=== PATIENT | male | born 1955 | race Caucasian/White ===

== ENCOUNTER 2016-09-17 01:52 | Inpatient (IN) | payer MEDICARE, OTHER ==
[2016-09-17] MEDS ORDERED: Acetaminophen 325 MG Tab ONE (02:09)
[2016-09-17 02:16] LABS: CHLORIDE,CL 102 mEq/L (98-106); SODIUM,NA 141 mEq/L (136-145)
--- NOTE | 2016-09-17 02:52 | EDM.PDOC ---
ED HPI GENERAL MEDICAL PROBLEM - General Chief Complaint: Diabetic Complaint Stated Complaint: hypoglycemia Time Seen by Provider: 09/17/16 01:55 Source of Information: Reports: Patient, EMS, Family () History Limitations: Reports: Other (HEARING LOSS) - History of Present Illness INITIAL COMMENTS - FREE TEXT/NARRATIVE: HARJINDER IS A 60 YO MALE WHO PRESENTS TO THE ER VIA [facility]. EMS WAS DISPATCHED TO HIS HOUSE WITH CONCERNS OF A HYPOGLYCEMIC EPISODE. UPON ARRIVAL GLUCOSE WAS GIVEN TO PATIENT AND HE BECAME MORE ALERT. STATES HE HAS BEEN COMPLAINING OF NOT FEELING VERY WELL TODAY. HAS BEEN COMPLAINING OF SOME ABDOMINAL DISCOMFORT AND NAUSEA. UPON ARRIVAL HE HAS BEEN ALERT AND ORIENTATED, ANSWERING ALL QUESTIONS APPROPRIATELY. HARJINDER STATES HE WOKE UP THIS EVENING WITH THE SHAKES. STATES HE DIDN'T FEEL IF HE IS RUNNING A FEVER, JUST COULDN'T STOP SHAKING. HE ADMITS HE HAD SOME MILD DIARRHEA YESTERDAY BUT STATES HE DOES HAVE A HISTORY OF LOOSE STOOLS. NO BOWEL MOVEMENTS TODAY. HE IS A KNOWN DIABETIC AND TAKES NOVOLOG AND LANTUS. HAS NOT TAKEN ANY MEDICATIONS OR INSULIN THIS EVENING. Onset: Today Location: Reports: Abdomen Associated Symptoms: Reports: Fever/Chills, Headaches, Loss of Appetite, Nausea/ Vomiting (NAUSEA, NO VOMITING). Denies: Confusion, Chest Pain, Cough, cough w sputum, Diaphoresis, Rash, Shortness of Breath, Weakness Lower Abdominal Pain Score (Numeric/FACES): 5 - Related Data Allergies Allergy/AdvReac Type Severity Reaction Status Date / Time vancomycin Allergy Intermediate Rash Verified 09/17/16 02:37 Home Meds: Home Meds Albuterol Sulfate [Proair Respiclick] 90 mcg IH Q6H PRN 04/08/15 [History] Aspirin [Adult Low Dose Aspirin EC] 81 mg PO DAILY 04/08/15 [History] Budesonide/Formoterol [Symbicort 160-4.5 MCG] 2 puff IH BID 04/08/15 [History] Cholecalciferol (Vitamin D3) [Vitamin D3] 1,000 unit PO BID 04/08/15 [History] Clopidogrel Bisulfate [Clopidogrel] 75 mg PO DAILY 04/08/15 [History] Furosemide 80 mg PO DAILY 04/08/15 [History] Gabapentin [Neurontin] 600 mg PO QAM 04/08/15 [History] Ibuprofen 1 tab PO TID PRN 04/08/15 [History] Insulin Aspart [NovoLOG] 70 unit SUBCUT QAM 04/08/15 [History] Insulin Glarg,Human.Rec.Analog [LantUS] 75 unit SQ QAM 04/08/15 [History] Ipratropium/Albuterol Sulfate [Iprat-Albut 0.5-3(2.5) mg/3 ml] 1 unit NEB Q6HR PRN 04/08/15 [History] Lisinopril 40 mg PO DAILY 04/08/15 [History] Magnesium Oxide 420 mg PO BID 04/08/15 [History] Multivitamin [Multi-Vitamin Daily] 1 tab PO DAILY 04/08/15 [History] Omeprazole 20 mg PO BIDAC 04/08/15 [History] Urea [Urea 20% Crm] 1 gm TOP DAILY PRN 04/08/15 [History] Vilazodone [Viibryd] 40 mg PO DAILY 04/08/15 [History] metFORMIN HCl [Metformin HCl] 1,000 mg PO BID 04/08/15 [History] Gabapentin [Neurontin] 900 mg PO BEDTIME 04/14/15 [History] Budesonide [Pulmicort Flexhaler] 2 puff IH BID 03/12/16 [History] Hydrocodone/Acetaminophen [Hydrocodon-Acetaminophen 5-325] 1 - 2 tab PO Q6H PRN 03/12/16 [History] Insulin Aspart [NovoLOG] 70 unit SUBCUT QPM 03/12/16 [History] Insulin Glargine,Hum.Rec.Anlog [Lantus Solostar] 75 unit SQ QPM 03/12/16 [ History] Areds 2 1 tab PO DAILY 09/17/16 [History] Glucosamine HCl [Glucosamine] 1,500 mg PO DAILY 09/17/16 [History] Metoprolol Succinate 200 mg PO QPM 09/17/16 [History] Past Medical History Cardiovascular History: Reports: High Cholesterol, Hypertension, Stents Respiratory History: Reports: COPD Other Respiratory History: pulm scraping in 2013 Other Genitourinary History: vasEctomy Other Musculoskeletal History: needs bilateral knee replacements Psychiatric History: Reports: Depression Endocrine/Metabolic History: Reports: Diabetes, Type II, Obesity/BMI 30+ Dermatologic History: Reports: Cellulitis Other Dermatologic History: ulcer to right leg - Past Surgical History HEENT Surgical History: Reports: None Cardiovascular Surgical History: Reports: Coronary Artery Stent Respiratory Surgical History: Reports: Other (See Below) (lung surgery) GI Surgical History: Reports: Cholecystectomy Male Surgical History: Reports: Vasectomy Neurological Surgical History: Reports: None Musculoskeletal Surgical History: Reports: Knee Replacement Social & Family History - Family History Family Medical History: Noncontributory - Tobacco Use Smoking Status *Q: Former Smoker Years of Tobacco use: 40 Used Tobacco, but Quit: Yes Month Tobacco Last Used: 2006 - Recreational Drug Use Recreational Drug Use: No ED ROS GENERAL - Review of Systems Review Of Systems: See Below Constitutional: Reports: Chills, Fatigue, Decreased Appetite. Denies: Fever HEENT: Reports: No Symptoms. Denies: Ear Pain, Sinus Problem Respiratory: Denies: Shortness of Breath, Wheezing, Cough Cardiovascular: Reports: Edema. Denies: Chest Pain, Palpitations Endocrine: Reports: Fatigue, Low Glucose GI/Abdominal: Reports: Abdominal Pain (RLQ), Diarrhea (yesterday, no bowel movement today), Decreased Appetite, Flatus, Nausea. Denies: Bloody Stool, Vomiting : Reports: No Symptoms Musculoskeletal: Reports: Back Pain (low back pain) Neurological: Reports: Headache. Denies: Confusion, Dizziness Psychiatric: Reports: No Symptoms ED EXAM GENERAL NO PERIP PULSE - Physical Exam Exam: See Below Exam Limited By: Other (hearing impairment) General Appearance: Alert, No Apparent Distress, Obese Eye Exam: Bilateral Eye: Normal Inspection, PERRL Ears: Normal External Exam, Hearing Loss Nose: Normal Inspection, No Blood Throat/Mouth: Normal Inspection, Normal Lips, Normal Gums, Normal Oropharynx, Normal Voice, No Airway Compromise Head: Atraumatic, Normocephalic Respiratory/Chest: Decreased Breath Sounds. No: Respiratory Distress, Rales, Rhonchi, Wheezing Cardiovascular: Regular Rate, Rhythm, No Murmur GI/Abdominal: Soft, No Organomegaly, Distended, Tender (RLQ), Other (obese). No : Rigid Back Exam: No: CVA Tenderness (L), CVA Tenderness (R) Extremities: Non-Tender, Pedal Edema (3+ RLE, 2+ LLE), Increased Warmth (RLE) Neurological: Alert, Oriented, Normal Cognition, No Motor/Sensory Deficits Psychiatric: Normal Affect, Normal Mood Skin Exam: Increased Warmth. No: Diaphoretic, Ecchymosis, Rash Course - Vital Signs Last Recorded V/S: Last Vital Signs Temp 102.9 F H 09/17/16 02:30 Pulse 112 H 09/17/16 01:55 Resp 28 H 09/17/16 01:55 BP 106/59 L 09/17/16 01:55 Pulse Ox 87 L 09/17/16 01:55 - Orders/Labs/Meds Orders: Active Orders 24 hr Category Date Time Status Patient Status Manage Transfer [TRANSFER] Routine ADT 09/17/16 04:07 Ordered Oxygen Therapy, ED [RC] ASDIRECTED Care 09/17/16 02:00 Active Abdomen Pelvis w Cont [CT] Routine Exams 09/17/16 02:35 Taken CULTURE BLOOD [BC] Stat Lab 09/17/16 01:57 Results CULTURE BLOOD [BC] Stat Lab 09/17/16 02:15 Received Acetaminophen/HYDROcodone [Havana 325-5 MG] Med 09/17/16 04:18 Active 1 - 2 tab PO Q6H PRN Albuterol Sulfate [Proair Respiclick] Med 09/17/16 04:18 Active 90 mcg IH Q6H PRN Albuterol/Ipratropium [DuoNeb 3.0-0.5 MG/3 ML] Med 09/17/16 04:18 Ordered DOSE ml NEB Q6HR PRN Aspirin [Halfprin] Med 09/17/16 08:00 Active 81 mg PO DAILY Budesonide [Pulmicort Flexhaler] Med 09/17/16 08:00 Active 2 puff IH BID Budesonide/Formoterol Med 09/17/16 08:00 Active 2 puff IH BID Clopidogrel [Plavix] Med 09/17/16 08:00 Active 75 mg PO DAILY Furosemide [Lasix] Med 09/17/16 08:00 Active 80 mg PO DAILY Gabapentin Med 09/17/16 20:00 Active 900 mg PO BEDTIME Gabapentin [Neurontin] Med 09/17/16 08:00 Active 600 mg PO QAM Insulin Aspart Med 09/17/16 08:00 Active 70 unit SUBCUT QAM Insulin Aspart [NovoLOG] Med 09/17/16 20:00 Active 70 unit SUBCUT QPM Insulin Glarg,Human.Rec.Analog Med 09/17/16 08:00 Active 75 unit SQ QAM Insulin Glargine,Hum.Rec.Anlog [Lantus Solostar] Med 09/17/16 20:00 Active 75 unit SQ QPM Lactated Ringers [Ringers, Lactated] 1,000 ml Med 09/17/16 03:00 Active IV ASDIRECTED Lisinopril [Prinivil] Med 09/17/16 08:00 Active 40 mg PO DAILY Magnesium Oxide [Magnesium Oxide] Med 09/17/16 08:00 Active 420 mg PO BID Metoprolol Succinate [Metoprolol Succinate] Med 09/17/16 20:00 Active 200 mg PO QPM Omeprazole [Omeprazole] Med 09/17/16 07:30 Active 20 mg PO BIDAC Vilazodone [Viibryd] Med 09/17/16 08:00 Active 40 mg PO DAILY metFORMIN HCl [Metformin HCl] Med 09/19/16 08:00 Active 1,000 mg PO BID Blood Culture x2 Reflex Set [OM.PC] Stat Oth 09/17/16 01:56 Ordered Resuscitation Status Routine Resus Stat 09/17/16 04:10 Ordered Medication Orders Hydrocodone Bitart/Acetaminophen (Havana 325-5 Mg) 1 - 2 tab PO Q6H PRN PRN Reason: Pain Albuterol/Ipratropium (Duoneb 3.0-0.5 Mg/3 Ml) ml NEB Q6HR PRN PRN Reason: Dyspnea Aspirin (Halfprin) 81 mg PO DAILY [facility] Clopidogrel Bisulfate (Plavix) 75 mg PO DAILY [facility] Furosemide (Lasix) 80 mg PO DAILY [facility] Gabapentin (Neurontin) 600 mg PO QAM [facility] Lactated Ringer's (Ringers, Lactated) 1,000 mls @ 150 mls/hr IV ASDIRECTED [facility] Last Admin: 09/17/16 03:00 Dose: 150 mls/hr Insulin Aspart (Novolog) 70 unit SUBCUT QPM [facility] Lisinopril (Prinivil) 40 mg PO DAILY [facility] Non-Formulary Medication (Albuterol Sulfate [Proair Respiclick]) 90 mcg IH Q6H PRN PRN Reason: Dyspnea Non-Formulary Medication (Budesonide [Pulmicort Flexhaler]) 2 puff IH BID [facility] Non-Formulary Medication (Budesonide/Formoterol) 2 puff IH BID [facility] Non-Formulary Medication (Gabapentin) 900 mg PO BEDTIME [facility] Non-Formulary Medication (Insulin Aspart) 70 unit SUBCUT QAM [facility] Non-Formulary Medication (Insulin Glarg,Human.Rec.Analog) 75 unit SQ QAM [facility] Non-Formulary Medication (Insulin Glargine,Hum.Rec.Anlog [Lantus Solostar]) 75 unit SQ QPM [facility] Non-Formulary Medication (Magnesium Oxide [Magnesium Oxide]) 420 mg PO BID [facility] Non-Formulary Medication (Metoprolol Succinate [Metoprolol Succinate]) 200 mg PO QPM [facility] Non-Formulary Medication (Omeprazole [Omeprazole]) 20 mg PO BIDAC [facility] Non-Formulary Medication (Vilazodone [Viibryd]) 40 mg PO DAILY [facility] Non-Formulary Medication (Metformin Hcl [Metformin Hcl]) 1,000 mg PO BID [facility] Labs: Laboratory Tests 09/17/16 09/17/16 09/17/16 Range/Units 01:56 01:56 01:56 WBC 16.5 H (5.0-10.0) 10^3/uL RBC 4.71 (4.50-6.00) 10^6/uL Hgb 13.6 L (14.0-18.0) g/dL Hct 42.4 (40.0-54.0) % MCV 90.0 (82.0-94.0) fL MCH 28.9 (27.0-32.0) pg MCHC 32.1 L (33.0-38.0) g/dL RDW Coeff of Jac 15.1 H (11.0-15.0) % Plt Count 197 (150-400) 10^3/uL Neut % (Auto) 87.4 H (35-85) % Lymph % (Auto) 4.2 L (10-55) % [place] % (Auto) 7.9 (0-16) % Eos % (Auto) 0.4 (0-5) % Baso % (Auto) 0.1 (0-3) % Neut # (Auto) 14.44 H (1.80-7.00) 10^3/uL Lymph # (Auto) 0.69 L (1.00-4.80) 10^3/uL [place] # (Auto) 1.30 H (0.00-0.80) 10^3/uL Eos # (Auto) 0.07 (0.00-0.45) 10^3/uL Baso # (Auto) 0.02 10^3/uL Add Manual Diff No Neutrophils % (Manual) Cancelled Band Neutrophils % Cancelled Lymphocytes % (Manual) Cancelled Monocytes % (Manual) Cancelled Eosinophils % (Manual) Cancelled Basophils % (Manual) Cancelled Metamyelocytes % Cancelled Myelocytes % Cancelled Blast Cells % Cancelled Absolute Neutrophils Cancelled Lymphocytes # (Manual) Cancelled Monocytes # (Manual) Cancelled Eosinophils # (Manual) Cancelled Basophils # (Manual) Cancelled Nucleated RBCs Cancelled Differential Comment Cancelled Bilobed Neuts Cancelled Hypersegmented Neuts Cancelled Abnormal Lymphocytes Cancelled Reactive Lymphocytes Cancelled Vacuolated Monocytes Cancelled Smudge Cells Cancelled Toxic Granulation Cancelled Dohle Bodies Cancelled Naun Rods Cancelled WBC Morphology Comment Cancelled Platelet Estimate Cancelled Hypogranular Platelets Cancelled Platelet Agranulation Cancelled Clumped Platelets Cancelled Giant Platelets Cancelled Plt Morphology Comment Cancelled Polychromasia Cancelled Hypochromasia Cancelled Poikilocytosis Cancelled Basophilic Stippling Cancelled Anisocytosis Cancelled Microcytosis Cancelled Macrocytosis Cancelled Spherocytes Cancelled Micro Spherocytes Cancelled Sickle Cells Cancelled Target Cells Cancelled Tear Drop Cells Cancelled Stomatocytes Cancelled Helmet Cells Cancelled [place] Bodies Cancelled Ricky Cells Cancelled Elliptocytes Cancelled Acanthocytes (Spur) Cancelled Rouleaux Cancelled Schistocytes Cancelled RBC Morph Comment Cancelled Sodium 141 (136-145) mEq/L Potassium 4.6 (3.5-5.0) mEq/L Chloride 102 (98-106) mEq/L Carbon Dioxide 31 (21-32) mmol/L BUN 20 H (7-18) mg/dL Creatinine 1.2 (0.7-1.3) mg/dL Est Cr Clr Drug Dosing TNP Estimated GFR (MDRD) > 60 (>=60) mL/min Glucose 131 H D (75-99) mg/dL Calcium 8.4 (8.4-10.1) mg/dL Total Bilirubin 0.6 (0.0-1.0) mg/dL AST 34 (15-37) U/L ALT 36 (12-78) U/L Alkaline Phosphatase 52 (46-116) U/L C-Reactive Protein 3.9 H (0.2-0.8) mg/dL Total Protein 7.2 (6.4-8.2) g/dL Albumin 3.5 (3.4-5.0) g/dL Amylase 49 (25-115) U/L Urine Color Mary Ellen (YELLOW) Urine Appearance Clear (CLEAR) Urine pH 5.5 (4.5-8.0) Ur Specific [place] 1.027 H (1.003-1.020) Urine Protein >=300 H (NEGATIVE) mg/dL Urine Glucose (UA) Negative (NEGATIVE) mg/dL Urine Ketones Negative (NEGATIVE) mg/dL Urine Occult Blood Trace-intact H (NEGATIVE) Urine Nitrite Negative (NEGATIVE) Urine Bilirubin Negative (NEGATIVE) Urine Urobilinogen 0.2 (0.2-1.0) EU/dL Ur Leukocyte Esterase Negative (NEGATIVE) Urine RBC 0-5 (0-5) /HPF Urine WBC 0-5 (0-5) /HPF Ur Epithelial Cells Few H (NOT SEEN) /HPF Hyaline Casts Rare (NOT SEEN) /LPF Urine Mucus Moderate H (NOT SEEN) /HPF Meds: Medications Generic Name Dose Route Start Last Admin Trade Name Freq PRN Reason Stop Dose Admin Hydrocodone Bitart/Acetaminophen 1 - 2 tab 09/17/16 04:18 Havana 325-5 Mg PO Q6H PRN Pain Albuterol/Ipratropium ml 09/17/16 04:18 Duoneb 3.0-0.5 Mg/3 Ml NEB Q6HR PRN Dyspnea Aspirin 81 mg 09/17/16 08:00 Halfprin PO DAILY [facility] Clopidogrel Bisulfate 75 mg 09/17/16 08:00 Plavix PO DAILY [facility] Furosemide 80 mg 09/17/16 08:00 Lasix PO DAILY [facility] Gabapentin 600 mg 09/17/16 08:00 Neurontin PO QAM [facility] Lactated Ringer's 1,000 mls @ 150 mls/hr 09/17/16 03:00 09/17/16 03:00 Ringers, Lactated IV 150 mls/hr ASDIRECTED [facility] Administration Insulin Aspart 70 unit 09/17/16 20:00 Novolog SUBCUT QPM [facility] Lisinopril 40 mg 09/17/16 08:00 Prinivil PO DAILY [facility] Non-Formulary Medication 90 mcg 09/17/16 04:18 Albuterol Sulfate [Proair Respiclick] IH Q6H PRN Dyspnea Non-Formulary Medication 2 puff 09/17/16 08:00 Budesonide [Pulmicort Flexhaler] IH BID [facility] Non-Formulary Medication 2 puff 09/17/16 08:00 Budesonide/Formoterol IH BID [facility] Non-Formulary Medication 900 mg 09/17/16 20:00 Gabapentin PO BEDTIME [facility] Non-Formulary Medication 70 unit 09/17/16 08:00 Insulin Aspart SUBCUT QAM [facility] Non-Formulary Medication 75 unit 09/17/16 08:00 Insulin Glarg,Human.Rec.Analog SQ QAM [facility] Non-Formulary Medication 75 unit 09/17/16 20:00 Insulin Glargine,Hum.Rec.Anlog [Lantus Solostar] SQ QPM [facility] Non-Formulary Medication 420 mg 09/17/16 08:00 Magnesium Oxide [Magnesium Oxide] PO BID [facility] Non-Formulary Medication 200 mg 09/17/16 20:00 Metoprolol Succinate [Metoprolol Succinate] PO QPM [facility] Non-Formulary Medication 20 mg 09/17/16 07:30 Omeprazole [Omeprazole] PO BIDAC [facility] Non-Formulary Medication 40 mg 09/17/16 08:00 Vilazodone [Viibryd] PO DAILY [facility] Non-Formulary Medication 1,000 mg 09/19/16 08:00 Metformin Hcl [Metformin Hcl] PO BID [facility] Discontinued Medications Generic Name Dose Route Start Last Admin Trade Name Freq PRN Reason Stop Dose Admin Acetaminophen Confirm 09/17/16 02:09 09/17/16 03:04 Tylenol Administered 09/17/16 02:10 Not Given Dose 650 mg .ROUTE .STK-MED ONE Acetaminophen 650 mg 09/17/16 03:01 09/17/16 02:03 Tylenol PO 09/17/16 03:02 650 mg NOW ONE Administration Iopamidol 100 ml 09/17/16 03:05 09/17/16 03:26 Isovue-300 (61%) IVPUSH 09/17/16 03:06 100 ml ONETIME ONE Administration - Radiology Interpretation Free Text/Narrative:: Radiology preliminary report ruled out appendicitis. Discussed retroperitoneal lymph node enlargement which was also noted on CT back in 2013. No acute findings. CT Results Date: 09/17/16 CT Results Time: 04:10 Departure - Departure Time of Disposition: 04:10 Disposition: Admitted As Inpatient 67 Clinical Impression: Cellulitis of right lower extremity Leukocytosis Qualifiers: Leukocytosis type: unspecified Qualified Code(s): D72.829 - Elevated white blood cell count, unspecified Fever Qualifiers: Fever type: due to other condition Qualified Code(s): R50.81 - Fever presenting with conditions classified elsewhere - Discharge Information Referrals: Domo Bowens MD [Primary Care Provider] - Forms: ED Department Discharge - Problem List & Annotations (1) Cellulitis of right lower extremity SNOMED Code(s): 397671806 Code(s): L03.115 - CELLULITIS OF RIGHT LOWER LIMB Status: Acute Current Visit: Yes (2) Fever SNOMED Code(s): 113741397 Code(s): R50.9 - FEVER, UNSPECIFIED Status: Acute Current Visit: Yes Qualifiers: Fever type: due to other condition Qualified Code(s): R50.81 - Fever presenting with conditions classified elsewhere (3) Leukocytosis SNOMED Code(s): 409376779, 497134738 Code(s): D72.829 - ELEVATED WHITE BLOOD CELL COUNT, UNSPECIFIED Status: Acute Current Visit: Yes Qualifiers: Leukocytosis type: unspecified Qualified Code(s): D72.829 - Elevated white blood cell count, unspecified - Problem List Review Problem List Initiated/Reviewed/Updated: Yes - My Orders Last 24 Hours: My Active Orders 09/17/16 01:56 Blood Culture x2 Reflex Set [OM.PC] Stat 09/17/16 01:57 CULTURE BLOOD [BC] Stat 09/17/16 02:00 Oxygen Therapy, ED [RC] ASDIRECTED 09/17/16 02:15 CULTURE BLOOD [BC] Stat 09/17/16 02:35 Abdomen Pelvis w Cont [CT] Routine 09/17/16 03:00 Lactated Ringers [Ringers, Lactated] 1,000 ml IV ASDIRECTED 09/17/16 04:07 Patient Status Manage Transfer [TRANSFER] Routine 09/17/16 04:10 Resuscitation Status Routine 09/17/16 04:18 Acetaminophen/HYDROcodone [Havana 325-5 MG] 1 - 2 tab PO Q6H PRN Albuterol Sulfate [Proair Respiclick] 90 mcg IH Q6H PRN Albuterol/Ipratropium [DuoNeb 3.0-0.5 MG/3 ML] DOSE ml NEB Q6HR PRN 09/17/16 07:30 Omeprazole [Omeprazole] 20 mg PO BIDAC 09/17/16 08:00 Aspirin [Halfprin] 81 mg PO DAILY Budesonide [Pulmicort Flexhaler] 2 puff IH BID Budesonide/Formoterol 2 puff IH BID Clopidogrel [Plavix] 75 mg PO DAILY Furosemide [Lasix] 80 mg PO DAILY Gabapentin [Neurontin] 600 mg PO QAM Insulin Aspart 70 unit SUBCUT QAM Insulin Glarg,Human.Rec.Analog 75 unit SQ QAM Lisinopril [Prinivil] 40 mg PO DAILY Magnesium Oxide [Magnesium Oxide] 420 mg PO BID Vilazodone [Viibryd] 40 mg PO DAILY 09/17/16 20:00 Gabapentin 900 mg PO BEDTIME Insulin Aspart [NovoLOG] 70 unit SUBCUT QPM Insulin Glargine,Hum.Rec.Anlog [Lantus Solostar] 75 unit SQ QPM Metoprolol Succinate [Metoprolol Succinate] 200 mg PO QPM 09/19/16 08:00 metFORMIN HCl [Metformin HCl] 1,000 mg PO BID - Assessment/Plan Admission H&P: Please use this note as an admission H&P Last 24 Hours: My Active Orders 09/17/16 01:56 Blood Culture x2 Reflex Set [OM.PC] Stat 09/17/16 01:57 CULTURE BLOOD [BC] Stat 09/17/16 02:00 Oxygen Therapy, ED [RC] ASDIRECTED 09/17/16 02:15 CULTURE BLOOD [BC] Stat 09/17/16 02:35 Abdomen Pelvis w Cont [CT] Routine 09/17/16 03:00 Lactated Ringers [Ringers, Lactated] 1,000 ml IV ASDIRECTED 09/17/16 04:07 Patient Status Manage Transfer [TRANSFER] Routine 09/17/16 04:10 Resuscitation Status Routine 09/17/16 04:18 Acetaminophen/HYDROcodone [Havana 325-5 MG] 1 - 2 tab PO Q6H PRN Albuterol Sulfate [Proair Respiclick] 90 mcg IH Q6H PRN Albuterol/Ipratropium [DuoNeb 3.0-0.5 MG/3 ML] DOSE ml NEB Q6HR PRN 09/17/16 07:30 Omeprazole [Omeprazole] 20 mg PO BIDAC 09/17/16 08:00 Aspirin [Halfprin] 81 mg PO DAILY Budesonide [Pulmicort Flexhaler] 2 puff IH BID Budesonide/Formoterol 2 puff IH BID Clopidogrel [Plavix] 75 mg PO DAILY Furosemide [Lasix] 80 mg PO DAILY Gabapentin [Neurontin] 600 mg PO QAM Insulin Aspart 70 unit SUBCUT QAM Insulin Glarg,Human.Rec.Analog 75 unit SQ QAM Lisinopril [Prinivil] 40 mg PO DAILY Magnesium Oxide [Magnesium Oxide] 420 mg PO BID Vilazodone [Viibryd] 40 mg PO DAILY 09/17/16 20:00 Gabapentin 900 mg PO BEDTIME Insulin Aspart [NovoLOG] 70 unit SUBCUT QPM Insulin Glargine,Hum.Rec.Anlog [Lantus Solostar] 75 unit SQ QPM Metoprolol Succinate [Metoprolol Succinate] 200 mg PO QPM 09/19/16 08:00 metFORMIN HCl [Metformin HCl] 1,000 mg PO BID Plan: Will admit to Dr. Bowens's services. Will initiate Zosyn therapy as well. Dr. Bowens will follow Harjinder during his stay.
[2016-09-17] MEDS: Lactated Ringers 1,000 ML IV SCH ×2 (03:00→10:42)
[2016-09-17] MEDS ORDERED: Acetaminophen 325 MG Tab PO ONE (03:01)
[2016-09-17] MEDS ORDERED: Iopamidol 612 MG/ML 100 ML Bottle IVPUSH ONE (03:05)
[2016-09-17] MEDS ORDERED: ALBUTEROL SULFATE 90 MCG IH PRN (04:18)
[2016-09-17] MEDS ORDERED: Albuterol/Ipratropium 3.0-0.5 MG/3 ML Neb Soln NEB PRN (04:18)
[2016-09-17] MEDS ORDERED: Enoxaparin 40 MG/0.4 ML Syringe SUBCUT SCH (04:32)
[2016-09-17] MEDS ORDERED: Docusate Sodium 100 MG Cap PO PRN (04:32)
[2016-09-17] MEDS ORDERED: Piperacillin/Tazobactam 3.375 GM in Sodium Chloride 0.9% 50 ML IV SCH (04:32)
[2016-09-17] MEDS ORDERED: Acetaminophen 325 MG Tab PO PRN (04:32)
[2016-09-17] MEDS ORDERED: Temazepam 15 MG Cap PO PRN (04:32)
[2016-09-17] MEDS: Ibuprofen 200 MG Tab PO PRN ×2 (06:36→17:00)
[2016-09-17] MEDS ORDERED: Non-Formulary Medication 1 Each (Omeprazole [Omeprazole] 20 MG) PO SCH (07:30)
[2016-09-17] MEDS: Aspirin 81 MG Tab.EC PO SCH (07:39)
[2016-09-17] MEDS: Clopidogrel 75 MG Tab PO SCH (07:39)
[2016-09-17] MEDS: Gabapentin 300 MG Cap PO SCH (07:39)
[2016-09-17] MEDS: Furosemide 80 MG Tab PO SCH (07:40)
[2016-09-17] MEDS: Lisinopril 20 MG Tab PO SCH (07:40)
[2016-09-17] MEDS ORDERED: INSULIN ASPART 70 UNIT SUBCUT SCH (08:00)
[2016-09-17] MEDS ORDERED: INSULIN GLARGINE SQ SCH (08:00)
[2016-09-17] MEDS ORDERED: Non-Formulary Medication 1 Each (Magnesium Oxide [Magnesium Oxide] 420 MG) PO SCH (08:00)
[2016-09-17] MEDS ORDERED: Non-Formulary Medication 1 Each (Budesonide/Formoterol 2 PUFF) IH SCH (08:00)
[2016-09-17] MEDS ORDERED: [UNRECOGNIZED DRUG - OTHER] SQ SCH (08:00)
[2016-09-17] MEDS ORDERED: Insulin Detemir 100 Units/ML 3 ML Pen SUBCUT SCH (08:00)
[2016-09-17] MEDS ORDERED: BUDESONIDE IH SCH (08:00)
[2016-09-17] MEDS: Insulin Aspart 100 Units/ML 3 ML Pen SUBCUT SCH ×4 (08:06→17:34)
[2016-09-17] MEDS ORDERED: Albuterol 8 GM Inhaler INH PRN (08:21)
[2016-09-17] MEDS: VILAZODONE 40 MG PO SCH (08:53)
[2016-09-17] MEDS: Pantoprazole 40 MG Tab.CR PO SCH ×2 (08:53→17:00)
[2016-09-17] MEDS: Insulin Detemir 100 Units/ML 3 ML Pen SUBCUT SCH ×2 (08:55→19:56)
[2016-09-17] MEDS: Formoterol/Mometasone 200-5 MCG 8.8 GM Inhaler IH SCH ×2 (09:23→20:01)
[2016-09-17] MEDS: Acetaminophen/HYDROcodone 325-5 MG Tab PO PRN ×2 (10:47→19:44)
[2016-09-17] MEDS: Piperacillin/Tazobactam 3.375 GM in Sodium Chloride 0.9% 50 ML IV SCH ×3 (11:17→23:23)
[2016-09-17] MEDS ORDERED: Insulin Aspart 100 Units/ML 3 ML Pen SUBCUT SCH (17:30)
[2016-09-17] MEDS ORDERED: INSULIN GLARGINE HUM REC ANLOG 75 UNIT SQ SCH (20:00)
[2016-09-17] MEDS ORDERED: Metoprolol Succinate 100 MG Tab.ER PO SCH (20:00)
[2016-09-17] MEDS ORDERED: Gabapentin 300 MG Cap PO SCH (20:00)
[2016-09-17] MEDS ORDERED: [UNRECOGNIZED DRUG - OTHER] SQ SCH (20:00)
[2016-09-18] MEDS: Piperacillin/Tazobactam 3.375 GM in Sodium Chloride 0.9% 50 ML IV SCH (06:02)
[2016-09-18] MEDS: Acetaminophen/HYDROcodone 325-5 MG Tab PO PRN (06:08)
--- NOTE | 2016-09-18 07:26 | PN ---
DATE: 09/17/2016 S: Scott Nogueira Junior came in with a cellulitis with sepsis, right lower extremity. O: On examination, the leg is much improved apparently from what it was from yesterday. Pulses are decreased. There is some numbness at bottom of his feet, but rest of his neurovascular bundles intact. ASSESSMENT: CELLULITIS, RIGHT LOWER EXTREMITY. P: Continue IV antibiotics. MARGARETH/KEDAR /[id number]
[2016-09-18 07:36] LABS: CHLORIDE,CL 104 mEq/L (98-106); SODIUM,NA 140 mEq/L (136-145)
[2016-09-18] MEDS: Clopidogrel 75 MG Tab PO SCH (07:42)
[2016-09-18] MEDS: Pantoprazole 40 MG Tab.CR PO SCH (07:42)
[2016-09-18] MEDS: Aspirin 81 MG Tab.EC PO SCH (07:42)
[2016-09-18] MEDS: Furosemide 80 MG Tab PO SCH (07:42)
[2016-09-18] MEDS: Gabapentin 300 MG Cap PO SCH (07:43)
[2016-09-18] MEDS: Lisinopril 20 MG Tab PO SCH (07:43)
[2016-09-18] MEDS: Insulin Detemir 100 Units/ML 3 ML Pen SUBCUT SCH (07:45)
[2016-09-18] MEDS: Insulin Aspart 100 Units/ML 3 ML Pen SUBCUT SCH ×2 (07:50→07:55)
[2016-09-18] MEDS: VILAZODONE 40 MG PO SCH (07:55)
[2016-09-18] MEDS: Formoterol/Mometasone 200-5 MCG 8.8 GM Inhaler IH SCH ×2 (07:56→08:54)
[2016-09-18] MEDS ORDERED: Enoxaparin 40 MG/0.4 ML Syringe SUBCUT SCH (08:00)
[2016-09-18 08:32] VITALS: BP 127/78
[2016-09-19] MEDS ORDERED: Non-Formulary Medication 1 Each (Metformin Hcl [Metformin Hcl] 1,000 MG) PO SCH (08:00)
[2016-09-19] MEDS ORDERED: metFORMIN 500 MG Tab PO SCH (08:00)
--- NOTE | 2016-09-21 07:54 | DISCH ---
HISTORY: Scott Shelton Jr. came in with a mild cellulitis of his right lower extremity and started on IV antibiotics, responded nicely. At the time of discharge, he had no pain. There was still some erythema, but he does have history of chronic vasculitis. Neurovascular was intact, although he was numb on the bottom of his feet. LABORATORY DATA: Labs here in the hospital, CBC looked good. Urine was clear. C-reactive protein jumped a little bit from 3-16, but clinically he was better. DISPOSITION: The patient is now discharged home. He will see him back in the clinic in 2 weeks. We will do his diabetic check with A1c. DISCHARGE MEDICATIONS: Home medications plus Levaquin 500 daily for 8 days. DISCHARGE DIAGNOSIS: CELLULITIS, RIGHT LOWER EXTREMITY; DIABETES MELLITUS; HYPERTENSION; AND PERIPHERAL NEUROPATHY. MARGARETH/KEDAR /[id number]
== END 2016-09-18 10:21 | disposition home or self-care (01) | DRG 603 ==
LOC: CC.ED 01:52 → CC.MS 04:10
PROVIDERS: ADMIT Physician Assistant Medical; ATTEND General Practice
DX: L03.115 Cellulitis of right lower limb (principal); R50.81 Fever presenting with conditions classified elsewhere; D72.89 Other specified disorders of white blood cells; E11.649 Type 2 diabetes mellitus with hypoglycemia without coma; E11.42 Type 2 diabetes mellitus with diabetic polyneuropathy; J44.9 Chronic obstructive pulmonary disease, unspecified; I10 Essential (primary) hypertension; E78.00 Pure hypercholesterolemia, unspecified; Z95.5 Presence of coronary angioplasty implant and graft; F32.9 Major depressive disorder, single episode, unspecified; E66.9 Obesity, unspecified; Z68.30 Body mass index [BMI] 30.0-30.9, adult; Z87.891 Personal history of nicotine dependence; Z88.1 Allergy status to other antibiotic agents; Z96.653 Presence of artificial knee joint, bilateral; Z79.82 Long term (current) use of aspirin; Z79.899 Other long term (current) drug therapy; I77.6 Arteritis, unspecified; Z79.4 Long term (current) use of insulin
CPT/HCPCS: 36415; 74177; 80053; 81001; 82150; 85025; 86140; 87040 ×2; 96360; 99285; A9270; J7120; Q9967 ×2; 80048; 82962; 94640; 94760; J1650; J1815-GY; J2543; J7050

== ENCOUNTER 2016-12-07 20:47 | Inpatient (IN) | payer MEDICARE, OTHER ==
--- NOTE | 2016-12-07 21:00 | EDM.PDOC ---
ED HPI GENERAL MEDICAL PROBLEM - General Chief Complaint: General Stated Complaint: dizzy,blurred vision, can't keep anything donw Time Seen by Provider: 12/07/16 20:55 Source of Information: Reports: Patient, Family, Old Records History Limitations: Reports: No Limitations - History of Present Illness INITIAL COMMENTS - FREE TEXT/NARRATIVE: Patient presents to ER C/O nausea, fatigue, visual disturbance for past week. He states feelings of nausea some vomiting undigested food. Patient states he had appointment with Dr. Bowens on Wednesday but is unable to keep appointment. He has come in for evaluation and treatment. states wound on Left Great toe getting worse with oozing of blood. Patient affirms fever 100 range. He affirms is IDDM Onset: Gradual Onset Date: 12/02/16 Onset Time: 08:00 Duration: Getting Worse Location: Reports: Abdomen, Lower Extremity, Left Severity: Moderate Improves with: Reports: Rest Worsens with: Reports: Movement Associated Symptoms: Reports: Fever/Chills, Malaise, Nausea/Vomiting Treatments [employer]: Reports: Home Treatments - Related Data Allergies Allergy/AdvReac Type Severity Reaction Status Date / Time vancomycin Allergy Intermediate Rash Verified 12/07/16 20:52 Home Meds: Home Meds Albuterol Sulfate [Proair Respiclick] 90 mcg IH Q6H PRN 04/08/15 [History] Aspirin [Adult Low Dose Aspirin EC] 81 mg PO DAILY 04/08/15 [History] Budesonide/Formoterol [Symbicort 160-4.5 MCG] 2 puff IH BID 04/08/15 [History] Cholecalciferol (Vitamin D3) [Vitamin D3] 1,000 unit PO BID 04/08/15 [History] Clopidogrel Bisulfate [Clopidogrel] 75 mg PO DAILY 04/08/15 [History] Furosemide 80 mg PO DAILY 04/08/15 [History] Gabapentin [Neurontin] 600 mg PO QAM 04/08/15 [History] Ibuprofen 1 tab PO TID PRN 04/08/15 [History] Insulin Aspart [NovoLOG] 70 unit SUBCUT QAM 04/08/15 [History] Insulin Glarg,Human.Rec.Analog [Lantus] 75 unit SQ QAM 04/08/15 [History] Ipratropium/Albuterol Sulfate [Iprat-Albut 0.5-3(2.5) mg/3 ml] 1 unit NEB Q6HR PRN 04/08/15 [History] Lisinopril 40 mg PO DAILY 04/08/15 [History] Magnesium Oxide 420 mg PO BID 04/08/15 [History] Multivitamin [Multi-Vitamin Daily] 1 tab PO DAILY 04/08/15 [History] Omeprazole 20 mg PO BIDAC 04/08/15 [History] Urea [Urea 20% Crm] 1 gm TOP DAILY PRN 04/08/15 [History] metFORMIN HCl [Metformin HCl] 1,000 mg PO BID 04/08/15 [History] Gabapentin [Neurontin] 900 mg PO BEDTIME 04/14/15 [History] Budesonide [Pulmicort Flexhaler] 2 puff IH BID 03/12/16 [History] Hydrocodone/Acetaminophen [Hydrocodon-Acetaminophen 5-325] 1 - 2 tab PO Q6H PRN 03/12/16 [History] Insulin Aspart [NovoLOG] 70 unit SUBCUT QPM 03/12/16 [History] Insulin Glargine,Hum.Rec.Anlog [Lantus Solostar] 75 unit SQ QPM 03/12/16 [ History] Areds 2 1 tab PO DAILY 09/17/16 [History] Glucosamine HCl [Glucosamine] 1,500 mg PO DAILY 09/17/16 [History] Metoprolol Succinate 100 mg PO QPM 09/17/16 [History] DULoxetine HCl [Duloxetine HCl] 60 mg PO DAILY 12/07/16 [History] Past Medical History Cardiovascular History: Reports: High Cholesterol, Hypertension, Stents Respiratory History: Reports: COPD Other Respiratory History: pulm scraping in 2012 Other Genitourinary History: vasEctomy Other Musculoskeletal History: needs bilateral knee replacements Neurological History: Reports: Neuropathy, Peripheral Psychiatric History: Reports: Depression Endocrine/Metabolic History: Reports: Diabetes, Type II, Obesity/BMI 30+ Dermatologic History: Reports: Cellulitis Other Dermatologic History: ulcer to right leg - Infectious Disease History Infectious Disease History: Reports: None, Other (See Below) (Allergic to Vancomycin) - Past Surgical History HEENT Surgical History: Reports: None Cardiovascular Surgical History: Reports: Coronary Artery Stent Respiratory Surgical History: Reports: Other (See Below) GI Surgical History: Reports: Cholecystectomy Male Surgical History: Reports: Vasectomy Neurological Surgical History: Reports: None Musculoskeletal Surgical History: Reports: Knee Replacement Social & Family History - Family History Family Medical History: Noncontributory - Tobacco Use Smoking Status *Q: Former Smoker Years of Tobacco use: 40 Used Tobacco, but Quit: Yes Month Tobacco Last Used: 10 YEARS AGO - Recreational Drug Use Recreational Drug Use: No - Living Situation & Occupation Living situation: Reports: , with Family Occupation: Disabled ED ROS GENERAL - Review of Systems Review Of Systems: See Below Constitutional: Reports: Fever, Malaise, Weakness, Fatigue HEENT: Reports: No Symptoms Respiratory: Reports: No Symptoms Cardiovascular: Reports: No Symptoms, Lightheadedness Endocrine: Reports: Fatigue, High Glucose GI/Abdominal: Reports: Vomiting : Reports: No Symptoms Musculoskeletal: Reports: Foot Pain Skin: Reports: Wound (Left great toe) Neurological: Reports: Dizziness, Difficulty Walking, Weakness Psychiatric: Reports: Depression Hematologic/Lymphatic: Reports: No Symptoms Immunologic: Reports: No Symptoms ED EXAM, GENERAL - Physical Exam Exam: See Below Exam Limited By: No Limitations General Appearance: Alert, WD/WN, Mild Distress Eye Exam: Bilateral Eye: EOMI Ear Exam: Bilateral Ear: TM normal, Other (Hearing loss-Hearing Aid Right Ear) Nose: Normal Inspection, Normal Mucosa, No Blood Throat/Mouth: Normal Inspection, Normal Lips, Normal Voice, No Airway Compromise. No: Normal Teeth Head: Atraumatic, Normocephalic Neck: Normal Inspection, Supple, Non-Tender Respiratory/Chest: No Respiratory Distress, Lungs Clear, Normal Breath Sounds Cardiovascular: Normal Peripheral Pulses, Regular Rate, Rhythm, Other Peripheral Pulses: 1+: Dorsalis Pedis (L) (Edema dryness), Dorsalis Pedis (R) GI/Abdominal: Normal Bowel Sounds, Non-Tender (Rotund-Obese). No: Guarding, Rebound, Tender, Abnormal Bowel Sounds (Male) Exam: Deferred Rectal (Males) Exam: Deferred Back Exam: Normal Inspection Extremities: Normal Range of Motion, Normal Capillary Refill, Pedal Edema, Slow Capillary Refill, Other (quarter sized stage 2 lesion Left Great toe Distally) Neurological: Alert, Oriented, CN II-XII Intact, Normal Cognition, Normal Gait Psychiatric: Normal Affect, Normal Mood Skin Exam: Warm, Dry, Normal Color, Wound/Incision Lymphatic: No Adenopathy Course - Vital Signs Last Recorded V/S: Last Vital Signs Temp 38.1 C 12/07/16 20:48 Pulse 90 12/07/16 20:48 Resp 20 12/07/16 20:48 BP 110/58 L 12/07/16 20:48 Pulse Ox 92 L 12/07/16 20:48 - Orders/Labs/Meds Orders: Active Orders 24 hr Category Date Time Status CMP [COMPREHENSIVE METABOLIC PN,CMP] [CHEM] Stat Lab 12/07/16 20:53 Ordered CRP [C-REACTIVE PROTEIN] [CHEM] Stat Lab 12/07/16 20:54 Ordered CULTURE WOUND + SMEAR [RM] Stat Lab 12/07/16 20:53 Uncollected CULTURE WOUND [RM] Stat Lab 12/07/16 21:14 Ordered MICROALBUMIN/CREAT RATIO,URINE [URCHEM] Stat Lab 12/07/16 21:10 Received UA W/MICROSCOPIC [URIN] Stat Lab 12/07/16 20:54 Uncollected UA W/MICROSCOPIC [URIN] Stat Lab 12/07/16 21:08 Ordered Labs: Laboratory Tests 12/07/16 12/07/16 Range/Units 21:20 21:20 WBC 15.2 H (5.0-10.0) 10^3/uL RBC 4.01 L (4.50-6.00) 10^6/uL Hgb 11.5 L (14.0-18.0) g/dL Hct 36.6 L (40.0-54.0) % MCV 91.3 (82.0-94.0) fL MCH 28.7 (27.0-32.0) pg MCHC 31.4 L (33.0-38.0) g/dL RDW Coeff of Jac 16.0 H (11.0-15.0) % Plt Count 178 (150-400) 10^3/uL Neut % (Auto) 78.2 (35-85) % Lymph % (Auto) 11.7 (10-55) % Hood % (Auto) 9.2 (0-16) % Eos % (Auto) 0.8 (0-5) % Baso % (Auto) 0.1 (0-3) % Neut # (Auto) 11.85 H (1.80-7.00) 10^3/uL Lymph # (Auto) 1.77 (1.00-4.80) 10^3/uL Hood # (Auto) 1.40 H (0.00-0.80) 10^3/uL Eos # (Auto) 0.12 (0.00-0.45) 10^3/uL Baso # (Auto) 0.01 10^3/uL Hemoglobin A1c 9.2 H (4.8-6.2) % Departure - Departure Time of Disposition: 21:44 Disposition: Refer to Observation Condition: Good Clinical Impression: Fever, Leukocytosis, Diabetes - Discharge Information Forms: ED Department Discharge - Problem List & Annotations (1) Leukocytosis SNOMED Code(s): 920846050, 205462440 Code(s): D72.829 - ELEVATED WHITE BLOOD CELL COUNT, UNSPECIFIED Status: Acute Qualifiers: Leukocytosis type: unspecified Qualified Code(s): D72.829 - Elevated white blood cell count, unspecified - My Orders Last 24 Hours: My Active Orders 12/07/16 20:53 CMP [COMPREHENSIVE METABOLIC PN,CMP] [CHEM] Stat CULTURE WOUND + SMEAR [RM] Stat 12/07/16 20:54 CRP [C-REACTIVE PROTEIN] [CHEM] Stat UA W/MICROSCOPIC [URIN] Stat 12/07/16 21:08 UA W/MICROSCOPIC [URIN] Stat 12/07/16 21:10 MICROALBUMIN/CREAT RATIO,URINE [URCHEM] Stat 12/07/16 21:14 CULTURE WOUND [RM] Stat - Assessment/Plan Last 24 Hours: My Active Orders 12/07/16 20:53 CMP [COMPREHENSIVE METABOLIC PN,CMP] [CHEM] Stat CULTURE WOUND + SMEAR [RM] Stat 12/07/16 20:54 CRP [C-REACTIVE PROTEIN] [CHEM] Stat UA W/MICROSCOPIC [URIN] Stat 12/07/16 21:08 UA W/MICROSCOPIC [URIN] Stat 12/07/16 21:10 MICROALBUMIN/CREAT RATIO,URINE [URCHEM] Stat 12/07/16 21:14 CULTURE WOUND [RM] Stat Assessment:: Patient presents to ER C/O nausea, fatigue, visual disturbance for past week. He states feelings of nausea some vomiting undigested food. Patient states he had appointment with Dr. Bowens on Wednesday but is unable to keep appointment. He has come in for evaluation and treatment. states wound on Left Great toe getting worse with oozing of blood. Patient affirms fever 100 range. He affirms is IDDM IDDM Leukocytosis IDDM Dehydration Febrile Stage 2 ulceration Left Great Toe Peripheral Neuropathy Plan: Admit to observation for rehydration. IV antibiotics. Glycemic Control Wound Management and care.
[2016-12-07] MEDS ORDERED: cefTRIAXone 1 GM Vial IVPUSH SCH (22:00)
[2016-12-07] MEDS: Sodium Chloride 0.9% 1,000 ML IV SCH (22:28)
[2016-12-07] MEDS ORDERED: Albuterol/Ipratropium 3.0-0.5 MG/3 ML Neb Soln NEB PRN (23:08)
[2016-12-07] MEDS ORDERED: Acetaminophen/HYDROcodone 325-5 MG Tab PO PRN (23:08)
[2016-12-07] MEDS ORDERED: Albuterol 8 GM Inhaler INH PRN (23:08)
[2016-12-07] MEDS ORDERED: UREA TOP PRN (23:08)
--- NOTE | 2016-12-07 23:39 | PCM.PN ---
- General Info Date of Service: 12/07/16 Functional Status: Reports: Pain Controlled, Urinating Pain Score: 8 - Review of Systems General: Reports: Fever, Weakness, Fatigue, Malaise HEENT: Reports: Other (Hearing Loss) Pulmonary: Reports: Cough, Wheezing. Denies: Shortness of Breath, Sputum, Hemoptysis Cardiovascular: Reports: No Symptoms Gastrointestinal: Reports: Nausea. Denies: Diarrhea, Vomiting Genitourinary: Reports: No Symptoms Musculoskeletal: Reports: Leg Pain (Left LE Cellulitis noted secondary to lesion on Left Great toe.) Skin: Reports: Other (Ulceration Left Great toe) Neurological: Reports: Pre-Existing Deficit Psychiatric: Reports: No Symptoms - Patient Data Vitals - Most Recent: Last Vital Signs Temp 38.5 C H 12/07/16 23:03 Pulse 103 H 12/07/16 23:03 Resp 20 12/07/16 23:03 BP 96/53 L 12/07/16 23:03 Pulse Ox 90 L 12/07/16 23:03 Weight - Most Recent: 154.221 kg Med Orders - Current: Current Medications Ceftriaxone Sodium (Rocephin) 1 gm IVPUSH Q24H [facility] Last Admin: 12/07/16 22:30 Dose: 1 gm Sodium Chloride (Normal Saline) 1,000 mls @ 75 mls/hr IV ASDIRECTED [facility] Last Admin: 12/07/16 22:28 Dose: 75 mls/hr - Exam Quality Assessment: Skin Breakdown General: Alert, Oriented, Cooperative, No Acute Distress HEENT: Pupils Equal, Pupils Reactive, EOMI Neck: Supple, Trachea Midline Lungs: Clear to Auscultation, Normal Respiratory Effort Cardiovascular: Regular Rate, Regular Rhythm GI/Abdominal Exam: Soft, Distended (Male) Exam: Deferred Back Exam: Normal Inspection, Paraspinal Tenderness, Other (Chronic Back Patience) Extremities: Normal Range of Motion (Tenderness noted LLE with significant redness and swelling. Perimeter outlined and calf measurement noted.), Pedal Edema, Slow Capillary Refill, Leg Pain. No: Rizwan's Sign Peripheral Pulses: 2+: Popliteal (L), Popliteal (R), Dorsalis Pedis (L), Dorsalis Pedis (R) Skin: Warm, Dry, Other (Ulceration Left Great Toe) Wound/Incisions: Dressing Dry and Intact (Hep Lick) Neurological: No New Focal Deficit, Normal Speech, Strength Equal Bilateral Psy/Mental Status: Alert, Normal Affect, Normal Mood - Problem List & Annotations (1) Leukocytosis SNOMED Code(s): 380707174, 584286312 Code(s): D72.829 - ELEVATED WHITE BLOOD CELL COUNT, UNSPECIFIED Status: Acute Current Visit: Yes Qualifiers: Qualified Code(s): D72.829 - Elevated white blood cell count, unspecified (2) Cellulitis and abscess of lower extremity SNOMED Code(s): 767690826 Code(s): L03.119 - CELLULITIS OF UNSPECIFIED PART OF LIMB; L02.419 - CUTANEOUS ABSCESS OF LIMB, UNSPECIFIED Status: Acute Current Visit: Yes (3) Cellulitis SNOMED Code(s): 235262081 Code(s): L03.90 - CELLULITIS, UNSPECIFIED Status: Acute Current Visit: Yes Qualifiers: Qualified Code(s): L03.116 - Cellulitis of left lower limb - Problem List Review Problem List Initiated/Reviewed/Updated: Yes - My Orders Last 24 Hours: My Active Orders 12/07/16 20:00 Gabapentin 900 mg PO BEDTIME Insulin Aspart [NovoLOG] 60 unit SUBCUT QPM Insulin Glargine,Hum.Rec.Anlog [Lantus Solostar] 70 unit SQ QPM 12/07/16 23:08 Acetaminophen/HYDROcodone [[place] 325-5 MG] 1 - 2 tab PO Q6H PRN Albuterol Sulfate [Proair Respiclick] 90 mcg IH Q6H PRN Albuterol/Ipratropium [DuoNeb 3.0-0.5 MG/3 ML] 1 unit NEB Q6HR PRN Urea [Urea 20% Crm] 1 gm TOP DAILY PRN 12/07/16 23:20 Patient Status Manage Transfer [TRANSFER] Routine 12/08/16 07:30 Omeprazole [Omeprazole] 20 mg PO BIDAC 12/08/16 08:00 Areds 2 1 tab PO DAILY Aspirin [Halfprin] 81 mg PO DAILY Budesonide/Formoterol 2 puff IH BID Cholecalciferol (Vitamin D3) [Vitamin D3] 1,000 unit PO BID Clopidogrel [Plavix] 75 mg PO DAILY DULoxetine HCl [Duloxetine HCl] 60 mg PO DAILY Gabapentin [Neurontin] 600 mg PO QAM Glucosamine HCl [Glucosamine] 1,500 mg PO DAILY Insulin Aspart 70 unit SUBCUT QAM Insulin Glarg,Human.Rec.Analog 75 unit SQ QAM Lisinopril [Prinivil] 40 mg PO DAILY Magnesium Oxide [Magnesium Oxide] 420 mg PO BID Multivitamins [Tab-A-Hector] 1 tab PO DAILY 12/08/16 20:00 Metoprolol Succinate [Metoprolol Succinate] 100 mg PO QPM - Assessment Assessment:: Cellulitis LLE IDDM Renal Insufficiency Leukocytosis Obesity COPD - Plan Plan:: Admit for Close Observation IV Rocephin and IVF hydration Pain Control Hold Metformin and NSAIDs
--- NOTE | 2016-12-07 23:55 | PCM.HP ---
H&P History of Present Illness - General Date of Service: 12/07/16 Admit Problem/Dx: Admission Diagnosis/Problem Admission Diagnosis/Problem Cellulitis and abscess of left lower extremity Source of Information: Patient History Limitations: Reports: No Limitations - History of Present Illness Onset of Symptoms: Reports: Gradual Symptom Onset Date: 12/01/16 Symptom Onset Time: 08:00 Duration of Symptoms: Reports: Week(s):, Getting Worse Location: Reports: Lower Extremity, Left, Generalized Quality: Reports: Burning, Pressure, Throbbing Severity: Mild Improves with: Reports: None Worsens with: Reports: None Associated Symptoms: Reports: Loss of Appetite, Malaise, Nausea/Vomiting, Weakness Left Leg Pain Score (Numeric/FACES): 0 ("I can't feel my feet.") - Related Data Allergies/Adverse Reactions: Allergies Allergy/AdvReac Type Severity Reaction Status Date / Time vancomycin Allergy Intermediate Rash Verified 12/07/16 20:52 Home Medications: Home Meds Albuterol Sulfate [Proair Respiclick] 90 mcg IH Q6H PRN 04/08/15 [History] Aspirin [Adult Low Dose Aspirin EC] 81 mg PO DAILY 04/08/15 [History] Budesonide/Formoterol [Symbicort 160-4.5 MCG] 2 puff IH BID 04/08/15 [History] Cholecalciferol (Vitamin D3) [Vitamin D3] 1,000 unit PO BID 04/08/15 [History] Clopidogrel Bisulfate [Clopidogrel] 75 mg PO DAILY 04/08/15 [History] Furosemide 80 mg PO DAILY 04/08/15 [History] Gabapentin [Neurontin] 600 mg PO QAM 04/08/15 [History] Ibuprofen 1 tab PO TID PRN 04/08/15 [History] Insulin Aspart [NovoLOG] 70 unit SUBCUT QAM 04/08/15 [History] Insulin Glarg,Human.Rec.Analog [Lantus] 75 unit SQ QAM 04/08/15 [History] Ipratropium/Albuterol Sulfate [Iprat-Albut 0.5-3(2.5) mg/3 ml] 1 unit NEB Q6HR PRN 04/08/15 [History] Lisinopril 40 mg PO DAILY 04/08/15 [History] Magnesium Oxide 420 mg PO BID 04/08/15 [History] Multivitamin [Multi-Vitamin Daily] 1 tab PO DAILY 04/08/15 [History] Omeprazole 20 mg PO BIDAC 04/08/15 [History] Urea [Urea 20% Crm] 1 gm TOP DAILY PRN 04/08/15 [History] metFORMIN HCl [Metformin HCl] 1,000 mg PO BID 04/08/15 [History] Gabapentin [Neurontin] 900 mg PO BEDTIME 04/14/15 [History] Budesonide [Pulmicort Flexhaler] 2 puff IH BID 03/12/16 [History] Hydrocodone/Acetaminophen [Hydrocodon-Acetaminophen 5-325] 1 - 2 tab PO Q6H PRN 03/12/16 [History] Insulin Aspart [NovoLOG] 60 unit SUBCUT QPM 03/12/16 [History] Insulin Glargine,Hum.Rec.Anlog [Lantus Solostar] 70 unit SQ QPM 03/12/16 [ History] Areds 2 1 tab PO DAILY 09/17/16 [History] Glucosamine HCl [Glucosamine] 1,500 mg PO DAILY 09/17/16 [History] Metoprolol Succinate 100 mg PO QPM 09/17/16 [History] DULoxetine HCl [Duloxetine HCl] 60 mg PO DAILY 12/07/16 [History] Past Medical History HEENT History: Reports: Other (See Below) Other HEENT History: says he has a couple bad teeth Cardiovascular History: Reports: High Cholesterol, Hypertension, Stents Respiratory History: Reports: COPD Other Respiratory History: pulm scraping in 2012 Other Genitourinary History: vasEctomy Other Musculoskeletal History: needs bilateral knee replacements Neurological History: Reports: Neuropathy, Peripheral Psychiatric History: Reports: Depression Endocrine/Metabolic History: Reports: Diabetes, Type II, Obesity/BMI 30+ Dermatologic History: Reports: Cellulitis Other Dermatologic History: ulcer to right leg - Infectious Disease History Infectious Disease History: Reports: None, Other (See Below) (Allergic to Vancomycin) - Past Surgical History HEENT Surgical History: Reports: None Cardiovascular Surgical History: Reports: Coronary Artery Stent Respiratory Surgical History: Reports: Other (See Below) GI Surgical History: Reports: Cholecystectomy Male Surgical History: Reports: Vasectomy Neurological Surgical History: Reports: None Musculoskeletal Surgical History: Reports: Knee Replacement Social & Family History - Family History Family Medical History: Noncontributory - Tobacco Use Smoking Status *Q: Former Smoker Years of Tobacco use: 40 Used Tobacco, but Quit: Yes Month Tobacco Last Used: 10 YEARS AGO - Recreational Drug Use Recreational Drug Use: No - Living Situation & Occupation Living situation: Reports: , with Family Occupation: Disabled H&P Review of Systems - Review of Systems: Review Of Systems: See Below General: Reports: Fever, Chills, Malaise, Weakness, Fatigue, Decreased Appetite HEENT: Reports: Other (Hearing Loss) Pulmonary: Reports: Shortness of Breath, Wheezing. Denies: Cough, Hemoptysis Cardiovascular: Reports: No Symptoms Gastrointestinal: Reports: Nausea. Denies: Vomiting Genitourinary: Reports: No Symptoms Musculoskeletal: Reports: Back Pain, Leg Pain, Joint Swelling Skin: Reports: Wound (Stage 2 ulceration Left great toe) Psychiatric: Reports: No Symptoms, Depression Neurological: Reports: Paresthesia, Pre-Existing Deficit Hematologic/Lymphatic: Reports: No Symptoms Immunologic: Reports: No Symptoms Exam - Exam Exam: See Below - Vital Signs Vital Signs: Last Vital Signs Temp 38.5 C H 12/07/16 23:03 Pulse 103 H 12/07/16 23:03 Resp 20 12/07/16 23:03 BP 96/53 L 12/07/16 23:03 Pulse Ox 90 L 12/07/16 23:03 Weight: 154.221 kg - Exam Quality Assessment: Skin Breakdown General: Alert, Oriented HEENT: Conjunctiva Clear, EACs Clear, EOMI. No: Hearing Intact Neck: Supple, Trachea Midline Lungs: Clear to Auscultation Cardiovascular: Regular Rate, Regular Rhythm GI/Abdominal Exam: Soft (Male) Exam: Deferred Rectal (Males) Exam: Deferred Back Exam: Normal Inspection, Paraspinal Tenderness, Vertebral Tenderness ( Chronic Back Pain) Extremities: Pedal Edema, Slow Capillary Refill, Leg Pain, Mottled, Redness Peripheral Pulses: 1+: Radial (L), Radial (R), Dorsalis Pedis (L), Dorsalis Pedis (R) Skin: Warm, Dry, Wound, Decubitis (Stage 2 Left Great Toe) Neurological: Cranial Nerves Intact, Strength Equal Bilateral, Normal Speech, Sensation Intact Neuro Extensive - Mental Status: Alert, Oriented x3, Normal Mood/Affect, Normal Cognition, Memory Intact (Hard of hearing) Neuro Extensive - Motor, Sensory, Reflexes: CN II-XII Intact, Normal Gait, Normal Reflexes Psychiatric: Alert, Normal Affect, Normal Mood - Patient Data Result Diagrams: 12/07/16 21:20 12/07/16 21:20 *Q Meaningful Use (ADM) - VTE *Q VTE Criteria *Q: - Stroke *Q Stroke Criteria *Q: - AMI *Q AMI Criteria *Q: - Problem List (1) Leukocytosis SNOMED Code(s): 740355667, 601115914 ICD Code: D72.829 - ELEVATED WHITE BLOOD CELL COUNT, UNSPECIFIED Status: Acute Current Visit: Yes Qualifiers: Qualified Code(s): D72.829 - Elevated white blood cell count, unspecified (2) Cellulitis and abscess of lower extremity SNOMED Code(s): 165670703 ICD Code: L03.119 - CELLULITIS OF UNSPECIFIED PART OF LIMB; L02.419 - CUTANEOUS ABSCESS OF LIMB, UNSPECIFIED Status: Acute Current Visit: Yes (3) Cellulitis SNOMED Code(s): 067307620 ICD Code: L03.90 - CELLULITIS, UNSPECIFIED Status: Acute Current Visit: Yes Qualifiers: Qualified Code(s): L03.116 - Cellulitis of left lower limb Problem List Initiated/Reviewed/Updated: Yes Orders Last 24hrs: Active Orders 24 hr Category Date Time Status Acetaminophen [Tylenol] Med 12/07/16 23:27 Ordered 650 mg PO Q4H PRN Acetaminophen/HYDROcodone [Ceylon 325-5 MG] Med 12/07/16 23:08 Ordered 1 - 2 tab PO Q6H PRN Albuterol Sulfate [Proair Respiclick] Med 12/07/16 23:08 Ordered 90 mcg IH Q6H PRN Albuterol/Ipratropium [DuoNeb 3.0-0.5 MG/3 ML] Med 12/07/16 23:08 Ordered 1 unit NEB Q6HR PRN Areds 2 Med 12/08/16 08:00 Ordered 1 tab PO DAILY Aspirin [Halfprin] Med 12/08/16 08:00 Ordered 81 mg PO DAILY Budesonide/Formoterol Med 12/08/16 08:00 Ordered 2 puff IH BID Cholecalciferol (Vitamin D3) [Vitamin D3] Med 12/08/16 08:00 Ordered 1,000 unit PO BID Clopidogrel [Plavix] Med 12/08/16 08:00 Ordered 75 mg PO DAILY DULoxetine HCl [Duloxetine HCl] Med 12/08/16 08:00 Ordered 60 mg PO DAILY Gabapentin Med 12/07/16 20:00 Ordered 900 mg PO BEDTIME Gabapentin [Neurontin] Med 12/08/16 08:00 Ordered 600 mg PO QAM Glucosamine HCl [Glucosamine] Med 12/08/16 08:00 Ordered 1,500 mg PO DAILY Insulin Aspart Med 12/08/16 08:00 Ordered 70 unit SUBCUT QAM Insulin Aspart [NovoLOG] Med 12/07/16 20:00 Ordered 60 unit SUBCUT QPM Insulin Glarg,Human.Rec.Analog Med 12/08/16 08:00 Ordered 75 unit SQ QAM Insulin Glargine,Hum.Rec.Anlog [Lantus Solostar] Med 12/07/16 20:00 Ordered 70 unit SQ QPM Lisinopril [Prinivil] Med 12/08/16 08:00 Ordered 40 mg PO DAILY Magnesium Oxide [Magnesium Oxide] Med 12/08/16 08:00 Ordered 420 mg PO BID Metoprolol Succinate [Metoprolol Succinate] Med 12/08/16 20:00 Ordered 100 mg PO QPM Multivitamins [Tab-A-Hector] Med 12/08/16 08:00 Ordered 1 tab PO DAILY Omeprazole [Omeprazole] Med 12/08/16 07:30 Ordered 20 mg PO BIDAC Urea [Urea 20% Crm] Med 12/07/16 23:08 Ordered 1 gm TOP DAILY PRN Medication Orders Hydrocodone Bitart/Acetaminophen (Ceylon 325-5 Mg) 1 - 2 tab PO Q6H PRN PRN Reason: Pain Albuterol/Ipratropium (Duoneb 3.0-0.5 Mg/3 Ml) ml NEB Q6HR PRN PRN Reason: Dyspnea Ceftriaxone Sodium (Rocephin) 1 gm IVPUSH Q24H [facility] Last Admin: 12/07/16 22:30 Dose: 1 gm Sodium Chloride (Normal Saline) 1,000 mls @ 75 mls/hr IV ASDIRECTED [facility] Last Admin: 12/07/16 22:28 Dose: 75 mls/hr Non-Formulary Medication (Albuterol Sulfate [Proair Respiclick]) 90 mcg IH Q6H PRN PRN Reason: Dyspnea Non-Formulary Medication (Areds 2) 1 tab PO DAILY [place] Non-Formulary Medication (Budesonide/Formoterol) 2 puff IH BID [place] Non-Formulary Medication (Cholecalciferol (Vitamin D3) [Vitamin D3]) 1,000 unit PO BID [place] Non-Formulary Medication (Duloxetine Hcl [Duloxetine Hcl]) 60 mg PO DAILY [place] Non-Formulary Medication (Gabapentin) 900 mg PO BEDTIME [place] Non-Formulary Medication (Glucosamine Hcl [Glucosamine]) 1,500 mg PO DAILY [place] Non-Formulary Medication (Insulin Aspart) 70 unit SUBCUT QAM [place] Non-Formulary Medication (Insulin Glarg,Human.Rec.Analog) 75 unit SQ QAM [place] Non-Formulary Medication (Insulin Glargine,Hum.Rec.Anlog [Lantus Solostar]) 70 unit SQ QPM [place] Non-Formulary Medication (Magnesium Oxide [Magnesium Oxide]) 420 mg PO BID [place] Non-Formulary Medication (Metoprolol Succinate [Metoprolol Succinate]) 100 mg PO QPM [place] Non-Formulary Medication (Omeprazole [Omeprazole]) 20 mg PO BIDAC [place] Non-Formulary Medication (Urea [Urea 20% Crm]) 1 gm TOP DAILY PRN PRN Reason: Wound Care Assessment/Plan Comment:: Admit for -Please use for ER admssion H and P Close Observation IV Rocephin and IVF hydration Pain Control Hold Metformin and NSAIDs
[2016-12-07] MEDS ORDERED: Ondansetron 4 MG/2 ML SDV IV PRN (23:56)
[2016-12-07] MEDS ORDERED: Sodium Chloride 0.9% 10 ML Syringe FLUSH PRN (23:56)
[2016-12-07] MEDS ORDERED: Ondansetron 4 MG Tab.DIS PO PRN (23:56)
[2016-12-08] MEDS ORDERED: Acetaminophen 325 MG Tab ONE (00:26)
[2016-12-08] MEDS ORDERED: Insulin Aspart 100 Units/ML 3 ML Pen SUBCUT SCH ×2 (00:30→08:00)
[2016-12-08] MEDS ORDERED: Insulin Detemir 100 Units/ML 3 ML Pen SUBCUT SCH ×2 (00:30→08:00)
[2016-12-08] MEDS: Gabapentin 300 MG Cap PO SCH ×3 (00:50→23:55)
[2016-12-08] MEDS ORDERED: Gabapentin 300 MG Cap ONE (01:00)
[2016-12-08] MEDS: Acetaminophen 325 MG Tab PO PRN ×2 (04:30→08:41)
[2016-12-08] MEDS: Sodium Chloride 0.9% 1,000 ML IV SCH ×2 (06:50→14:57)
[2016-12-08] MEDS ORDERED: Pantoprazole 40 MG Tab.CR PO SCH (07:30)
[2016-12-08] MEDS ORDERED: GLUCOSAMINE HCL 1500 MG PO SCH (08:00)
[2016-12-08] MEDS ORDERED: Formoterol/Mometasone 200-5 MCG 8.8 GM Inhaler IH SCH (08:00)
[2016-12-08] MEDS: Insulin Detemir 100 Units/ML 3 ML Pen SUBCUT SCH ×2 (08:23→19:31)
[2016-12-08] MEDS: Aspirin 81 MG Tab.EC PO SCH (08:25)
[2016-12-08] MEDS: Clopidogrel 75 MG Tab PO SCH (08:25)
[2016-12-08] MEDS: Beta-Carotene (Vitamin A) w/Vitamin C & E plus Minerals Tab PO SCH (08:25)
[2016-12-08] MEDS: Multivitamin Tab PO SCH (08:25)
[2016-12-08] MEDS: Cholecalciferol (Vitamin D3) 1,000 Unit Tab PO SCH ×2 (08:25→19:26)
[2016-12-08] MEDS: Lisinopril 20 MG Tab PO SCH (08:25)
[2016-12-08] MEDS: DULoxetine 30 MG Cap PO SCH (08:26)
[2016-12-08] MEDS: cefTRIAXone 1 GM Vial IVPUSH SCH (08:31)
[2016-12-08] MEDS: Enoxaparin 30 MG/0.3 ML Syringe SUBCUT SCH (08:31)
--- NOTE | 2016-12-08 11:12 | PN ---
DATE: 12/08/2016 S: Scott Shelton Junior is in with [id number] cellulitis of, I believe, his left lower extremity. He is in severe renal insufficiency. O: GENERAL: On examination, the cellulitis looks like it has improved since yesterday according to the marker put on his leg, says he feels fine. NECK: Supple. CHEST: Clear. CARDIAC: Regular. EXTREMITIES: Has bilateral +1 edema, which he has had for ever. ASSESSMENT: CELLULITIS, RENAL INSUFFICIENCY, HYPERKALEMIA ALL CORRECTING. MARGARETH/KEDAR /[id number]
[2016-12-08] MEDS: Insulin Aspart 100 Units/ML 3 ML Pen SUBCUT SCH ×5 (12:07→20:40)
[2016-12-08] MEDS: Pantoprazole 40 MG Tab.CR PO SCH (16:32)
[2016-12-08] MEDS: Metoprolol Succinate 100 MG Tab.ER PO SCH (19:26)
[2016-12-08] MEDS: Formoterol/Mometasone 200-5 MCG 8.8 GM Inhaler IH SCH (20:39)
[2016-12-09] MEDS: Sodium Chloride 0.9% 1,000 ML IV SCH ×2 (02:27→22:34)
[2016-12-09] MEDS: Acetaminophen 325 MG Tab PO PRN ×3 (05:54→20:54)
[2016-12-09] MEDS: Pantoprazole 40 MG Tab.CR PO SCH ×3 (06:34→16:34)
[2016-12-09] MEDS: Insulin Detemir 100 Units/ML 3 ML Pen SUBCUT SCH ×2 (07:51→20:51)
[2016-12-09] MEDS: Insulin Aspart 100 Units/ML 3 ML Pen SUBCUT SCH ×8 (07:52→20:52)
[2016-12-09] MEDS: DULoxetine 30 MG Cap PO SCH (07:56)
[2016-12-09] MEDS: Gabapentin 300 MG Cap PO SCH ×2 (07:56→20:07)
[2016-12-09] MEDS: Multivitamin Tab PO SCH (07:56)
[2016-12-09] MEDS: Beta-Carotene (Vitamin A) w/Vitamin C & E plus Minerals Tab PO SCH (07:56)
[2016-12-09] MEDS: Aspirin 81 MG Tab.EC PO SCH (07:56)
[2016-12-09] MEDS: Clopidogrel 75 MG Tab PO SCH (07:56)
[2016-12-09] MEDS: Cholecalciferol (Vitamin D3) 1,000 Unit Tab PO SCH ×2 (07:56→20:13)
[2016-12-09] MEDS: Lisinopril 20 MG Tab PO SCH (07:57)
[2016-12-09] MEDS: Enoxaparin 30 MG/0.3 ML Syringe SUBCUT SCH (07:57)
[2016-12-09] MEDS: cefTRIAXone 1 GM Vial IVPUSH SCH ×2 (07:57→08:02)
[2016-12-09] MEDS: Formoterol/Mometasone 200-5 MCG 8.8 GM Inhaler IH SCH ×2 (08:05→20:55)
--- NOTE | 2016-12-09 09:22 | PN ---
DATE: 12/09/2016 S: Scott Shelton is in with cellulitis of left lower extremity. He says he feels better. O: On examination, there is still fair amount of edema and pain, but the erythema is down. I am pending his renal functions this morning. ASSESSMENT: CELLULITIS OF LEFT LOWER EXTREMITY, DIABETES, AND RENAL INSUFFICIENCY. P: Continue present therapy. MARGARETH/KEDAR /[id number]
[2016-12-09] MEDS: Sulfamethoxazole/Trimethoprim 800-160 MG Tab PO SCH ×2 (12:04→20:07)
[2016-12-09] MEDS: Metoprolol Succinate 100 MG Tab.ER PO SCH (20:07)
[2016-12-10] MEDS: Acetaminophen 325 MG Tab PO PRN ×2 (04:38→20:06)
[2016-12-10] MEDS: Pantoprazole 40 MG Tab.CR PO SCH ×2 (06:44→17:30)
[2016-12-10] MEDS: Clopidogrel 75 MG Tab PO SCH (08:08)
[2016-12-10] MEDS: Cholecalciferol (Vitamin D3) 1,000 Unit Tab PO SCH ×2 (08:08→20:08)
[2016-12-10] MEDS: DULoxetine 30 MG Cap PO SCH (08:08)
[2016-12-10] MEDS: Sulfamethoxazole/Trimethoprim 800-160 MG Tab PO SCH ×2 (08:08→20:08)
[2016-12-10] MEDS: Multivitamin Tab PO SCH (08:08)
[2016-12-10] MEDS: Beta-Carotene (Vitamin A) w/Vitamin C & E plus Minerals Tab PO SCH (08:09)
[2016-12-10] MEDS: Aspirin 81 MG Tab.EC PO SCH (08:09)
[2016-12-10] MEDS: Lisinopril 20 MG Tab PO SCH (08:09)
[2016-12-10] MEDS: Gabapentin 300 MG Cap PO SCH ×2 (08:09→20:07)
[2016-12-10] MEDS: cefTRIAXone 1 GM Vial IVPUSH SCH (08:10)
[2016-12-10] MEDS: Insulin Detemir 100 Units/ML 3 ML Pen SUBCUT SCH ×2 (08:11→20:16)
[2016-12-10] MEDS: Insulin Aspart 100 Units/ML 3 ML Pen SUBCUT SCH ×7 (08:13→20:17)
[2016-12-10] MEDS: Enoxaparin 30 MG/0.3 ML Syringe SUBCUT SCH (08:13)
[2016-12-10] MEDS: Formoterol/Mometasone 200-5 MCG 8.8 GM Inhaler IH SCH ×2 (08:15→20:16)
--- NOTE | 2016-12-10 14:37 | PN ---
DATE: 12/10/2016 S: Scott Shelton comes in with moderate severe cellulitis, acute renal insufficiency with Staph growing between his toe with cellulitis in left lower extremity. O: Examination of toe looks better. Cellulitis is better. LABORATORY DATA: Creatinine dropped down to 1.4. C-reactive protein dropped down nicely too. ASSESSMENT: MODERATE SEVERE CELLULITIS, ACUTE RENAL INSUFFICIENCY. P: Continue present therapy. MARGARETH/KEDAR /[id number]
[2016-12-10] MEDS: Sodium Chloride 0.9% 1,000 ML IV SCH (17:32)
[2016-12-10] MEDS: Metoprolol Succinate 100 MG Tab.ER PO SCH (20:08)
[2016-12-11] MEDS: Pantoprazole 40 MG Tab.CR PO SCH (06:34)
[2016-12-11 07:33] LABS: CHLORIDE,CL 105 mEq/L (98-106)
[2016-12-11 07:36] LABS: SODIUM,NA 139 mEq/L (136-145)
[2016-12-11] MEDS: Enoxaparin 30 MG/0.3 ML Syringe SUBCUT SCH (07:40)
[2016-12-11] MEDS: cefTRIAXone 1 GM Vial IVPUSH SCH (07:40)
[2016-12-11] MEDS: Insulin Aspart 100 Units/ML 3 ML Pen SUBCUT SCH ×4 (07:43→11:58)
[2016-12-11] MEDS: Cholecalciferol (Vitamin D3) 1,000 Unit Tab PO SCH (07:45)
[2016-12-11] MEDS: Beta-Carotene (Vitamin A) w/Vitamin C & E plus Minerals Tab PO SCH (07:46)
[2016-12-11] MEDS: DULoxetine 30 MG Cap PO SCH (07:46)
[2016-12-11] MEDS: Clopidogrel 75 MG Tab PO SCH (07:47)
[2016-12-11] MEDS: Gabapentin 300 MG Cap PO SCH (07:47)
[2016-12-11] MEDS: Aspirin 81 MG Tab.EC PO SCH (07:47)
[2016-12-11] MEDS: Sulfamethoxazole/Trimethoprim 800-160 MG Tab PO SCH (07:48)
[2016-12-11] MEDS: Lisinopril 20 MG Tab PO SCH (07:48)
[2016-12-11] MEDS: Multivitamin Tab PO SCH (07:48)
[2016-12-11] MEDS: Insulin Detemir 100 Units/ML 3 ML Pen SUBCUT SCH (07:51)
[2016-12-11] MEDS: Formoterol/Mometasone 200-5 MCG 8.8 GM Inhaler IH SCH (08:45)
[2016-12-11 12:06] VITALS: BP 152/82
--- NOTE | 2016-12-14 07:14 | DISCH ---
HOSPITAL COURSE: Scott Shelton came into the hospital with moderate severe left lower extremity cellulitis, severe renal insufficiency with a creatinine of 5.1. We start him on normal saline, IV antibiotics, added Septra orally. At the time of discharge, creatinine had returned to 1. His potassium on admission was 5.6, prior to discharge 5.3 it had stayed normal. C-reactive protein was as high as 50, prior to discharge did drop down to 10.8. Urinalysis looked good. Blood sugar is a little bit elevated, but not bad for him. CBC, white count was 15 on admission, at discharge 8.1. Physical therapy was brought in for debridement of a little leg ulcer. DISPOSITION: The patient now discharged home with Home Health. DISCHARGE MEDICATIONS: Home medications plus Septra DS b.i.d. for 10 days. DISCHARGE DIAGNOSIS: 1. CELLULITIS, LEFT LOWER EXTREMITY. 2. ACUTE RENAL FAILURE. 3. DIABETES MELLITUS. 4. HYPERTENSION. 5. HYPERLIPIDEMIA. MARGARETH/KEDAR /[id number]
== END 2016-12-11 14:30 | disposition home health service (06) | DRG 603 ==
LOC: CC.ED 20:47 → UNDOADMIN 23:00 → CC.MS 23:00 → UNDOADMIN 23:56 → CC.MS 23:56 → UNDODISIN 12-11 14:30
PROVIDERS: ADMIT Nurse Practitioner; ATTEND General Practice
DX: E11.621 Type 2 diabetes mellitus with foot ulcer (principal); L97.521 Non-pressure chronic ulcer of other part of left foot limited to breakdown of skin; E11.42 Type 2 diabetes mellitus with diabetic polyneuropathy; E86.0 Dehydration; L03.116 Cellulitis of left lower limb; N17.9 Acute kidney failure, unspecified; L02.612 Cutaneous abscess of left foot; E11.628 Type 2 diabetes mellitus with other skin complications; B95.62 Methicillin resistant Staphylococcus aureus infection as the cause of diseases classified elsewhere; I10 Essential (primary) hypertension; E78.5 Hyperlipidemia, unspecified; E66.9 Obesity, unspecified; D72.829 Elevated white blood cell count, unspecified; J44.9 Chronic obstructive pulmonary disease, unspecified; E87.5 Hyperkalemia; Z87.891 Personal history of nicotine dependence; Z79.4 Long term (current) use of insulin; Z79.84 Long term (current) use of oral hypoglycemic drugs; Z79.82 Long term (current) use of aspirin; Z79.51 Long term (current) use of inhaled steroids; Z79.899 Other long term (current) drug therapy
CPT/HCPCS: 36415; 80053; 81001; 82043; 83036; 85025; 86140; 87070; 87077; 87186; 96361 ×2; 96374; 99284; A9270; G0378; J0696; J7030; 80048; 82962; 83735; 84132; 97161-GP; 97597-GP; J1650; J1815-GY

== ENCOUNTER 2018-06-05 02:39 | Emergency (ER) | payer MEDICARE, OTHER ==
[2018-06-05] MEDS ORDERED: Acetaminophen/HYDROcodone 325-5 MG Tab PO ONE (02:40)
[2018-06-05 02:58] VITALS: BP 143/69
--- NOTE | 2018-06-05 03:08 | EDM.PDOC ---
ED HPI GENERAL MEDICAL PROBLEM - General Chief Complaint: General Stated Complaint: abd pain Time Seen by Provider: 06/05/18 02:55 Source of Information: Reports: Patient, Family History Limitations: Reports: No Limitations - History of Present Illness INITIAL COMMENTS - FREE TEXT/NARRATIVE: in with c/o left testicle pain into his left flank x 2 days, no fever or chills , no nvdc, no uti sx, does c/o a strong urine smell, no testicle swelling, denies any other sx Onset Date: 06/02/18 Location: Reports: Radiates to (the left flank), Other (left testicle) Quality: Reports: Ache Severity: Moderate Improves with: Reports: None Worsens with: Reports: None Associated Symptoms: Reports: No Other Symptoms Treatments BUSINESS ADVISOR: Reports: Other (see below) (none) Groin Pain Score (Numeric/FACES): 4 - Related Data Allergies Allergy/AdvReac Type Severity Reaction Status Date / Time vancomycin Allergy Intermediate Rash Verified 06/05/18 03:09 Home Meds: Home Meds Albuterol Sulfate [Proair Respiclick] 90 mcg IH Q6H PRN 04/08/15 [History] Aspirin [Adult Low Dose Aspirin EC] 81 mg PO DAILY 04/08/15 [History] Budesonide/Formoterol [Symbicort 160-4.5 MCG] 2 puff IH BID 04/08/15 [History] Cholecalciferol (Vitamin D3) [Vitamin D3] 1,000 unit PO BID 04/08/15 [History] Clopidogrel Bisulfate [Clopidogrel] 75 mg PO DAILY 04/08/15 [History] Furosemide 80 mg PO DAILY 04/08/15 [History] Gabapentin [Neurontin] 600 mg PO QAM 04/08/15 [History] Ibuprofen 1 tab PO TID PRN 04/08/15 [History] Insulin Aspart [NovoLOG] 70 unit SUBCUT QAM 04/08/15 [History] Insulin Glarg,Human.Rec.Analog [Lantus] 75 unit SQ QAM 04/08/15 [History] Ipratropium/Albuterol Sulfate [Iprat-Albut 0.5-3(2.5) mg/3 ml] 1 unit NEB Q6HR PRN 04/08/15 [History] Lisinopril 40 mg PO DAILY 04/08/15 [History] Magnesium Oxide 420 mg PO BID 04/08/15 [History] Multivitamin [Multi-Vitamin Daily] 1 tab PO DAILY 04/08/15 [History] Omeprazole 20 mg PO BIDAC 04/08/15 [History] Urea [Urea 20% Crm] 1 gm TOP DAILY PRN 04/08/15 [History] metFORMIN HCl [Metformin HCl] 1,000 mg PO BID 04/08/15 [History] Gabapentin [Neurontin] 900 mg PO BEDTIME 04/14/15 [History] Budesonide [Pulmicort Flexhaler] 2 puff IH BID 03/12/16 [History] Hydrocodone/Acetaminophen [Hydrocodon-Acetaminophen 5-325] 1 - 2 tab PO Q6H PRN 03/12/16 [History] Insulin Aspart [NovoLOG] 60 unit SUBCUT QPM 03/12/16 [History] Insulin Glargine,Hum.Rec.Anlog [Lantus Solostar] 70 unit SQ QPM 03/12/16 [ History] Areds 2 1 tab PO DAILY 09/17/16 [History] Glucosamine HCl [Glucosamine] 1,500 mg PO DAILY 09/17/16 [History] Metoprolol Succinate 100 mg PO QPM 09/17/16 [History] DULoxetine HCl [Duloxetine HCl] 60 mg PO DAILY 12/07/16 [History] Past Medical History HEENT History: Reports: Other (See Below) Other HEENT History: says he has a couple bad teeth Cardiovascular History: Reports: High Cholesterol, Hypertension, Stents Respiratory History: Reports: COPD Other Respiratory History: pulm scraping in 2012 Other Genitourinary History: vasEctomy Other Musculoskeletal History: needs bilateral knee replacements Neurological History: Reports: Neuropathy, Peripheral Psychiatric History: Reports: Depression Endocrine/Metabolic History: Reports: Diabetes, Type II, Obesity/BMI 30+ Dermatologic History: Reports: Cellulitis Other Dermatologic History: ulcer to right leg - Infectious Disease History Infectious Disease History: Reports: MRSA, Other (See Below) - Past Surgical History HEENT Surgical History: Reports: None Cardiovascular Surgical History: Reports: Coronary Artery Stent Respiratory Surgical History: Reports: Other (See Below) GI Surgical History: Reports: Cholecystectomy Male Surgical History: Reports: Vasectomy Neurological Surgical History: Reports: None Musculoskeletal Surgical History: Reports: Knee Replacement Social & Family History - Family History Family Medical History: Noncontributory - Tobacco Use Smoking Status *Q: Former Smoker Years of Tobacco use: 30 Used Tobacco, but Quit: Yes Month/Year Tobacco Last Used: 2001 - Caffeine Use Caffeine Use: Reports: Tea - Living Situation & Occupation Living situation: Reports: , with Family Occupation: Disabled ED ROS GENERAL - Review of Systems Review Of Systems: See Below Constitutional: Reports: No Symptoms. Denies: Fever, Chills HEENT: Reports: No Symptoms Respiratory: Reports: No Symptoms Cardiovascular: Reports: No Symptoms Endocrine: Reports: No Symptoms GI/Abdominal: Reports: No Symptoms : Reports: Urgency, Other (strong urine smell, left flank pain) Musculoskeletal: Reports: No Symptoms Skin: Reports: No Symptoms Neurological: Reports: No Symptoms Psychiatric: Reports: No Symptoms Hematologic/Lymphatic: Reports: No Symptoms Immunologic: Reports: No Symptoms ED EXAM, GENERAL - Physical Exam Exam: See Below Exam Limited By: No Limitations General Appearance: Alert, WD/WN, No Apparent Distress Ears: Normal External Exam. No: Hearing Grossly Normal (very hard of hearing) Nose: Normal Inspection Throat/Mouth: Normal Inspection, Normal Lips, Normal Voice, No Airway Compromise Head: Atraumatic, Normocephalic Neck: Normal Inspection, Supple, Non-Tender, Full Range of Motion Respiratory/Chest: No Respiratory Distress, Lungs Clear, Normal Breath Sounds Cardiovascular: Normal Peripheral Pulses, Regular Rate, Rhythm, No Edema, No Murmur Peripheral Pulses: 2+: Radial (L) GI/Abdominal: Normal Bowel Sounds, Soft, Non-Tender, No Distention (Male) Exam: No Hernia, Normal Inspection, Circumcised. No: Scrotal Swelling , Scrotum Tenderness (L), Scrotum Tenderness (R), Testicular Mass, Testicular Tenderness (L), Testicular Tenderness (R), Urethral Discharge Back Exam: Normal Inspection, Full Range of Motion. No: CVA Tenderness (L), CVA Tenderness (R) Extremities: Normal Inspection, Normal Range of Motion, Non-Tender, No Pedal Edema, Normal Capillary Refill Neurological: Alert, Oriented, Normal Cognition, Normal Gait, No Motor/Sensory Deficits Psychiatric: Normal Affect, Normal Mood Skin Exam: Warm, Dry, Intact, Normal Color Course - Vital Signs Text/Narrative:: ct shows a 6-7mm left UPJ stone with mild hydro, will dc with norco, flomax and toradol, will have him f/u with pcp/urology this week Last Recorded V/S: Last Vital Signs Temp 36.9 C 06/05/18 02:41 Pulse 82 06/05/18 02:41 Resp 18 06/05/18 02:41 BP 143/69 H 06/05/18 02:41 Pulse Ox 96 06/05/18 02:41 - Orders/Labs/Meds Orders: Active Orders 24 hr Category Date Time Status Abdomen Pelvis wo Cont [CT] Stat Exams 06/05/18 03:32 Ordered Labs: Laboratory Tests 06/05/18 06/05/18 06/05/18 Range/Units 03:01 03:01 03:01 WBC 10.9 H (5.0-10.0) 10^3/uL RBC 4.65 (4.50-6.00) 10^6/uL Hgb 13.5 L (14.0-18.0) g/dL Hct 42.3 (40.0-54.0) % MCV 91.0 (82.0-94.0) fL MCH 29.0 (27.0-32.0) pg MCHC 31.9 L (33.0-38.0) g/dL RDW Coeff of Jac 14.1 (11.0-15.0) % Plt Count 206 (150-400) 10^3/uL Neut % (Auto) 67.4 (35-85) % Lymph % (Auto) 17.1 (10-55) % Hendry % (Auto) 12.8 (0-16) % Eos % (Auto) 2.5 (0-5) % Baso % (Auto) 0.2 (0-3) % Neut # (Auto) 7.35 H (1.80-7.00) 10^3/uL Lymph # (Auto) 1.87 (1.00-4.80) 10^3/uL Hendry # (Auto) 1.40 H (0.00-0.80) 10^3/uL Eos # (Auto) 0.27 (0.00-0.45) 10^3/uL Baso # (Auto) 0.02 10^3/uL Sodium 142 (136-145) mEq/L Potassium 4.5 (3.5-5.0) mEq/L Chloride 105 (98-106) mEq/L Carbon Dioxide 28 (21-32) mmol/L BUN 23 H (7-18) mg/dL Creatinine 1.5 H (0.7-1.3) mg/dL Est Cr Clr Drug Dosing 58.45 mL/min Estimated GFR (MDRD) 48 L (>=60) mL/min Glucose 137 H D (75-99) mg/dL Calcium 9.0 (8.4-10.1) mg/dL Total Bilirubin 0.4 (0.0-1.0) mg/dL AST 25 (15-37) U/L ALT 26 (12-78) U/L Alkaline Phosphatase 62 (46-116) U/L Total Protein 7.1 (6.4-8.2) g/dL Albumin 3.3 L (3.4-5.0) g/dL Urine Color Yellow (YELLOW) Urine Appearance Clear (CLEAR) Urine pH 5.5 (4.5-8.0) Ur Specific [place] 1.025 H (1.003-1.020) Urine Protein Negative (NEGATIVE) mg/dL Urine Glucose (UA) Negative (NEGATIVE) mg/dL Urine Ketones Negative (NEGATIVE) mg/dL Urine Occult Blood Small H (NEGATIVE) Urine Nitrite Negative (NEGATIVE) Urine Bilirubin Negative (NEGATIVE) Urine Urobilinogen 0.2 (0.2-1.0) EU/dL Ur Leukocyte Esterase Negative (NEGATIVE) Urine RBC 10-20 H (0-5) /HPF Urine WBC Not seen (0-5) /HPF Urine Bacteria Occasional H (NOT SEEN) /HPF - Radiology Interpretation Free Text/Narrative:: ct still pending, has a left UPJ stone with mild hydro Departure - Departure Time of Disposition: 04:01 Disposition: Home, Self-Care 01 Condition: Good Clinical Impression: Left ureteral calculus - Discharge Information *PRESCRIPTION DRUG MONITORING PROGRAM REVIEWED*: Not Applicable *COPY OF PRESCRIPTION DRUG MONITORING REPORT IN PATIENT ELDA: Not Applicable Instructions: Kidney Stones, [id number] Forms: ED Department Discharge Additional Instructions: Flomax 0.4mg at bed time [place] 5/325mg every 4 hours as needed for more severe pain Toradol 10mg every 8 hours as needed for pain follow up with the clinic this week for a referral to a urologist return to the ED as needed - Problem List & Annotations (1) Left ureteral calculus SNOMED Code(s): 86005113 Code(s): N20.1 - CALCULUS OF URETER Status: Acute Current Visit: Yes - Problem List Review Problem List Initiated/Reviewed/Updated: Yes - My Orders Last 24 Hours: My Active Orders 06/05/18 03:32 Abdomen Pelvis wo Cont [CT] Stat - Assessment/Plan Last 24 Hours: My Active Orders 06/05/18 03:32 Abdomen Pelvis wo Cont [CT] Stat Plan: as above
[2018-06-05] MEDS: Take Home: Acetaminophen/HYDROcodone 325-5 MG, 2 Tab Pack PO ONE (04:17)
[2018-06-05] MEDS: Tamsulosin 0.4 MG Cap.ER PO ONE (04:17)
== END 2018-06-05 04:15 | disposition home or self-care (01) ==
LOC: CC.ED 02:39
DX: N13.2 Hydronephrosis with renal and ureteral calculous obstruction (principal); I10 Essential (primary) hypertension; E11.9 Type 2 diabetes mellitus without complications; E66.9 Obesity, unspecified; J44.9 Chronic obstructive pulmonary disease, unspecified; Z88.1 Allergy status to other antibiotic agents; Z79.82 Long term (current) use of aspirin; Z79.899 Other long term (current) drug therapy; Z87.891 Personal history of nicotine dependence
CPT/HCPCS: 36415; 74176; 80053; 81001; 85025; 99284; A9270-GY

== ENCOUNTER 2018-11-20 18:58 | Inpatient (IN) | payer MEDICARE, OTHER ==
[2018-11-20] MEDS ORDERED: Morphine 10 MG/ML Syringe IVPUSH ONE (19:05)
[2018-11-20] MEDS ORDERED: Ondansetron 4 MG/2 ML SDV IVPUSH STA (19:05)
--- NOTE | 2018-11-20 19:13 | EDM.PDOC ---
ED HPI GENERAL MEDICAL PROBLEM - General Chief Complaint: General Stated Complaint: swelling LLE Time Seen by Provider: 11/20/18 19:04 Source of Information: Reports: Patient History Limitations: Reports: No Limitations - History of Present Illness INITIAL COMMENTS - FREE TEXT/NARRATIVE: This patient is a 63 year old male that presents to the ER. Patient arrives via private vehicle. The patient reports that 2 days he started having swelling and pain to the LLE. Patient reports then today he noticed the area was red. He reports today he has had chills and sweaty. He reports today he also had nausea and vomiting. Onset Date: 11/18/18 Duration: Day(s): (2) Location: Reports: Lower Extremity, Left Front/Back Body Image: 1 - pain, swelling, tenderness, redness. Quality: Reports: Throbbing Severity: Moderate Improves with: Reports: None Worsens with: Reports: None Associated Symptoms: Denies: Confusion, Chest Pain, Cough, cough w sputum, Diaphoresis, Fever/Chills, Headaches, Loss of Appetite, Malaise, Nausea/Vomiting , Rash, Seizure, Shortness of Breath, Syncope, Weakness Left Lower Leg Pain Score (Numeric/FACES): 8 - Related Data Allergies Allergy/AdvReac Type Severity Reaction Status Date / Time vancomycin Allergy Intermediate Rash Verified 11/20/18 19:11 Home Meds: Home Meds Albuterol Sulfate [Proair Respiclick] 90 mcg IH Q6H PRN 04/08/15 [History] Aspirin [Adult Low Dose Aspirin EC] 81 mg PO DAILY 04/08/15 [History] Budesonide/Formoterol [Symbicort 160-4.5 MCG] 2 puff IH BID 04/08/15 [History] Cholecalciferol (Vitamin D3) [Vitamin D3] 1,000 unit PO BID 04/08/15 [History] Clopidogrel Bisulfate [Clopidogrel] 75 mg PO DAILY 04/08/15 [History] Furosemide 80 mg PO DAILY 04/08/15 [History] Gabapentin [Neurontin] 600 mg PO QAM 04/08/15 [History] Ibuprofen 1 tab PO TID PRN 04/08/15 [History] Insulin Aspart [NovoLOG] 70 unit SUBCUT QAM 04/08/15 [History] Insulin Glarg,Human.Rec.Analog [Lantus] 75 unit SQ QAM 04/08/15 [History] Ipratropium/Albuterol Sulfate [Iprat-Albut 0.5-3(2.5) mg/3 ml] 1 unit NEB Q6HR PRN 04/08/15 [History] Lisinopril 40 mg PO DAILY 04/08/15 [History] Magnesium Oxide 420 mg PO BID 04/08/15 [History] Multivitamin [Multi-Vitamin Daily] 1 tab PO DAILY 04/08/15 [History] Omeprazole 20 mg PO BIDAC 04/08/15 [History] Urea [Urea 20% Crm] 1 gm TOP DAILY PRN 04/08/15 [History] metFORMIN HCl [Metformin HCl] 1,000 mg PO BID 04/08/15 [History] Gabapentin [Neurontin] 900 mg PO BEDTIME 04/14/15 [History] Budesonide [Pulmicort Flexhaler] 2 puff IH BID 03/12/16 [History] Hydrocodone/Acetaminophen [Hydrocodon-Acetaminophen 5-325] 1 - 2 tab PO Q6H PRN 03/12/16 [History] Insulin Aspart [NovoLOG] 60 unit SUBCUT QPM 03/12/16 [History] Insulin Glargine,Hum.Rec.Anlog [Lantus Solostar] 70 unit SQ QPM 03/12/16 [ History] Areds 2 1 tab PO DAILY 09/17/16 [History] Glucosamine HCl [Glucosamine] 1,500 mg PO DAILY 09/17/16 [History] Metoprolol Succinate 100 mg PO QPM 09/17/16 [History] DULoxetine HCl [Duloxetine HCl] 60 mg PO DAILY 12/07/16 [History] Past Medical History HEENT History: Reports: Other (See Below) Other HEENT History: says he has a couple bad teeth Cardiovascular History: Reports: High Cholesterol, Hypertension, Stents Respiratory History: Reports: COPD Other Respiratory History: pulm scraping in 2013 Other Genitourinary History: vasEctomy Other Musculoskeletal History: needs bilateral knee replacements Neurological History: Reports: Neuropathy, Peripheral Psychiatric History: Reports: Depression Endocrine/Metabolic History: Reports: Diabetes, Type II, Obesity/BMI 30+ Dermatologic History: Reports: Cellulitis Other Dermatologic History: ulcer to right leg - Infectious Disease History Infectious Disease History: Reports: MRSA, Other (See Below) - Past Surgical History HEENT Surgical History: Reports: None Cardiovascular Surgical History: Reports: Coronary Artery Stent Respiratory Surgical History: Reports: Other (See Below) GI Surgical History: Reports: Cholecystectomy Male Surgical History: Reports: Vasectomy Neurological Surgical History: Reports: None Musculoskeletal Surgical History: Reports: Knee Replacement Social & Family History - Family History Family Medical History: Noncontributory - Caffeine Use Caffeine Use: Reports: Tea - Living Situation & Occupation Living situation: Reports: , with Family Occupation: Disabled ED ROS GENERAL - Review of Systems Review Of Systems: See Below Constitutional: Reports: Fever, Chills, Malaise, Diaphoresis HEENT: Reports: No Symptoms Respiratory: Reports: No Symptoms Cardiovascular: Reports: No Symptoms Endocrine: Reports: No Symptoms GI/Abdominal: Reports: Nausea, Vomiting. Denies: Abdominal Pain, Diarrhea : Reports: No Symptoms Musculoskeletal: Reports: Leg Pain (LLE) Skin: Reports: Erythema (LLE) Neurological: Reports: No Symptoms Psychiatric: Reports: No Symptoms Hematologic/Lymphatic: Reports: No Symptoms Immunologic: Reports: No Symptoms ED EXAM, GENERAL - Physical Exam Exam: See Below Exam Limited By: No Limitations General Appearance: Alert, WD/WN, Mild Distress (in pain), Obese Eye Exam: Bilateral Eye: Normal Inspection, PERRL Ears: Normal External Exam, Hearing Grossly Normal (with hearing aids), Other ( hearing aids in place) Ear Exam: Bilateral Ear: Auricle Normal, Canal Normal, TM normal Nose: Normal Inspection, Normal Mucosa, No Blood Throat/Mouth: Normal Inspection, Normal Lips, Normal Teeth, Normal Gums, Normal Oropharynx, Normal Voice, No Airway Compromise Head: Atraumatic, Normocephalic Neck: Normal Inspection, Supple, Non-Tender, Full Range of Motion Respiratory/Chest: No Respiratory Distress, Lungs Clear, Normal Breath Sounds, No Accessory Muscle Use, Chest Non-Tender Cardiovascular: Normal Peripheral Pulses, Regular Rate, Rhythm, No Edema, No Gallop, No JVD, No Murmur, No Rub Peripheral Pulses: 2+: Femoral (L), Femoral (R), Popliteal (L), Popliteal (R), Posterior Tibial (L), Posterior Tibial (R), Dorsalis Pedis (L), Dorsalis Pedis ( R) GI/Abdominal: Soft, Non-Tender (Male) Exam: Deferred Rectal (Males) Exam: Deferred Back Exam: Normal Inspection, Full Range of Motion Extremities: Pedal Edema (+2 BLE), Rizwan's Sign (but with pain entire LLE below knee), Leg Pain (LLE), Increased Warmth (LLE), Redness (LLE, below knee to ankle. Circumferential. Hot to touch. Boiling anterior [place] due to swelling. ) Neurological: Alert, Oriented, Normal Cognition, No Motor/Sensory Deficits Psychiatric: Normal Affect, Normal Mood Skin Exam: Warm, Dry, Erythema (LLE) Lymphatic: No Adenopathy Course - Vital Signs Last Recorded V/S: Last Vital Signs Temp 101.3 F H 11/20/18 18:59 Pulse 92 11/20/18 18:59 Resp 18 11/20/18 18:59 BP 150/73 H 11/20/18 18:59 Pulse Ox 97 11/20/18 18:59 - Orders/Labs/Meds Orders: Active Orders 24 hr Category Date Time Status CBC WITH AUTO DIFF [HEME] Stat Lab 11/20/18 19:04 Ordered COMPREHENSIVE METABOLIC PN,CMP [CHEM] Stat Lab 11/20/18 19:04 Ordered CRP [C-REACTIVE PROTEIN] [CHEM] Stat Lab 11/20/18 19:04 Ordered CULTURE BLOOD [BC] Stat Lab 11/20/18 19:04 Ordered CULTURE BLOOD [BC] Stat Lab 11/20/18 19:04 Ordered LACTIC ACID [CHEM] Stat Lab 11/20/18 19:04 Ordered PRO B-TYPE NATRIUR PEPT,BNPPRO [CHEM] Stat Lab 11/20/18 19:04 Ordered Blood Culture x2 Reflex Set [OM.PC] Stat Oth 11/20/18 19:04 Ordered Meds: Medications Discontinued Medications Generic Name Dose Route Start Last Admin Trade Name Freq PRN Reason Stop Dose Admin Morphine Sulfate 5 mg 11/20/18 19:05 Morphine IVPUSH 11/20/18 19:06 ONETIME ONE Ondansetron HCl 4 mg 11/20/18 19:05 Zofran IVPUSH 11/20/18 19:06 NOW STA Departure - Departure Time of Disposition: 19:20 Disposition: DC/Tfer to Acute Hospital 02 Condition: Fair Clinical Impression: Cellulitis of left lower extremity - Discharge Information Forms: ED Department Discharge - My Orders Last 24 Hours: My Active Orders 11/20/18 19:04 CBC WITH AUTO DIFF [HEME] Stat COMPREHENSIVE METABOLIC PN,CMP [CHEM] Stat CRP [C-REACTIVE PROTEIN] [CHEM] Stat CULTURE BLOOD [BC] Stat CULTURE BLOOD [BC] Stat LACTIC ACID [CHEM] Stat PRO B-TYPE NATRIUR PEPT,BNPPRO [CHEM] Stat Blood Culture x2 Reflex Set [OM.PC] Stat - Assessment/Plan Last 24 Hours: My Active Orders 11/20/18 19:04 CBC WITH AUTO DIFF [HEME] Stat COMPREHENSIVE METABOLIC PN,CMP [CHEM] Stat CRP [C-REACTIVE PROTEIN] [CHEM] Stat CULTURE BLOOD [BC] Stat CULTURE BLOOD [BC] Stat LACTIC ACID [CHEM] Stat PRO B-TYPE NATRIUR PEPT,BNPPRO [CHEM] Stat Blood Culture x2 Reflex Set [OM.PC] Stat Plan: PLEASE SEE RN NOTE FOR PFSH. PLEASE SEE RN NOTE FOR PFSH.
[2018-11-20] MEDS ORDERED: Acetaminophen 500 MG Tab PO ONE (19:21)
[2018-11-20] MEDS ORDERED: Morphine 10 MG/ML Syringe IM ONE (19:28)
[2018-11-20] MEDS ORDERED: Insulin Regular, Human 100 Units/ML 3 ML Vial IV ONE (19:59)
[2018-11-20] MEDS ORDERED: Docusate Sodium 100 MG Cap PO PRN (20:16)
[2018-11-20] MEDS ORDERED: Ondansetron 4 MG/2 ML SDV IV PRN (20:16)
[2018-11-20] MEDS ORDERED: Temazepam 15 MG Cap PO PRN (20:16)
[2018-11-20] MEDS ORDERED: Morphine 2 MG/ML Syringe IVPUSH PRN (20:16)
[2018-11-20] MEDS ORDERED: Acetaminophen 325 MG Tab PO PRN (20:16)
[2018-11-20] MEDS: Sodium Chloride 0.9% 1,000 ML IV SCH (20:50)
[2018-11-20] MEDS: Ibuprofen 200 MG Tab PO PRN (20:51)
[2018-11-20] MEDS: ceFAZolin 1 GM Vial IVPUSH SCH (20:51)
[2018-11-20] MEDS: Enoxaparin 40 MG/0.4 ML Syringe SUBCUT SCH (21:29)
[2018-11-20] MEDS: Acetaminophen/HYDROcodone 325-5 MG Tab PO PRN (23:25)
[2018-11-21] MEDS: ceFAZolin 1 GM Vial IVPUSH SCH ×4 (01:59→19:36)
[2018-11-21] MEDS: Acetaminophen/HYDROcodone 325-5 MG Tab PO PRN ×4 (07:09→21:32)
[2018-11-21 07:24] LABS: CHLORIDE,CL 97 mEq/L (98-106); SODIUM,NA 134 mEq/L (136-145)
[2018-11-21] MEDS: Ibuprofen 200 MG Tab PO PRN ×3 (08:06→23:20)
[2018-11-21] MEDS ORDERED: Albuterol/Ipratropium 3.0-0.5 MG/3 ML Neb Soln NEB PRN (08:43)
[2018-11-21] MEDS ORDERED: Albuterol 8 GM Inhaler INH PRN (08:43)
[2018-11-21] MEDS ORDERED: AREDS PO SCH (08:45)
[2018-11-21] MEDS ORDERED: Budesonide 0.5 MG/2 ML Neb Susp INH PRN (09:00)
[2018-11-21] MEDS ORDERED: GLUCOSAMINE HCL 1500 MG PO SCH (09:00)
[2018-11-21] MEDS ORDERED: Ibuprofen 200 MG Tab PO PRN (09:09)
--- NOTE | 2018-11-21 09:19 | PCM.PN ---
- General Info Date of Service: 11/21/18 Admission Dx/Problem (Free Text): Cellulitis LLE Functional Status: Reports: Pain Controlled (states leg still very tender), Tolerating Diet, Ambulating - Review of Systems General: Reports: Fever, Malaise HEENT: Reports: No Symptoms Pulmonary: Denies: Shortness of Breath, Cough Cardiovascular: Reports: Edema. Denies: Chest Pain, Lightheadedness Gastrointestinal: Reports: Decreased Appetite. Denies: Abdominal Pain, Nausea, Vomiting Genitourinary: Reports: No Symptoms Musculoskeletal: Reports: Leg Pain Skin: Reports: Other (redness to left lower extremity) Neurological: Reports: No Symptoms - Patient Data Vitals - Most Recent: Last Vital Signs Temp 100.4 F 11/21/18 08:06 Pulse 82 11/21/18 04:00 Resp 18 11/21/18 04:00 BP 132/73 11/21/18 04:00 Pulse Ox 97 11/21/18 04:00 Weight - Most Recent: 336 lb 14.4 oz Lab Results Last 24 Hours: Laboratory Results - last 24 hr 11/20/18 11/20/18 11/20/18 Range/Units 19:15 19:15 19:20 WBC 18.7 H (5.0-10.0) 10^3/uL RBC 4.53 (4.50-6.00) 10^6/uL Hgb 12.9 L (14.0-18.0) g/dL Hct 39.3 L (40.0-54.0) % MCV 86.8 (82.0-94.0) fL MCH 28.5 (27.0-32.0) pg MCHC 32.8 L (33.0-38.0) g/dL RDW Coeff of Jac 14.6 (11.0-15.0) % Plt Count 208 (150-400) 10^3/uL Neut % (Auto) 84.1 (35-85) % Lymph % (Auto) 6.1 L (10-55) % Grand % (Auto) 9.5 (0-16) % Eos % (Auto) 0.1 (0-5) % Baso % (Auto) 0.2 (0-3) % Neut # (Auto) 15.74 H (1.80-7.00) 10^3/uL Lymph # (Auto) 1.14 (1.00-4.80) 10^3/uL Grand # (Auto) 1.78 H (0.00-0.80) 10^3/uL Eos # (Auto) 0.01 (0.00-0.45) 10^3/uL Baso # (Auto) 0.03 10^3/uL Add Manual Diff Neutrophils % (Manual) (35-85) % Band Neutrophils % (0-5) % Lymphocytes % (Manual) (21-55) % Monocytes % (Manual) (2-12) % Sodium 132 L (136-145) mEq/L Potassium 4.3 D (3.5-5.0) mEq/L Chloride 94 L (98-106) mEq/L Carbon Dioxide 29 (21-32) mmol/L BUN 15 D (7-18) mg/dL Creatinine 1.3 (0.7-1.3) mg/dL Est Cr Clr Drug Dosing 66.58 mL/min Estimated GFR (MDRD) 56 L (>=60) mL/min Glucose 431 H* D (75-99) mg/dL POC Glucose (75-105) mg/dl Lactic Acid 1.9 (0.4-2.0) mmol/L Calcium 8.8 (8.4-10.1) mg/dL Total Bilirubin 1.2 H (0.0-1.0) mg/dL AST 20 (15-37) U/L ALT 27 (12-78) U/L Alkaline Phosphatase 59 (46-116) U/L C-Reactive Protein 24.8 H (0.2-0.8) mg/dL NT-Pro-B Natriuret Pep 526 (0-1000) pg/mL Total Protein 7.6 (6.4-8.2) g/dL Albumin 2.9 L (3.4-5.0) g/dL 11/21/18 11/21/18 11/21/18 Range/Units 07:00 07:00 07:55 WBC 17.1 H (5.0-10.0) 10^3/uL RBC 4.18 L (4.50-6.00) 10^6/uL Hgb 11.7 L (14.0-18.0) g/dL Hct 37.4 L (40.0-54.0) % MCV 89.5 (82.0-94.0) fL MCH 28.0 (27.0-32.0) pg MCHC 31.3 L (33.0-38.0) g/dL RDW Coeff of Jac 14.7 (11.0-15.0) % Plt Count 207 (150-400) 10^3/uL Neut % (Auto) (35-85) % Lymph % (Auto) (10-55) % Grand % (Auto) (0-16) % Eos % (Auto) (0-5) % Baso % (Auto) (0-3) % Neut # (Auto) (1.80-7.00) 10^3/uL Lymph # (Auto) (1.00-4.80) 10^3/uL Grand # (Auto) (0.00-0.80) 10^3/uL Eos # (Auto) (0.00-0.45) 10^3/uL Baso # (Auto) 10^3/uL Add Manual Diff Yes Neutrophils % (Manual) 74 (35-85) % Band Neutrophils % 11 H (0-5) % Lymphocytes % (Manual) 6 L (21-55) % Monocytes % (Manual) 9 (2-12) % Sodium 134 L (136-145) mEq/L Potassium 4.4 (3.5-5.0) mEq/L Chloride 97 L (98-106) mEq/L Carbon Dioxide 31 (21-32) mmol/L BUN 18 (7-18) mg/dL Creatinine 1.2 (0.7-1.3) mg/dL Est Cr Clr Drug Dosing 72.13 mL/min Estimated GFR (MDRD) > 60 (>=60) mL/min Glucose 346 H* (75-99) mg/dL POC Glucose 375 H (75-105) mg/dl Lactic Acid (0.4-2.0) mmol/L Calcium 8.3 L (8.4-10.1) mg/dL Total Bilirubin (0.0-1.0) mg/dL AST (15-37) U/L ALT (12-78) U/L Alkaline Phosphatase (46-116) U/L C-Reactive Protein 30.0 H (0.2-0.8) mg/dL NT-Pro-B Natriuret Pep (0-1000) pg/mL Total Protein (6.4-8.2) g/dL Albumin (3.4-5.0) g/dL Jeremy Results Last 24 Hours: Microbiology 11/20/18 19:20 Anaerobic Blood Culture - Final Blood - Venous - Lab Draw Med Orders - Current: Current Medications Acetaminophen (Tylenol) 650 mg PO Q4H PRN PRN Reason: Pain (Mild 1-3)/fever Hydrocodone Bitart/Acetaminophen ([place] 325-5 Mg) 2 tab PO Q4H PRN PRN Reason: Pain (moderate 4-6) Last Admin: 11/21/18 07:09 Dose: 2 tab Albuterol (Ventolin Hfa) 0 gm INH Q6H PRN PRN Reason: Dyspnea Albuterol/Ipratropium (Duoneb 3.0-0.5 Mg/3 Ml) 3 ml NEB Q6H PRN PRN Reason: Dyspnea Aspirin (Halfprin) 81 mg PO DAILY [facility] Budesonide (Pulmicort) 0.5 mg INH BID PRN PRN Reason: Shortness of Breath Bupropion HCl (Wellbutrin Xl) 75 mg PO DAILY [facility] Cefazolin Sodium (Ancef) 1 gm IVPUSH Q6H [facility] Last Admin: 11/21/18 08:08 Dose: 1 gm Cholecalciferol (Vitamin D3) 25 mcg PO BID [facility] Clopidogrel Bisulfate (Plavix) 75 mg PO DAILY [facility] Docusate Sodium (Colace) 100 mg PO BID PRN PRN Reason: Constipation Enoxaparin Sodium (Lovenox) 40 mg SUBCUT Q24H [facility] Last Admin: 11/20/18 21:29 Dose: 40 mg Furosemide (Lasix) 80 mg PO DAILY [facility] Gabapentin (Neurontin) 600 mg PO QAM [facility] Sodium Chloride (Normal Saline) 1,000 mls @ 75 mls/hr IV ASDIRECTED [facility] Stop: 11/21/18 12:00 Last Admin: 11/20/18 20:50 Dose: 75 mls/hr Ibuprofen (Motrin) 600 mg PO Q6H PRN PRN Reason: Pain (mild 1-3) Last Admin: 11/21/18 08:06 Dose: 600 mg Ibuprofen (Motrin) 200 mg PO Q4H PRN PRN Reason: Pain Insulin Glargine (Lantus Solostar) 75 units SUBCUT QAM [facility] Insulin Glargine (Lantus Solostar) 70 units SUBCUT QPM [facility] Insulin Human Lispro (Humalog) 70 unit SUBCUT QAM [facility] Insulin Human Lispro (Humalog) 60 unit SUBCUT QPM [facility] Lisinopril (Prinivil) 40 mg PO DAILY [facility] Magnesium Oxide (Magnesium Oxide) 500 mg PO BID [facility] Mometasone Furoate/Formoterol Fumar (Dulera 100-5 Mcg) 2 puff IH BID [facility] Morphine Sulfate (Morphine) 2 mg IVPUSH Q2H PRN PRN Reason: Pain (severe 7-10) Last Admin: 11/20/18 20:50 Dose: 2 mg Multivitamins/Minerals/Vitamin C (Tab-A-Hector) 1 tab PO DAILY [facility] Non-Formulary Medication (Metformin Hcl [Metformin Hcl]) 1,000 mg PO BID [facility] Non-Formulary Medication (Metoprolol Succinate [Metoprolol Succinate]) 100 mg PO QPM [facility] Non-Formulary Medication (Omeprazole [Omeprazole]) 20 mg PO DAILY [facility] Ondansetron HCl (Zofran) 4 mg IV Q6H PRN PRN Reason: Nausea/Vomiting Temazepam (Restoril) 15 mg PO BEDTIME PRN PRN Reason: Sleep Discontinued Medications Acetaminophen (Tylenol Extra Strength) 1,000 mg PO ONETIME ONE Stop: 11/20/18 19:22 Last Admin: 11/20/18 19:39 Dose: 1,000 mg Insulin Human Regular (Humulin R) 10 unit IV ONETIME ONE Stop: 11/20/18 20:00 Last Admin: 11/20/18 21:28 Dose: 10 units Morphine Sulfate (Morphine) 5 mg IVPUSH ONETIME ONE Stop: 11/20/18 19:06 Last Admin: 11/20/18 20:33 Dose: Not Given Morphine Sulfate (Morphine) 5 mg IM ONETIME ONE Stop: 11/20/18 19:29 Last Admin: 11/20/18 19:34 Dose: 5 mg Non-Formulary Medication (Areds 2) 1 tab PO DAILY [facility] Non-Formulary Medication (Gabapentin) 900 mg PO BEDTIME [facility] Non-Formulary Medication (Glucosamine Hcl [Glucosamine]) 1,500 mg PO DAILY [facility] Ondansetron HCl (Zofran) 4 mg IVPUSH NOW STA Stop: 11/20/18 19:06 Last Admin: 11/20/18 20:50 Dose: 4 mg - Exam General: Alert, Oriented HEENT: Mucous Membr. Moist/[place] Neck: Supple Lungs: Clear to Auscultation, Normal Respiratory Effort Cardiovascular: Regular Rate, Regular Rhythm GI/Abdominal Exam: Normal Bowel Sounds, Soft, Non-Tender Extremities: Leg Pain, Increased Warmth, Redness (left lower extremity is swollen, hot and tender to the touch. States "this leg is usually his normal looking") Skin: Warm, Dry, Other (redness) Neurological: No New Focal Deficit - Problem List & Annotations (1) Cellulitis of left lower extremity SNOMED Code(s): 503789433 Code(s): L03.116 - CELLULITIS OF LEFT LOWER LIMB Status: Acute Priority: High Current Visit: Yes (2) Diabetes SNOMED Code(s): 80249479 Code(s): E11.9 - TYPE 2 DIABETES MELLITUS WITHOUT COMPLICATIONS Status: Chronic Priority: High Current Visit: Yes Qualifiers: Diabetes mellitus type: type 2 Diabetes mellitus half-way insulin use: with machine long goods helper use Diabetes mellitus complication detail: with other kidney complication (3) Hypertension SNOMED Code(s): 68909062 Code(s): I10 - ESSENTIAL (PRIMARY) HYPERTENSION Status: Chronic Current Visit: No Qualifiers: Hypertension type: essential hypertension Qualified Code(s): I10 - Essential (primary) hypertension - Problem List Review Problem List Initiated/Reviewed/Updated: Yes - Assessment Assessment:: Patient continues to have discomfort to LLE. States leg typically does not have much edema or redness. Does typically have venous stasis changes to right leg but left leg is clear. Per skin markings, redness has improved. Patient states less swelling today as well. Still warm. Had fevers yet last night. WBC still high today at 17.1. CRP increased to 30 today. Will continue with Ancef as is improving. Obtain venous insufficiency studies. Repeat labs in am.
[2018-11-21] MEDS: Formoterol/Mometasone 100-5 MCG 8.8 GM Inhaler IH SCH ×2 (09:32→19:47)
[2018-11-21] MEDS: Insulin Glargine,Human Rec. Analog 100 Units/ML 3 ML Pen SUBCUT SCH ×2 (09:33→19:44)
[2018-11-21] MEDS: Gabapentin 300 MG Cap PO SCH (09:35)
[2018-11-21] MEDS: Lisinopril 20 MG Tab PO SCH (09:35)
[2018-11-21] MEDS: Pantoprazole 40 MG Tab.CR PO SCH (09:38)
[2018-11-21] MEDS: Furosemide 80 MG Tab PO SCH (09:38)
[2018-11-21] MEDS: Cholecalciferol (Vitamin D3) 25 MCG Tab PO SCH ×2 (09:38→19:37)
[2018-11-21] MEDS: Multivitamin Tab PO SCH (09:38)
[2018-11-21] MEDS: Aspirin 81 MG Tab.EC PO SCH (09:38)
[2018-11-21] MEDS: buPROPion 150 MG Tab.ER PO SCH (09:39)
[2018-11-21] MEDS: Clopidogrel 75 MG Tab PO SCH (09:39)
[2018-11-21] MEDS: metFORMIN 500 MG Tab.ER PO SCH ×2 (09:39→19:37)
[2018-11-21] MEDS: Insulin Lispro 100 Units/ML 3 ML Vial SUBCUT SCH ×2 (09:49→19:44)
[2018-11-21] MEDS: Sodium Chloride 0.9% 1,000 ML IV SCH (09:52)
[2018-11-21] MEDS: Enoxaparin 40 MG/0.4 ML Syringe SUBCUT SCH (19:36)
[2018-11-21] MEDS: Metoprolol Succinate 100 MG Tab.ER PO SCH (19:37)
[2018-11-21] MEDS ORDERED: GABAPENTIN 900 MG PO SCH (20:00)
[2018-11-22] MEDS: ceFAZolin 1 GM Vial IVPUSH SCH ×4 (01:07→19:47)
[2018-11-22] MEDS: Clopidogrel 75 MG Tab PO SCH (07:46)
[2018-11-22] MEDS: Multivitamin Tab PO SCH (07:46)
[2018-11-22] MEDS: buPROPion 150 MG Tab.ER PO SCH (07:46)
[2018-11-22] MEDS: Aspirin 81 MG Tab.EC PO SCH (07:47)
[2018-11-22] MEDS: Pantoprazole 40 MG Tab.CR PO SCH (07:47)
[2018-11-22] MEDS: Furosemide 80 MG Tab PO SCH (07:47)
[2018-11-22] MEDS: Cholecalciferol (Vitamin D3) 25 MCG Tab PO SCH ×2 (07:47→19:42)
[2018-11-22] MEDS: metFORMIN 500 MG Tab.ER PO SCH ×2 (07:48→19:40)
[2018-11-22] MEDS: Gabapentin 300 MG Cap PO SCH (07:48)
[2018-11-22] MEDS: Acetaminophen/HYDROcodone 325-5 MG Tab PO PRN ×3 (07:50→21:18)
[2018-11-22] MEDS: Formoterol/Mometasone 100-5 MCG 8.8 GM Inhaler IH SCH ×2 (07:51→19:51)
[2018-11-22] MEDS: Lisinopril 20 MG Tab PO SCH (07:52)
[2018-11-22] MEDS: Insulin Glargine,Human Rec. Analog 100 Units/ML 3 ML Pen SUBCUT SCH ×2 (08:08→20:03)
[2018-11-22] MEDS: Insulin Lispro 100 Units/ML 3 ML Vial SUBCUT SCH ×2 (08:09→20:01)
[2018-11-22] MEDS: Sodium Chloride 0.9% 1,000 ML IV SCH ×2 (09:15→16:07)
--- NOTE | 2018-11-22 09:17 | PCM.PN ---
- General Info Date of Service: 11/22/18 Admission Dx/Problem (Free Text): Cellulitis LLE Functional Status: Reports: Pain Controlled, Tolerating Diet, Ambulating - Review of Systems General: Reports: Fever (low grade fever), Weakness, Fatigue, Malaise HEENT: Reports: No Symptoms Pulmonary: Reports: Cough. Denies: Shortness of Breath Cardiovascular: Reports: Chest Pain, Edema. Denies: Lightheadedness Gastrointestinal: Denies: Abdominal Pain, Nausea, Vomiting Genitourinary: Reports: No Symptoms Musculoskeletal: Reports: Leg Pain Skin: Reports: Other (redness to leg) Neurological: Reports: No Symptoms - Patient Data Vitals - Most Recent: Last Vital Signs Temp 98 F 11/22/18 04:00 Pulse 63 11/22/18 04:00 Resp 18 11/22/18 04:00 BP 98/60 11/22/18 07:52 Pulse Ox 96 11/22/18 04:00 Weight - Most Recent: 336 lb 14.4 oz Lab Results Last 24 Hours: Laboratory Results - last 24 hr 11/21/18 11/21/18 11/21/18 Range/Units 11:36 17:22 21:30 WBC (5.0-10.0) 10^3/uL RBC (4.50-6.00) 10^6/uL Hgb (14.0-18.0) g/dL Hct (40.0-54.0) % MCV (82.0-94.0) fL MCH (27.0-32.0) pg MCHC (33.0-38.0) g/dL RDW Coeff of Jac (11.0-15.0) % Plt Count (150-400) 10^3/uL Add Manual Diff Neutrophils % (Manual) (35-85) % Band Neutrophils % (0-5) % Lymphocytes % (Manual) (21-55) % Monocytes % (Manual) (2-12) % Eosinophils % (Manual) (0-5) % Absolute Neutrophils (1.80-7.00) 10^3/uL Lymphocytes # (Manual) (1.00-4.80) 10^3/uL Monocytes # (Manual) (0.00-0.80) 10^3/uL Eosinophils # (Manual) (0.00-0.45) 10^3/uL Rouleaux (NOT SEEN) Sodium (136-145) mEq/L Potassium (3.5-5.0) mEq/L Chloride (98-106) mEq/L Carbon Dioxide (21-32) mmol/L BUN (7-18) mg/dL Creatinine (0.7-1.3) mg/dL Est Cr Clr Drug Dosing mL/min Estimated GFR (MDRD) (>=60) mL/min Glucose (75-99) mg/dL POC Glucose 365 H 275 H 347 H (75-105) mg/dl Calcium (8.4-10.1) mg/dL C-Reactive Protein (0.2-0.8) mg/dL 11/22/18 11/22/18 11/22/18 Range/Units 01:04 07:20 07:20 WBC 15.9 H (5.0-10.0) 10^3/uL RBC 3.88 L (4.50-6.00) 10^6/uL Hgb 10.9 L (14.0-18.0) g/dL Hct 34.5 L (40.0-54.0) % MCV 88.9 (82.0-94.0) fL MCH 28.1 (27.0-32.0) pg MCHC 31.6 L (33.0-38.0) g/dL RDW Coeff of Jac 14.8 (11.0-15.0) % Plt Count 250 (150-400) 10^3/uL Add Manual Diff Yes Neutrophils % (Manual) 66 (35-85) % Band Neutrophils % 14 H (0-5) % Lymphocytes % (Manual) 13 L (21-55) % Monocytes % (Manual) 6 (2-12) % Eosinophils % (Manual) 1 (0-5) % Absolute Neutrophils 12.72 H (1.80-7.00) 10^3/uL Lymphocytes # (Manual) 2.07 (1.00-4.80) 10^3/uL Monocytes # (Manual) 0.95 H (0.00-0.80) 10^3/uL Eosinophils # (Manual) 0.16 (0.00-0.45) 10^3/uL Rouleaux 1+ slight H (NOT SEEN) Sodium 135 L (136-145) mEq/L Potassium 4.4 (3.5-5.0) mEq/L Chloride 100 (98-106) mEq/L Carbon Dioxide 26 (21-32) mmol/L BUN 36 H D (7-18) mg/dL Creatinine 2.4 H D (0.7-1.3) mg/dL Est Cr Clr Drug Dosing 36.07 mL/min Estimated GFR (MDRD) 28 L (>=60) mL/min Glucose 204 H D (75-99) mg/dL POC Glucose 262 H (75-105) mg/dl Calcium 8.4 (8.4-10.1) mg/dL C-Reactive Protein 31.9 H (0.2-0.8) mg/dL 11/22/18 Range/Units 07:34 WBC (5.0-10.0) 10^3/uL RBC (4.50-6.00) 10^6/uL Hgb (14.0-18.0) g/dL Hct (40.0-54.0) % MCV (82.0-94.0) fL MCH (27.0-32.0) pg MCHC (33.0-38.0) g/dL RDW Coeff of Jac (11.0-15.0) % Plt Count (150-400) 10^3/uL Add Manual Diff Neutrophils % (Manual) (35-85) % Band Neutrophils % (0-5) % Lymphocytes % (Manual) (21-55) % Monocytes % (Manual) (2-12) % Eosinophils % (Manual) (0-5) % Absolute Neutrophils (1.80-7.00) 10^3/uL Lymphocytes # (Manual) (1.00-4.80) 10^3/uL Monocytes # (Manual) (0.00-0.80) 10^3/uL Eosinophils # (Manual) (0.00-0.45) 10^3/uL Rouleaux (NOT SEEN) Sodium (136-145) mEq/L Potassium (3.5-5.0) mEq/L Chloride (98-106) mEq/L Carbon Dioxide (21-32) mmol/L BUN (7-18) mg/dL Creatinine (0.7-1.3) mg/dL Est Cr Clr Drug Dosing mL/min Estimated GFR (MDRD) (>=60) mL/min Glucose (75-99) mg/dL POC Glucose 199 H (75-105) mg/dl Calcium (8.4-10.1) mg/dL C-Reactive Protein (0.2-0.8) mg/dL Jeremy Results Last 24 Hours: Microbiology 11/20/18 19:20 Aerobic Blood Culture - Preliminary Blood - Venous - Lab Draw NO GROWTH AFTER 1 DAY Anaerobic Blood Culture - Final 11/20/18 19:15 Aerobic Blood Culture - Preliminary Blood - Venous NO GROWTH AFTER 1 DAY Anaerobic Blood Culture - Preliminary NO GROWTH AFTER 1 DAY Med Orders - Current: Current Medications Acetaminophen (Tylenol) 650 mg PO Q4H PRN PRN Reason: Pain (Mild 1-3)/fever Hydrocodone Bitart/Acetaminophen ([place] 325-5 Mg) 2 tab PO Q4H PRN PRN Reason: Pain (moderate 4-6) Last Admin: 11/22/18 07:50 Dose: 2 tab Albuterol (Ventolin Hfa) 0 gm INH Q6H PRN PRN Reason: Dyspnea Albuterol/Ipratropium (Duoneb 3.0-0.5 Mg/3 Ml) 3 ml NEB Q6H PRN PRN Reason: Dyspnea Aspirin (Halfprin) 81 mg PO DAILY [facility] Last Admin: 11/22/18 07:47 Dose: 81 mg Budesonide (Pulmicort) 0.5 mg INH BID PRN PRN Reason: Shortness of Breath Bupropion HCl (Wellbutrin Xl) 75 mg PO DAILY [facility] Last Admin: 11/22/18 07:46 Dose: 75 mg Cefazolin Sodium (Ancef) 1 gm IVPUSH Q6H [facility] Last Admin: 11/22/18 07:41 Dose: 1 gm Cholecalciferol (Vitamin D3) 25 mcg PO BID [facility] Last Admin: 11/22/18 07:47 Dose: 25 mcg Clopidogrel Bisulfate (Plavix) 75 mg PO DAILY [facility] Last Admin: 11/22/18 07:46 Dose: 75 mg Docusate Sodium (Colace) 100 mg PO BID PRN PRN Reason: Constipation Enoxaparin Sodium (Lovenox) 40 mg SUBCUT Q24H [facility] Last Admin: 11/21/18 19:36 Dose: 40 mg Furosemide (Lasix) 80 mg PO DAILY [facility] Last Admin: 11/22/18 07:47 Dose: 80 mg Gabapentin (Neurontin) 600 mg PO QAM [facility] Last Admin: 11/22/18 07:48 Dose: 600 mg Sodium Chloride (Normal Saline) 1,000 mls @ 125 mls/hr IV ASDIRECTED [facility] Ibuprofen (Motrin) 200 mg PO Q4H PRN PRN Reason: Pain Insulin Glargine (Lantus Solostar) 75 units SUBCUT QAM [facility] Last Admin: 11/22/18 08:08 Dose: 75 unit Insulin Glargine (Lantus Solostar) 70 units SUBCUT QPM [facility] Last Admin: 11/21/18 19:44 Dose: 70 units Insulin Human Lispro (Humalog) 70 unit SUBCUT QAM [facility] Last Admin: 11/22/18 08:09 Dose: 70 unit Insulin Human Lispro (Humalog) 60 unit SUBCUT QPM [facility] Last Admin: 11/21/18 19:44 Dose: 60 units Lisinopril (Prinivil) 40 mg PO DAILY [facility] Last Admin: 11/22/18 07:52 Dose: Not Given Magnesium Oxide (Magnesium Oxide) 500 mg PO BID [facility] Last Admin: 11/22/18 07:48 Dose: 500 mg Metformin HCl (Glucophage Xr) 1,000 mg PO BID [facility] Last Admin: 11/22/18 07:48 Dose: 1,000 mg Metoprolol Succinate (Toprol Xl) 100 mg PO QPM [facility] Last Admin: 11/21/18 19:37 Dose: 100 mg Mometasone Furoate/Formoterol Fumar (Dulera 100-5 Mcg) 2 puff IH BID [facility] Last Admin: 11/22/18 07:51 Dose: 2 puff Morphine Sulfate (Morphine) 2 mg IVPUSH Q2H PRN PRN Reason: Pain (severe 7-10) Last Admin: 11/20/18 20:50 Dose: 2 mg Multivitamins/Minerals/Vitamin C (Tab-A-Hector) 1 tab PO DAILY [facility] Last Admin: 11/22/18 07:46 Dose: 1 tab Ondansetron HCl (Zofran) 4 mg IV Q6H PRN PRN Reason: Nausea/Vomiting Pantoprazole Sodium (Protonix) 40 mg PO DAILY [facility] Last Admin: 11/22/18 07:47 Dose: 40 mg Temazepam (Restoril) 15 mg PO BEDTIME PRN PRN Reason: Sleep Discontinued Medications Acetaminophen (Tylenol Extra Strength) 1,000 mg PO ONETIME ONE Stop: 11/20/18 19:22 Last Admin: 11/20/18 19:39 Dose: 1,000 mg Sodium Chloride (Normal Saline) 1,000 mls @ 75 mls/hr IV ASDIRECTED [facility] Stop: 11/21/18 12:00 Last Admin: 11/21/18 09:52 Dose: 75 mls/hr Ibuprofen (Motrin) 600 mg PO Q6H PRN PRN Reason: Pain (mild 1-3) Last Admin: 11/21/18 23:20 Dose: 600 mg Insulin Human Regular (Humulin R) 10 unit IV ONETIME ONE Stop: 11/20/18 20:00 Last Admin: 11/20/18 21:28 Dose: 10 units Morphine Sulfate (Morphine) 5 mg IVPUSH ONETIME ONE Stop: 11/20/18 19:06 Last Admin: 11/20/18 20:33 Dose: Not Given Morphine Sulfate (Morphine) 5 mg IM ONETIME ONE Stop: 11/20/18 19:29 Last Admin: 11/20/18 19:34 Dose: 5 mg Non-Formulary Medication (Areds 2) 1 tab PO DAILY [facility] Last Admin: 11/21/18 10:20 Dose: Not Given Non-Formulary Medication (Gabapentin) 900 mg PO BEDTIME [facility] Non-Formulary Medication (Glucosamine Hcl [Glucosamine]) 1,500 mg PO DAILY [facility] Last Admin: 11/21/18 10:20 Dose: Not Given Ondansetron HCl (Zofran) 4 mg IVPUSH NOW STA Stop: 11/20/18 19:06 Last Admin: 11/20/18 20:50 Dose: 4 mg - Exam General: Alert, Oriented HEENT: Mucous Membr. Moist/[place] Neck: Supple Lungs: Clear to Auscultation, Normal Respiratory Effort Cardiovascular: Regular Rate, Regular Rhythm GI/Abdominal Exam: Normal Bowel Sounds, Soft, Non-Tender Extremities: Leg Pain, Increased Warmth (leg does have less warmth today, redness unchanged from previous day. ), Redness Skin: Warm, Dry Neurological: No New Focal Deficit - Problem List & Annotations (1) Cellulitis of left lower extremity SNOMED Code(s): 780056535 Code(s): L03.116 - CELLULITIS OF LEFT LOWER LIMB Status: Acute Priority: High Current Visit: Yes (2) Diabetes SNOMED Code(s): 94045752 Code(s): E11.9 - TYPE 2 DIABETES MELLITUS WITHOUT COMPLICATIONS Status: Chronic Priority: High Current Visit: Yes Qualifiers: Diabetes mellitus type: type 2 Diabetes mellitus half-way insulin use: with half-way use Diabetes mellitus complication detail: with other kidney complication (3) Hypertension SNOMED Code(s): 52898214 Code(s): I10 - ESSENTIAL (PRIMARY) HYPERTENSION Status: Chronic Current Visit: No Qualifiers: Hypertension type: essential hypertension Qualified Code(s): I10 - Essential (primary) hypertension - Problem List Review Problem List Initiated/Reviewed/Updated: Yes - My Orders Last 24 Hours: My Active Orders 11/22/18 05:00 VL Duplex Lwr Ext Veins Comp [US] Routine 11/22/18 09:02 LACTIC ACID [CHEM] Routine 11/22/18 09:15 Sodium Chloride 0.9% @ 125 MLS/HR (1000ml) Sodium Chloride 0.9% [Normal Saline] 1,000 ml IV ASDIRECTED - Assessment Assessment:: Patient continues to have discomfort to LLE. States leg typically does not have much edema or redness. Does typically have venous stasis changes to right leg but left leg is clear. Per skin markings, redness has improved. Patient states less swelling today as well. Still warm. Had fevers yet last night. WBC still high today at 17.1. CRP increased to 30 today. Will continue with Ancef as is improving. Obtain venous insufficiency studies. Repeat labs in am. - Plan Plan:: Patient continues to have discomfort yet in his leg. Feels fatigued/tired today but admits did sleep well last night. Fever has decreased, low grade now. Blood pressure has been running low the last 12 hours, 80-90/60. Lisinopril held this am. Leg appears less warm today, swelling and redness unchanged. WBC slightly improved to 15.9. CRP increased to 31.9. Creatinine doubled today to 2.4 from 1.2 yesterday, BUN elevated at 36. Although blood cultures preliminarily show no growth, will add lactic acid today. Continue Ancef at this time. Start IV Normal saline at 125. Monitor blood pressure closely. Repeat labs in am.
[2018-11-22] MEDS: Metoprolol Succinate 100 MG Tab.ER PO SCH (19:42)
[2018-11-22] MEDS: Enoxaparin 40 MG/0.4 ML Syringe SUBCUT SCH (19:43)
[2018-11-23] MEDS: Sodium Chloride 0.9% 1,000 ML IV SCH ×2 (00:35→15:09)
[2018-11-23] MEDS: ceFAZolin 1 GM Vial IVPUSH SCH ×2 (01:45→08:02)
[2018-11-23] MEDS: Acetaminophen/HYDROcodone 325-5 MG Tab PO PRN ×4 (01:48→19:51)
[2018-11-23] MEDS: Pantoprazole 40 MG Tab.CR PO SCH (07:57)
[2018-11-23] MEDS: Gabapentin 300 MG Cap PO SCH (07:57)
[2018-11-23] MEDS: Cholecalciferol (Vitamin D3) 25 MCG Tab PO SCH ×2 (07:57→19:50)
[2018-11-23] MEDS: metFORMIN 500 MG Tab.ER PO SCH ×2 (07:57→19:52)
[2018-11-23] MEDS: Lisinopril 20 MG Tab PO SCH (07:58)
[2018-11-23] MEDS: Multivitamin Tab PO SCH (08:00)
[2018-11-23] MEDS: Clopidogrel 75 MG Tab PO SCH (08:00)
[2018-11-23] MEDS: buPROPion 150 MG Tab.ER PO SCH (08:00)
[2018-11-23] MEDS: Furosemide 80 MG Tab PO SCH (08:00)
[2018-11-23] MEDS: Aspirin 81 MG Tab.EC PO SCH (08:00)
[2018-11-23] MEDS: Insulin Lispro 100 Units/ML 3 ML Vial SUBCUT SCH ×2 (08:09→20:00)
[2018-11-23] MEDS: Formoterol/Mometasone 100-5 MCG 8.8 GM Inhaler IH SCH ×2 (08:10→19:53)
[2018-11-23] MEDS: Insulin Glargine,Human Rec. Analog 100 Units/ML 3 ML Pen SUBCUT SCH ×2 (08:13→20:02)
[2018-11-23] MEDS: Clindamycin Phosphate in D5W 300 MG in Premix Bag 1 BAG IV SCH ×6 (12:08→23:14)
[2018-11-23] MEDS: Enoxaparin 40 MG/0.4 ML Syringe SUBCUT SCH (19:47)
[2018-11-23] MEDS: Metoprolol Succinate 100 MG Tab.ER PO SCH (19:50)
[2018-11-24] MEDS: Acetaminophen/HYDROcodone 325-5 MG Tab PO PRN ×3 (00:16→07:50)
[2018-11-24] MEDS: Clindamycin Phosphate in D5W 300 MG in Premix Bag 1 BAG IV SCH ×4 (05:05→11:58)
[2018-11-24] MEDS: Pantoprazole 40 MG Tab.CR PO SCH (07:48)
[2018-11-24] MEDS: Multivitamin Tab PO SCH (07:49)
[2018-11-24] MEDS: Lisinopril 20 MG Tab PO SCH (07:49)
[2018-11-24] MEDS: Cholecalciferol (Vitamin D3) 25 MCG Tab PO SCH (07:49)
[2018-11-24] MEDS: metFORMIN 500 MG Tab.ER PO SCH (07:49)
[2018-11-24] MEDS: Gabapentin 300 MG Cap PO SCH (07:49)
[2018-11-24] MEDS: Aspirin 81 MG Tab.EC PO SCH (07:50)
[2018-11-24] MEDS: Clopidogrel 75 MG Tab PO SCH (07:50)
[2018-11-24] MEDS: Furosemide 80 MG Tab PO SCH (07:50)
[2018-11-24] MEDS: buPROPion 150 MG Tab.ER PO SCH (07:50)
[2018-11-24] MEDS: Formoterol/Mometasone 100-5 MCG 8.8 GM Inhaler IH SCH (07:53)
[2018-11-24] MEDS: Insulin Lispro 100 Units/ML 3 ML Vial SUBCUT SCH (09:26)
[2018-11-24] MEDS: Insulin Glargine,Human Rec. Analog 100 Units/ML 3 ML Pen SUBCUT SCH (09:28)
[2018-11-24 10:17] LABS: CHLORIDE,CL 101 mEq/L (98-106); SODIUM,NA 139 mEq/L (136-145)
[2018-11-24] MEDS: Sodium Chloride 0.9% 1,000 ML IV SCH (11:09)
--- NOTE | 2018-11-24 12:35 | PCM.DCSUM1 ---
Discharge Summary - Hospital Course Free Text/Narrative:: Patient presented to ER with complaints of swelling, pain and redness in LLE. States had noticed increasing over the last 3 days. No known open sores. No history of much swelling in this leg. Relates does have venous stasis changes/ redness in right leg at times. Also admits to nausea and vomiting, feels sweaty and having chills. WBC was found to be 18.7. CRP 23. Left lower extremity red, swollen and warm. Skin markings placed. Started on IV Ancef. 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 Has had slow improvement of this. Initially did see redness decrease but continued to be warm and swollen. After 2 days, still not improving all that well so IV antibiotics switched to Cleocin. WBC did slowly improve, now 11.4. CRP did peak at 30, down to 16 today. Creatinine did increase to 2.4 on day 1, IV fluids started. Patient voiding well. Now creatinine has improved, 1.0 today. Leg has improved more on IV cleocin, swelling down, redness improving. Does continue to spike fevers yet at times. Blood sugars variable, low 40s to high 300s. Due to ongoing pain, swelling and redness in leg, will transfer to swing bed for ongoing IV antibiotics. - Patient Instructions Diet: Diabetic Diet Activity: As Tolerated - Discharge Plan *PRESCRIPTION DRUG MONITORING PROGRAM REVIEWED*: No *COPY OF PRESCRIPTION DRUG MONITORING REPORT IN PATIENT ELDA: No Home Medications: Home Meds Albuterol Sulfate [Proair Respiclick] 90 mcg IH Q6H PRN 04/08/15 [History] Aspirin [Adult Low Dose Aspirin EC] 81 mg PO DAILY 04/08/15 [History] Budesonide/Formoterol [Symbicort 160-4.5 MCG] 2 puff IH BID PRN 04/08/15 [ History] Cholecalciferol (Vitamin D3) [Vitamin D3] 1,000 unit PO BID 04/08/15 [History] Clopidogrel Bisulfate [Clopidogrel] 75 mg PO DAILY 04/08/15 [History] Furosemide 80 mg PO DAILY 04/08/15 [History] Gabapentin [Neurontin] 600 mg PO QAM 04/08/15 [History] Ibuprofen 1 tab PO TID PRN 04/08/15 [History] Insulin Aspart [NovoLOG] 70 unit SUBCUT QAM 04/08/15 [History] Insulin Glarg,Human.Rec.Analog [Lantus] 75 unit SQ QAM 04/08/15 [History] Ipratropium/Albuterol Sulfate [Iprat-Albut 0.5-3(2.5) mg/3 ml] 1 unit NEB Q6HR PRN 04/08/15 [History] Lisinopril 40 mg PO DAILY 04/08/15 [History] Magnesium Oxide 420 mg PO BID 04/08/15 [History] Multivitamin [Multi-Vitamin Daily] 1 tab PO DAILY 04/08/15 [History] Omeprazole 20 mg PO DAILY 04/08/15 [History] metFORMIN HCl [Metformin HCl] 1,000 mg PO BID 04/08/15 [History] Gabapentin [Neurontin] 900 mg PO BEDTIME 04/14/15 [History] Budesonide [Pulmicort Flexhaler] 2 puff IH BID PRN 03/12/16 [History] Insulin Aspart [NovoLOG] 60 unit SUBCUT QPM 03/12/16 [History] Insulin Glargine,Hum.Rec.Anlog [Lantus Solostar] 70 unit SQ QPM 03/12/16 [ History] Areds 2 1 tab PO DAILY 09/17/16 [History] Glucosamine HCl [Glucosamine] 1,500 mg PO DAILY 09/17/16 [History] Metoprolol Succinate 100 mg PO QPM 09/17/16 [History] buPROPion [Wellbutrin] 75 mg PO DAILY 11/20/18 [History] Patient Handouts: Cellulitis, Adult Forms: ED Department Discharge Referrals: Kavin Hampton MD [Primary Care Provider] - - Discharge Summary/Plan Comment DC Time >30 min.: No - General Info Date of Service: 11/24/18 Admission Dx/Problem (Free Text: Cellulitis LLE Functional Status: Reports: Pain Controlled, Tolerating Diet, Ambulating - Review of Systems General: Reports: Fever, Weakness, Fatigue, Malaise HEENT: Reports: No Symptoms Pulmonary: Denies: Shortness of Breath, Cough, Wheezing Cardiovascular: Reports: Edema. Denies: Chest Pain, Lightheadedness Gastrointestinal: Denies: Abdominal Pain, Nausea, Vomiting Genitourinary: Reports: No Symptoms Musculoskeletal: Reports: Leg Pain Skin: Reports: Other (redness to left leg ) Neurological: Reports: No Symptoms - Patient Data Vitals - Most Recent: Last Vital Signs Temp 97.9 F 11/24/18 08:00 Pulse 72 11/24/18 08:00 Resp 18 11/24/18 08:00 BP 147/52 H 11/24/18 08:00 Pulse Ox 98 11/24/18 08:00 Weight - Most Recent: 336 lb 14.4 oz I&O - Last 24 hours: Intake & Output 11/23/18 11/24/18 11/24/18 22:59 06:59 14:59 Intake Total 50 100 1000 Balance 50 100 1000 Lab Results - Last 24 hrs: Laboratory Results - last 24 hr 11/23/18 11/23/18 11/23/18 Range/Units 11:43 17:14 19:59 WBC (5.0-10.0) 10^3/uL RBC (4.50-6.00) 10^6/uL Hgb (14.0-18.0) g/dL Hct (40.0-54.0) % MCV (82.0-94.0) fL MCH (27.0-32.0) pg MCHC (33.0-38.0) g/dL RDW Coeff of Jac (11.0-15.0) % Plt Count (150-400) 10^3/uL Add Manual Diff Neutrophils % (Manual) (35-85) % Band Neutrophils % (0-5) % Lymphocytes % (Manual) (21-55) % Monocytes % (Manual) (2-12) % Eosinophils % (Manual) (0-5) % Absolute Neutrophils (1.80-7.00) 10^3/uL Lymphocytes # (Manual) (1.00-4.80) 10^3/uL Monocytes # (Manual) (0.00-0.80) 10^3/uL Eosinophils # (Manual) (0.00-0.45) 10^3/uL Platelet Estimate (ADEQUATE) Sodium (136-145) mEq/L Potassium (3.5-5.0) mEq/L Chloride (98-106) mEq/L Carbon Dioxide (21-32) mmol/L BUN (7-18) mg/dL Creatinine (0.7-1.3) mg/dL Est Cr Clr Drug Dosing mL/min Estimated GFR (MDRD) (>=60) mL/min Glucose (75-99) mg/dL POC Glucose 98 124 H 236 H (75-105) mg/dl Calcium (8.4-10.1) mg/dL C-Reactive Protein (0.2-0.8) mg/dL 11/24/18 11/24/18 11/24/18 Range/Units 10:03 10:03 12:13 WBC 11.4 H (5.0-10.0) 10^3/uL RBC 3.79 L (4.50-6.00) 10^6/uL Hgb 10.7 L (14.0-18.0) g/dL Hct 34.1 L (40.0-54.0) % MCV 90.0 (82.0-94.0) fL MCH 28.2 (27.0-32.0) pg MCHC 31.4 L (33.0-38.0) g/dL RDW Coeff of Jac 15.1 H (11.0-15.0) % Plt Count 329 (150-400) 10^3/uL Add Manual Diff Yes Neutrophils % (Manual) 71 (35-85) % Band Neutrophils % 4 (0-5) % Lymphocytes % (Manual) 14 L (21-55) % Monocytes % (Manual) 9 (2-12) % Eosinophils % (Manual) 2 (0-5) % Absolute Neutrophils 8.55 H (1.80-7.00) 10^3/uL Lymphocytes # (Manual) 1.60 (1.00-4.80) 10^3/uL Monocytes # (Manual) 1.03 H (0.00-0.80) 10^3/uL Eosinophils # (Manual) 0.23 (0.00-0.45) 10^3/uL Platelet Estimate Adequate (ADEQUATE) Sodium 139 (136-145) mEq/L Potassium 3.9 (3.5-5.0) mEq/L Chloride 101 (98-106) mEq/L Carbon Dioxide 30 (21-32) mmol/L BUN 24 H (7-18) mg/dL Creatinine 1.0 (0.7-1.3) mg/dL Est Cr Clr Drug Dosing 86.56 mL/min Estimated GFR (MDRD) > 60 (>=60) mL/min Glucose 156 H D (75-99) mg/dL POC Glucose 46 L* (75-105) mg/dl Calcium 8.4 (8.4-10.1) mg/dL C-Reactive Protein 16.8 H (0.2-0.8) mg/dL CAROLANN Results - Last 24 hrs: Microbiology 11/20/18 19:20 Aerobic Blood Culture - Preliminary Blood - Venous - Lab Draw NO GROWTH AFTER 3 DAYS Anaerobic Blood Culture - Final 11/20/18 19:15 Aerobic Blood Culture - Preliminary Blood - Venous NO GROWTH AFTER 3 DAYS Anaerobic Blood Culture - Preliminary NO GROWTH AFTER 3 DAYS Med Orders - Current: Current Medications Acetaminophen (Tylenol) 650 mg PO Q4H PRN PRN Reason: Pain (Mild 1-3)/fever Last Admin: 11/22/18 19:46 Dose: 650 mg Hydrocodone Bitart/Acetaminophen ([place] 325-5 Mg) 2 tab PO Q4H PRN PRN Reason: Pain (moderate 4-6) Last Admin: 11/24/18 07:50 Dose: 2 tab Albuterol (Ventolin Hfa) 0 gm INH Q6H PRN PRN Reason: Dyspnea Albuterol/Ipratropium (Duoneb 3.0-0.5 Mg/3 Ml) 3 ml NEB Q6H PRN PRN Reason: Dyspnea Aspirin (Halfprin) 81 mg PO DAILY [facility] Last Admin: 11/24/18 07:50 Dose: 81 mg Budesonide (Pulmicort) 0.5 mg INH BID PRN PRN Reason: Shortness of Breath Bupropion HCl (Wellbutrin Xl) 75 mg PO DAILY [facility] Last Admin: 11/24/18 07:50 Dose: 75 mg Cholecalciferol (Vitamin D3) 25 mcg PO BID [facility] Last Admin: 11/24/18 07:49 Dose: 25 mcg Clopidogrel Bisulfate (Plavix) 75 mg PO DAILY [facility] Last Admin: 11/24/18 07:50 Dose: 75 mg Docusate Sodium (Colace) 100 mg PO BID PRN PRN Reason: Constipation Enoxaparin Sodium (Lovenox) 40 mg SUBCUT Q24H [facility] Last Admin: 11/23/18 19:47 Dose: 40 mg Furosemide (Lasix) 80 mg PO DAILY [facility] Last Admin: 11/24/18 07:50 Dose: 80 mg Gabapentin (Neurontin) 600 mg PO QAM [facility] Last Admin: 11/24/18 07:49 Dose: 600 mg Clindamycin Phosphate 300 mg/ (Premix) 50 mls @ 100 mls/hr IV Q6H [facility] Last Admin: 11/24/18 11:58 Dose: 100 mls/hr Sodium Chloride (Normal Saline) 1,000 mls @ 50 mls/hr IV ASDIRECTED [facility] Last Admin: 11/24/18 11:09 Dose: 50 mls/hr Ibuprofen (Motrin) 200 mg PO Q4H PRN PRN Reason: Pain Last Admin: 11/23/18 20:43 Dose: 200 mg Insulin Glargine (Lantus Solostar) [facility] Admin: 11/24/18 09:28 Dose: 75 unit Insulin Glargine (Lantus Solostar) 70 units SUBCUT QPM [facility] Last Admin: 11/23/18 20:02 Dose: 70 units Insulin Human Lispro (Humalog) [facility] Last Admin: 11/24/18 09:26 Dose: 70 unit Insulin Human Lispro (Humalog) 60 unit SUBCUT QPM [facility] Last Admin: 11/23/18 20:00 Dose: 60 units Lisinopril (Prinivil) 40 mg PO DAILY [facility] Last Admin: 11/24/18 07:49 Dose: 40 mg Magnesium Oxide (Magnesium Oxide) 500 mg PO BID [facility] Last Admin: 11/24/18 07:49 Dose: 500 mg Metformin HCl (Glucophage Xr) 1,000 mg PO BID [facility] Last Admin: 11/24/18 07:49 Dose: 1,000 mg Metoprolol Succinate (Toprol Xl) 100 mg PO QPM [facility] Last Admin: 11/23/18 19:50 Dose: 100 mg Mometasone Furoate/Formoterol Fumar (Dulera 100-5 Mcg) 2 puff IH BID [facility] Last Admin: 11/24/18 07:53 Dose: 2 puff Morphine Sulfate (Morphine) 2 mg IVPUSH Q2H PRN PRN Reason: Pain (severe 7-10) Last Admin: 11/20/18 20:50 Dose: 2 mg Multivitamins/Minerals/Vitamin C (Tab-A-Hector) 1 tab PO DAILY [facility] Last Admin: 11/24/18 07:49 Dose: 1 tab Ondansetron HCl (Zofran) 4 mg IV Q6H PRN PRN Reason: Nausea/Vomiting Pantoprazole Sodium (Protonix) 40 mg PO DAILY [facility] Last Admin: 11/24/18 07:48 Dose: 40 mg Temazepam (Restoril) 15 mg PO BEDTIME PRN PRN Reason: Sleep Discontinued Medications Acetaminophen (Tylenol Extra Strength) 1,000 mg PO ONETIME ONE Stop: 11/20/18 19:22 Last Admin: 11/20/18 19:39 Dose: 1,000 mg Cefazolin Sodium (Ancef) 1 gm IVPUSH Q6H [facility] Last Admin: 11/23/18 08:02 Dose: 1 gm Sodium Chloride (Normal Saline) 1,000 mls @ 75 mls/hr IV ASDIRECTED [facility] Stop: 11/21/18 12:00 Last Admin: 11/21/18 09:52 Dose: 75 mls/hr Sodium Chloride (Normal Saline) 1,000 mls @ 125 mls/hr IV ASDIRECTED [facility] Last Admin: 11/23/18 00:35 Dose: 125 mls/hr Ibuprofen (Motrin) 600 mg PO Q6H PRN PRN Reason: Pain (mild 1-3) Last Admin: 11/21/18 23:20 Dose: 600 mg Insulin Human Regular (Humulin R) 10 unit IV ONETIME ONE Stop: 11/20/18 20:00 Last Admin: 11/20/18 21:28 Dose: 10 units Morphine Sulfate (Morphine) 5 mg IVPUSH ONETIME ONE Stop: 11/20/18 19:06 Last Admin: 11/20/18 20:33 Dose: Not Given Morphine Sulfate (Morphine) 5 mg IM ONETIME ONE Stop: 11/20/18 19:29 Last Admin: 11/20/18 19:34 Dose: 5 mg Non-Formulary Medication (Areds 2) 1 tab PO DAILY [facility] Last Admin: 11/21/18 10:20 Dose: Not Given Non-Formulary Medication (Gabapentin) 900 mg PO BEDTIME [facility] Non-Formulary Medication (Glucosamine Hcl [Glucosamine]) 1,500 mg PO DAILY [facility] Last Admin: 11/21/18 10:20 Dose: Not Given Ondansetron HCl (Zofran) 4 mg IVPUSH NOW STA Stop: 11/20/18 19:06 Last Admin: 11/20/18 20:50 Dose: 4 mg - Exam General: Reports: Alert, Oriented HEENT: Reports: Mucous Membr. Moist/[place] Neck: Reports: Supple Lungs: Reports: Clear to Auscultation, Normal Respiratory Effort Cardiovascular: Reports: Regular Rate, Regular Rhythm GI/Abdominal Exam: Normal Bowel Sounds, Soft, Non-Tender Extremities: Leg Pain, Increased Warmth, Redness (redness improved to LLE, edema improved. ) Skin: Reports: Warm, Dry Wound/Incisions: Reports: Erythema Improving Neurological: Reports: No New Focal Deficit
[2018-11-24 12:41] VITALS: BP 144/62; PULSE 74
--- NOTE | 2018-11-30 10:28 | PCM.PN ---
- General Info Date of Service: 11/23/18 Admission Dx/Problem (Free Text): Cellulitis LLE Functional Status: Reports: Pain Controlled, Tolerating Diet, Ambulating - Review of Systems General: Reports: Fever, Weakness, Fatigue, Malaise HEENT: Reports: No Symptoms Pulmonary: Denies: Shortness of Breath, Cough Cardiovascular: Reports: Edema. Denies: Chest Pain, Lightheadedness Gastrointestinal: Denies: Abdominal Pain, Nausea, Vomiting Genitourinary: Reports: No Symptoms Musculoskeletal: Reports: Leg Pain Skin: Reports: Other (redness to LLE) Neurological: Reports: No Symptoms - Patient Data Vitals - Most Recent: Last Vital Signs Temp 96.9 F 11/24/18 12:00 Pulse 74 11/24/18 12:00 Resp 18 11/24/18 12:00 BP 144/62 H 11/24/18 12:00 Pulse Ox 96 11/24/18 12:00 Weight - Most Recent: 336 lb 14.4 oz Med Orders - Current: Current Medications Discontinued Medications Acetaminophen (Tylenol Extra Strength) 1,000 mg PO ONETIME ONE Stop: 11/20/18 19:22 Last Admin: 11/20/18 19:39 Dose: 1,000 mg Acetaminophen (Tylenol) 650 mg PO Q4H PRN PRN Reason: Pain (Mild 1-3)/fever Last Admin: 11/22/18 19:46 Dose: 650 mg Hydrocodone Bitart/Acetaminophen ([place] 325-5 Mg) 2 tab PO Q4H PRN PRN Reason: Pain (moderate 4-6) Last Admin: 11/24/18 07:50 Dose: 2 tab Albuterol (Ventolin Hfa) 0 gm INH Q6H PRN PRN Reason: Dyspnea Albuterol/Ipratropium (Duoneb 3.0-0.5 Mg/3 Ml) 3 ml NEB Q6H PRN PRN Reason: Dyspnea Aspirin (Halfprin) 81 mg PO DAILY [facility] Last Admin: 11/24/18 07:50 Dose: 81 mg Budesonide (Pulmicort) 0.5 mg INH BID PRN PRN Reason: Shortness of Breath Bupropion HCl (Wellbutrin Xl) 75 mg PO DAILY [facility] Last Admin: 11/24/18 07:50 Dose: 75 mg Cefazolin Sodium (Ancef) 1 gm IVPUSH Q6H [facility] Last Admin: 11/23/18 08:02 Dose: 1 gm Cholecalciferol (Vitamin D3) 25 mcg PO BID [facility] Last Admin: 11/24/18 07:49 Dose: 25 mcg Clopidogrel Bisulfate (Plavix) 75 mg PO DAILY [facility] Last Admin: 11/24/18 07:50 Dose: 75 mg Docusate Sodium (Colace) 100 mg PO BID PRN PRN Reason: Constipation Enoxaparin Sodium (Lovenox) 40 mg SUBCUT Q24H [facility] Last Admin: 11/23/18 19:47 Dose: 40 mg Furosemide (Lasix) 80 mg PO DAILY [facility] Last Admin: 11/24/18 07:50 Dose: 80 mg Gabapentin (Neurontin) 600 mg PO QAM [facility] Last Admin: 11/24/18 07:49 Dose: 600 mg Sodium Chloride (Normal Saline) 1,000 mls @ 75 mls/hr IV ASDIRECTED [facility] Stop: 11/21/18 12:00 Last Admin: 11/21/18 09:52 Dose: 75 mls/hr Sodium Chloride (Normal Saline) 1,000 mls @ 125 mls/hr IV ASDIRECTED [facility] Last Admin: 11/23/18 00:35 Dose: 125 mls/hr Clindamycin Phosphate 300 mg/ (Premix) 50 mls @ 100 mls/hr IV Q6H [facility] Last Admin: 11/24/18 11:58 Dose: 100 mls/hr Sodium Chloride (Normal Saline) 1,000 mls @ 50 mls/hr IV ASDIRECTED [facility] Last Admin: 11/24/18 11:09 Dose: 50 mls/hr Ibuprofen (Motrin) 600 mg PO Q6H PRN PRN Reason: Pain (mild 1-3) Last Admin: 11/21/18 23:20 Dose: 600 mg Ibuprofen (Motrin) 200 mg PO Q4H PRN PRN Reason: Pain Last Admin: 11/23/18 20:43 Dose: 200 mg Insulin Glargine (Lantus Solostar) 75 units SUBCUT QAM [facility] Last Admin: 11/24/18 09:28 Dose: 75 unit Insulin Glargine (Lantus Solostar) 70 units SUBCUT QPM [facility] Last Admin: 11/23/18 20:02 Dose: 70 units Insulin Human Lispro (Humalog) 70 unit SUBCUT QAM [facility] Last Admin: 11/24/18 09:26 Dose: 70 unit Insulin Human Lispro (Humalog) 60 unit SUBCUT QPM [facility] Last Admin: 11/23/18 20:00 Dose: 60 units Insulin Human Regular (Humulin R) 10 unit IV ONETIME ONE Stop: 11/20/18 20:00 Last Admin: 11/20/18 21:28 Dose: 10 units Lisinopril (Prinivil) 40 mg PO DAILY [facility] Last Admin: 11/24/18 07:49 Dose: 40 mg Magnesium Oxide (Magnesium Oxide) 500 mg PO BID [facility] Last Admin: 11/24/18 07:49 Dose: 500 mg Metformin HCl (Glucophage Xr) 1,000 mg PO BID [facility] Last Admin: 11/24/18 07:49 Dose: 1,000 mg Metoprolol Succinate (Toprol Xl) 100 mg PO QPM [facility] Last Admin: 11/23/18 19:50 Dose: 100 mg Mometasone Furoate/Formoterol Fumar (Dulera 100-5 Mcg) 2 puff IH BID [facility] Last Admin: 11/24/18 07:53 Dose: 2 puff Morphine Sulfate (Morphine) 5 mg IVPUSH ONETIME ONE Stop: 11/20/18 19:06 Last Admin: 11/20/18 20:33 Dose: Not Given Morphine Sulfate (Morphine) 5 mg IM ONETIME ONE Stop: 11/20/18 19:29 Last Admin: 11/20/18 19:34 Dose: 5 mg Morphine Sulfate (Morphine) 2 mg IVPUSH Q2H PRN PRN Reason: Pain (severe 7-10) Last Admin: 11/20/18 20:50 Dose: 2 mg Multivitamins/Minerals/Vitamin C (Tab-A-Hector) 1 tab PO DAILY [facility] Last Admin: 11/24/18 07:49 Dose: 1 tab Non-Formulary Medication (Areds 2) 1 tab PO DAILY [facility] Last Admin: 11/21/18 10:20 Dose: Not Given Non-Formulary Medication (Gabapentin) 900 mg PO BEDTIME [facility] Non-Formulary Medication (Glucosamine Hcl [Glucosamine]) 1,500 mg PO DAILY [facility] Last Admin: 11/21/18 10:20 Dose: Not Given Ondansetron HCl (Zofran) 4 mg IVPUSH NOW STA Stop: 11/20/18 19:06 Last Admin: 11/20/18 20:50 Dose: 4 mg Ondansetron HCl (Zofran) 4 mg IV Q6H PRN PRN Reason: Nausea/Vomiting Pantoprazole Sodium (Protonix) 40 mg PO DAILY [facility] Last Admin: 11/24/18 07:48 Dose: 40 mg Temazepam (Restoril) 15 mg PO BEDTIME PRN PRN Reason: Sleep - Exam General: Alert, Oriented HEENT: Mucous Membr. Moist/[place] Neck: Supple Lungs: Clear to Auscultation, Normal Respiratory Effort Cardiovascular: Regular Rate, Regular Rhythm GI/Abdominal Exam: Normal Bowel Sounds, Soft, Non-Tender Extremities: Pedal Edema (2-3+ to LLE) Skin: Warm, Dry Wound/Incisions: Erythema Neurological: No New Focal Deficit - Problem List & Annotations (1) Cellulitis of left lower extremity SNOMED Code(s): 966458683 Code(s): L03.116 - CELLULITIS OF LEFT LOWER LIMB Status: Acute Priority: High (2) Diabetes SNOMED Code(s): 08968174 Code(s): E11.9 - TYPE 2 DIABETES MELLITUS WITHOUT COMPLICATIONS Status: Chronic Priority: High Qualifiers: Diabetes mellitus type: type 2 Diabetes mellitus adjunct faculty for medical terminology insulin use: with adjunct faculty for medical terminology use Diabetes mellitus complication detail: with other kidney complication (3) Hypertension SNOMED Code(s): 51182742 Code(s): I10 - ESSENTIAL (PRIMARY) HYPERTENSION Status: Chronic Qualifiers: Hypertension type: essential hypertension Qualified Code(s): I10 - Essential (primary) hypertension - Problem List Review Problem List Initiated/Reviewed/Updated: Yes - Assessment Assessment:: Patient continues to have discomfort to LLE. States leg typically does not have much edema or redness. Does typically have venous stasis changes to right leg but left leg is clear. Per skin markings, redness has improved. Patient states less swelling today as well. Still warm. Had fevers yet last night. WBC still high today at 17.1. CRP increased to 30 today. Will continue with Ancef as is improving. Obtain venous insufficiency studies. Repeat labs in am. - Plan Plan:: Patient continues to have discomfort yet in his leg. Feels fatigued/tired today but admits did sleep well last night. Fever has decreased, low grade now. Blood pressure has been running low the last 12 hours, 80-90/60. Lisinopril held this am. Leg appears less warm today, swelling and redness unchanged. WBC slightly improved to 15.9. CRP increased to 31.9. Creatinine doubled today to 2.4 from 1.2 yesterday, BUN elevated at 36. Although blood cultures preliminarily show no growth, will add lactic acid today. Continue Ancef at this time. Start IV Normal saline at 125. Monitor blood pressure closely. Repeat labs in am. 11-23-2018 Patient does continue to have tenderness in LLE, especially with palpation. Fever last evening of 101.2. Left lower extremity redness, warmth and edema unchanged from yesterday. Labs improving WBC 10.6, CRP 26.3 . Creatinine now improved back to 1.4 after IV fluids. Will switch to IV Cleocin to see if better improvement/coverage of cellulitis. continue to monitor labs.
== END 2018-11-24 12:34 | disposition swing bed (61) | DRG 603 ==
LOC: CC.ED 18:58 → CC.MS 19:57 → UNDOADMIN 19:57 → CC.MS 20:01
PROVIDERS: ADMIT Nurse Practitioner; ATTEND Family Medicine
DX: L03.116 Cellulitis of left lower limb (principal); Z68.41 Body mass index [BMI] 40.0-44.9, adult; I87.8 Other specified disorders of veins; Z88.1 Allergy status to other antibiotic agents; Z79.02 Long term (current) use of antithrombotics/antiplatelets; Z79.82 Long term (current) use of aspirin; F32.9 Major depressive disorder, single episode, unspecified; E11.21 Type 2 diabetes mellitus with diabetic nephropathy; Z79.4 Long term (current) use of insulin; Z90.49 Acquired absence of other specified parts of digestive tract; Z98.52 Vasectomy status; Z79.899 Other long term (current) drug therapy; E78.00 Pure hypercholesterolemia, unspecified; Z95.5 Presence of coronary angioplasty implant and graft; J44.9 Chronic obstructive pulmonary disease, unspecified; I10 Essential (primary) hypertension; E11.42 Type 2 diabetes mellitus with diabetic polyneuropathy; E66.9 Obesity, unspecified; Z68.30 Body mass index [BMI] 30.0-30.9, adult; Z86.14 Personal history of Methicillin resistant Staphylococcus aureus infection
CPT/HCPCS: 36415; 80053; 83605; 83880; 85025; 86140; 87040 ×2; 96372; 99284; A9270; J2270; 80048; 82962; 94640; G0365; J0690; J1650; J1815; J1815-GY; J2405; J3490; J7030

== ENCOUNTER 2018-11-24 12:33 | Inpatient (IN) | payer MEDICARE, OTHER ==
[2018-11-24] MEDS ORDERED: Ondansetron 4 MG/2 ML SDV IV PRN (14:07)
[2018-11-24] MEDS ORDERED: Budesonide 0.5 MG/2 ML Neb Susp INH PRN (14:07)
[2018-11-24] MEDS ORDERED: Temazepam 15 MG Cap PO PRN (14:07)
[2018-11-24] MEDS ORDERED: Docusate Sodium 100 MG Cap PO PRN (14:07)
[2018-11-24] MEDS ORDERED: Ibuprofen 200 MG Tab PO PRN (14:07)
[2018-11-24] MEDS ORDERED: Morphine 2 MG/ML Syringe IVPUSH PRN (14:07)
[2018-11-24] MEDS ORDERED: Albuterol 8 GM Inhaler INH PRN (14:07)
[2018-11-24] MEDS ORDERED: Albuterol/Ipratropium 3.0-0.5 MG/3 ML Neb Soln NEB PRN (14:07)
[2018-11-24] MEDS ORDERED: Acetaminophen 325 MG Tab PO PRN (14:07)
[2018-11-24] MEDS: Clindamycin Phosphate in D5W 300 MG in Premix Bag 1 BAG IV SCH ×2 (18:15)
[2018-11-24] MEDS: metFORMIN 500 MG Tab.ER PO SCH (20:05)
[2018-11-24] MEDS: Enoxaparin 40 MG/0.4 ML Syringe SUBCUT SCH (20:08)
[2018-11-24] MEDS: Cholecalciferol (Vitamin D3) 25 MCG Tab PO SCH (20:09)
[2018-11-24] MEDS: Metoprolol Succinate 100 MG Tab.ER PO SCH (20:09)
[2018-11-24] MEDS: Acetaminophen/HYDROcodone 325-5 MG Tab PO PRN (20:10)
[2018-11-24] MEDS: Formoterol/Mometasone 100-5 MCG 8.8 GM Inhaler IH SCH (20:11)
[2018-11-24] MEDS: Insulin Lispro 100 Units/ML 3 ML Vial SUBCUT SCH (20:20)
[2018-11-24] MEDS: Insulin Glargine,Human Rec. Analog 100 Units/ML 3 ML Pen SUBCUT SCH (20:22)
[2018-11-25] MEDS: Clindamycin Phosphate in D5W 300 MG in Premix Bag 1 BAG IV SCH ×8 (00:07→17:30)
[2018-11-25] MEDS: Acetaminophen/HYDROcodone 325-5 MG Tab PO PRN ×4 (00:46→18:56)
[2018-11-25] MEDS: Pantoprazole 40 MG Tab.CR PO SCH (06:13)
[2018-11-25] MEDS: Cholecalciferol (Vitamin D3) 25 MCG Tab PO SCH ×2 (07:29→21:33)
[2018-11-25] MEDS: Lisinopril 20 MG Tab PO SCH (07:29)
[2018-11-25] MEDS: Aspirin 81 MG Tab.EC PO SCH (07:30)
[2018-11-25] MEDS: Multivitamin Tab PO SCH (07:30)
[2018-11-25] MEDS: Furosemide 80 MG Tab PO SCH (07:30)
[2018-11-25] MEDS: Gabapentin 300 MG Cap PO SCH (07:30)
[2018-11-25] MEDS: metFORMIN 500 MG Tab.ER PO SCH ×2 (07:31→21:31)
[2018-11-25] MEDS: Clopidogrel 75 MG Tab PO SCH (07:31)
[2018-11-25] MEDS: Formoterol/Mometasone 100-5 MCG 8.8 GM Inhaler IH SCH ×2 (07:34→21:32)
[2018-11-25] MEDS ORDERED: buPROPion 150 MG Tab.ER PO SCH (08:00)
[2018-11-25] MEDS: Insulin Lispro 100 Units/ML 3 ML Vial SUBCUT SCH ×2 (08:50→22:05)
[2018-11-25] MEDS: Insulin Glargine,Human Rec. Analog 100 Units/ML 3 ML Pen SUBCUT SCH ×2 (08:57→22:07)
[2018-11-25] MEDS ORDERED: Insulin Lispro 100 Units/ML 3 ML Vial SUBCUT ONE (09:00)
--- NOTE | 2018-11-25 11:08 | PCM.CONSBH ---
Hx. Present Illness - [facility] Date of Service: 11/25/18 Admit Problem/Dx: Admission Diagnosis/Problem Admission Diagnosis/Problem Cellulitis Source of Information: Reports: Patient, Family, Old Records History Limitations: Reports: No Limitations - History of Present Illness Onset of Symptoms: Reports: Gradual Duration of Symptoms: Reports: Chronic, Getting Worse Severity: Moderate Improves with: Reports: Medication Worsens with: Reports: Other (worsening health) Associated Symptoms: Reports: No Other Symptoms - Related Data Allergies/Adverse Reactions: Allergies Allergy/AdvReac Type Severity Reaction Status Date / Time vancomycin Allergy Intermediate Rash Verified 11/20/18 19:11 Home Medications: Home Meds Albuterol Sulfate [Proair Respiclick] 90 mcg IH Q6H PRN 04/08/15 [History] Aspirin [Adult Low Dose Aspirin EC] 81 mg PO DAILY 04/08/15 [History] Budesonide/Formoterol [Symbicort 160-4.5 MCG] 2 puff IH BID PRN 04/08/15 [ History] Cholecalciferol (Vitamin D3) [Vitamin D3] 1,000 unit PO BID 04/08/15 [History] Clopidogrel Bisulfate [Clopidogrel] 75 mg PO DAILY 04/08/15 [History] Furosemide 80 mg PO DAILY 04/08/15 [History] Gabapentin [Neurontin] 600 mg PO QAM 04/08/15 [History] Ibuprofen 1 tab PO TID PRN 04/08/15 [History] Insulin Aspart [NovoLOG] 70 unit SUBCUT QAM 04/08/15 [History] Insulin Glarg,Human.Rec.Analog [Lantus] 75 unit SQ QAM 04/08/15 [History] Ipratropium/Albuterol Sulfate [Iprat-Albut 0.5-3(2.5) mg/3 ml] 1 unit NEB Q6HR PRN 04/08/15 [History] Lisinopril 40 mg PO DAILY 04/08/15 [History] Magnesium Oxide 420 mg PO BID 04/08/15 [History] Multivitamin [Multi-Vitamin Daily] 1 tab PO DAILY 04/08/15 [History] Omeprazole 20 mg PO DAILY 04/08/15 [History] metFORMIN HCl [Metformin HCl] 1,000 mg PO BID 04/08/15 [History] Gabapentin [Neurontin] 900 mg PO BEDTIME 04/14/15 [History] Budesonide [Pulmicort Flexhaler] 2 puff IH BID PRN 03/12/16 [History] Insulin Aspart [NovoLOG] 60 unit SUBCUT QPM 03/12/16 [History] Insulin Glargine,Hum.Rec.Anlog [Lantus Solostar] 70 unit SQ QPM 03/12/16 [ History] Areds 2 1 tab PO DAILY 09/17/16 [History] Glucosamine HCl [Glucosamine] 1,500 mg PO DAILY 09/17/16 [History] Metoprolol Succinate 100 mg PO QPM 09/17/16 [History] buPROPion [Wellbutrin] 75 mg PO DAILY 11/20/18 [History] Past Medical Hx - Other EENT Hx: says he has a couple bad teeth Cardiovascular Hx: Reports: High Cholesterol, Hypertension, MA Other Respiratory Hx: pulm scraping in 2012 Gastrointestinal Hx: Reports: PUD Other Hx: vasEctomy Other Musculoskeletal Hx: needs bilateral knee replacements Neurological Hx: Reports: Peripheral Neuropathy Endocrine/Metabolic Hx: Reports: Diabetes, Type II, IDDM, Obesity/BMI 30+ Other Dermatologic Hx: ulcer to right leg Other Respiratory Surgical Hx: I had my lung scraped "what ever you call that" Social & Family History - - Tobacco Use Smoking Status *Q: Former Smoker Tobacco Use Within Last Twelve Months: Reports: No - Alcohol Use Alcohol Use History: No - Living Situation & Occupation Occupation: Disabled Review of Systems - - Review of Systems: Review Of Systems: See Below General: Reports: Fatigue Musculoskeletal: Reports: Other (muscle tension) Psychiatric: Reports: Depression (reports low mood which has worsened with hospitalization. he feels as if there has been no improvement to his leg. Reports feeling frustrated.), Agitation (patient reports increased irritability. he notices that he gets annoyed easil.). Denies: Confusion, Mood Lability, Anxiety, Hallucinations, Suicidal Ideation, Homicidal Ideation, Hallucinations (Auditory), Hallucinations (Visual) Exam - - Exam Exam: See Below - Vital Signs Vital Signs: Last Vital Signs Temp 37.1 C 11/25/18 07:35 Pulse 60 11/25/18 07:35 Resp 18 11/25/18 07:35 BP 132/71 11/25/18 07:35 Pulse Ox 98 11/25/18 07:35 - Exam Psychiatric: Alert, Normal Affect, Depressed. No: Labile Mood, Anxious, Agitated, Suicidal Ideation, Homicidal Ideation, Hallucinations, Withdrawal Symptoms - Kinsey I, II, III (1) Depression Kinsey: Kinsey I SNOMED Code(s): 14837953 ICD Code: F32.9 - MAJOR DEPRESSIVE DISORDER, SINGLE EPISODE, UNSPECIFIED Status: Acute Current Visit: Yes Problem Details: Patient reports worsening depression over the last six months. He reached out to primary care because he felt as if he had not control over anything. "Everything was going haywire." Patient hospitalized 5 days ago due to cellulitis to right light and since hospitalization patient reports feeling more down. He feels frustrated and that his leg will not get better. The patient does not feel that this hospitalization has been productive. reports patient has been more irritable, angry, and on edge. Patient reports poor sleep, feeling anxious, increased muscle tension, fatigue and depressed over the last several weeks. Denies any SI, HI, delusions or hallucinations. Qualifiers: Depression Type: major depressive disorder Major depression recurrence: recurrent Active/Remission status: currently active Major depression episode severity: moderate Qualified Code(s): F33.1 - Major depressive disorder, recurrent, moderate - Plan FREE TEXT/NARRATIVE: Recommend discontinuing Wellbutrin 75 mg. Start Viibryd 10 mg for 7 days then increase to 20 mg daily. Follow up with undersigned for depression after discharge from [facility]. - Orders Orders Last 24hrs: Active Orders 24 hr Category Date Time Status Patient Status [ADT] Routine ADT 11/24/18 14:07 Active Blood Glucose Check, Bedside [] 0730,1130,1700,2030 Care 11/24/18 14:07 Active Oxygen Therapy [RC] PRN Care 11/24/18 14:07 Active RT Aerosol Therapy [RC] Care 11/24/18 14:07 Active Up With Assistance [RC] .PRN Care 11/24/18 14:07 Active Vital Signs [RC] Care 11/24/18 14:07 Active Acetaminophen [Tylenol] Med 11/24/18 14:07 Active 650 mg PO Q4H PRN Acetaminophen/HYDROcodone [[place] 325-5 MG] Med 11/24/18 14:07 Active 2 tab PO Q4H PRN Albuterol [Ventolin HFA] Med 11/24/18 14:07 Active 0 gm INH Q6H PRN Albuterol/Ipratropium [DuoNeb 3.0-0.5 MG/3 ML] Med 11/24/18 14:07 Active 3 ml NEB Q6H PRN Aspirin [Halfprin] Med 11/25/18 08:00 Active 81 mg PO DAILY Budesonide [Pulmicort] Med 11/24/18 14:07 Active 0.5 mg INH BID PRN Cholecalciferol (Vitamin D3) [Vitamin D3] Med 11/24/18 20:00 Active 25 mcg PO BID Clindamycin Phosphate in D5W [Cleocin in D5W] 300 mg Med 11/24/18 18:00 Active Premix Bag 1 bag IV Q6H Clopidogrel [Plavix] Med 11/25/18 08:00 Active 75 mg PO DAILY Docusate Sodium [Colace] Med 11/24/18 14:07 Active 100 mg PO BID PRN Enoxaparin [Lovenox] Med 11/24/18 20:00 Active 40 mg SUBCUT Q24H Furosemide [Lasix] Med 11/25/18 08:00 Active 80 mg PO DAILY Gabapentin [Neurontin] Med 11/25/18 08:00 Active 600 mg PO QAM Ibuprofen [Motrin] Med 11/24/18 14:07 Active 200 mg PO Q4H PRN Insulin Glarg,Human.Rec.Analog [LantUS Solostar] Med 11/24/18 20:00 Active 70 units SUBCUT QPM Insulin Glarg,Human.Rec.Analog [LantUS Solostar] Med 11/25/18 08:00 Active 75 units SUBCUT QAM Insulin Lispro [HumaLOG] Med 11/24/18 20:00 Active 60 unit SUBCUT QPM Insulin Lispro [HumaLOG] Med 11/25/18 08:00 Hold 70 unit SUBCUT QAM Lisinopril [Prinivil] Med 11/25/18 08:00 Active 40 mg PO DAILY Magnesium Oxide Med 11/24/18 20:00 Active 500 mg PO BID Metoprolol Succinate [Toprol XL] Med 11/24/18 20:00 Active 100 mg PO QPM Mometasone/Formoterol [Dulera 100-5 MCG] Med 11/24/18 20:00 Active 2 puff IH BID Morphine Med 11/24/18 14:07 Active 2 mg IVPUSH Q2H PRN Multivitamins [Tab-A-Hector] Med 11/25/18 08:00 Active 1 tab PO DAILY Ondansetron [Zofran] Med 11/24/18 14:07 Active 4 mg IV Q6H PRN Pantoprazole [ProTONIX] Med 11/25/18 07:00 Active 40 mg PO ACBREAKFAST Sodium Chloride 0.9% [Normal Saline] 1,000 ml Med 11/24/18 14:07 Active IV ASDIRECTED Temazepam [Restoril] Med 11/24/18 14:07 Active 15 mg PO BEDTIME PRN buPROPion [Wellbutrin XL] Med 11/25/18 08:00 Active 75 mg PO DAILY metFORMIN [Glucophage XR] Med 11/24/18 20:00 Active 1,000 mg PO BID Antiembolic Hose [OM.PC] Per Unit Routine Oth 11/24/18 14:07 Ordered Medication Orders Acetaminophen (Tylenol) 650 mg PO Q4H PRN PRN Reason: Pain (Mild 1-3)/fever Hydrocodone Bitart/Acetaminophen ([place] 325-5 Mg) 2 tab PO Q4H PRN PRN Reason: Pain (moderate 4-6) Last Admin: 11/25/18 07:29 Dose: 2 tab Admin: 11/25/18 00:46 Dose: 2 tab Admin: 11/24/18 20:10 Dose: 2 tab Albuterol (Ventolin Hfa) 0 gm INH Q6H PRN PRN Reason: Dyspnea Albuterol/Ipratropium (Duoneb 3.0-0.5 Mg/3 Ml) 3 ml NEB Q6H PRN PRN Reason: Dyspnea Aspirin (Halfprin) 81 mg PO DAILY [facility] Last Admin: 11/25/18 07:30 Dose: 81 mg Budesonide (Pulmicort) 0.5 mg INH BID PRN PRN Reason: Shortness of Breath Bupropion HCl (Wellbutrin Xl) 75 mg PO DAILY [facility] Last Admin: 11/25/18 07:30 Dose: 75 mg Cholecalciferol (Vitamin D3) 25 mcg PO BID [facility] Last Admin: 11/25/18 07:29 Dose: 25 mcg Admin: 11/24/18 20:09 Dose: 25 mcg Clopidogrel Bisulfate (Plavix) 75 mg PO DAILY [facility] Last Admin: 11/25/18 07:31 Dose: 75 mg Docusate Sodium (Colace) 100 mg PO BID PRN PRN Reason: Constipation Enoxaparin Sodium (Lovenox) 40 mg SUBCUT Q24H [facility] Last Admin: 11/24/18 20:08 Dose: 40 mg Furosemide (Lasix) 80 mg PO DAILY [facility] Last Admin: 11/25/18 07:30 Dose: 80 mg Gabapentin (Neurontin) 600 mg PO QAM [facility] Last Admin: 11/25/18 07:30 Dose: 600 mg Clindamycin Phosphate 300 mg/ (Premix) 50 mls @ 100 mls/hr IV Q6H [facility] Last Admin: 11/25/18 06:10 Dose: 100 mls/hr Infusion: 11/25/18 00:37 Dose: 100 mls/hr Admin: 11/25/18 00:07 Dose: 100 mls/hr Infusion: 11/24/18 18:45 Dose: 100 mls/hr Admin: 11/24/18 18:15 Dose: 100 mls/hr Sodium Chloride (Normal Saline) 1,000 mls @ 50 mls/hr IV ASDIRECTED [facility] Ibuprofen (Motrin) 200 mg PO Q4H PRN PRN Reason: Pain Last Admin: 11/24/18 20:50 Dose: 200 mg Insulin Glargine (Lantus Solostar) [facility] Last Admin: 11/25/18 08:57 Dose: 75 units Insulin Glargine (Lantus Solostar) 70 units SUBCUT QPM [facility] Last Admin: 11/24/18 20:22 Dose: 70 units Insulin Human Lispro (Humalog) 70 unit SUBCUT QAM [facility] Last Admin: 11/25/18 08:50 Dose: Insulin Human Lispro (Humalog) 60 unit SUBCUT QPM [facility] Last Admin: 11/24/18 20:20 Dose: 60 units Lisinopril (Prinivil) 40 mg PO DAILY [facility] Last Admin: 11/25/18 07:29 Dose: 40 mg Magnesium Oxide (Magnesium Oxide) 500 mg PO BID [facility] Last Admin: 11/25/18 07:31 Dose: 500 mg Admin: 11/24/18 20:08 Dose: 500 mg Metformin HCl (Glucophage Xr) 1,000 mg PO BID [facility] Last Admin: 11/25/18 07:31 Dose: 1,000 mg Admin: 11/24/18 20:05 Dose: 1,000 mg Metoprolol Succinate (Toprol Xl) 100 mg PO QPM [facility] Last Admin: 11/24/18 20:09 Dose: 100 mg Mometasone Furoate/Formoterol Fumar (Dulera 100-5 Mcg) 2 puff IH BID [facility] Last Admin: 11/25/18 07:34 Dose: 2 puff Admin: 11/24/18 20:11 Dose: 2 puff Morphine Sulfate (Morphine) 2 mg IVPUSH Q2H PRN PRN Reason: Pain (severe 7-10) Multivitamins/Minerals/Vitamin C (Tab-A-Hector) 1 tab PO DAILY [facility] Last Admin: 11/25/18 07:30 Dose: 1 tab Ondansetron HCl (Zofran) 4 mg IV Q6H PRN PRN Reason: Nausea/Vomiting Pantoprazole Sodium (Protonix) 40 mg PO ACBREAKFAST [facility] Last Admin: 11/25/18 06:13 Dose: 40 mg Temazepam (Restoril) 15 mg PO BEDTIME PRN PRN Reason: Sleep TeleHealth - TeleHealth Patient Service Facility: [facility]: [facility]
[2018-11-25] MEDS: Sodium Chloride 0.9% 1,000 ML IV SCH (11:30)
[2018-11-25] MEDS: Metoprolol Succinate 100 MG Tab.ER PO SCH (21:32)
[2018-11-25] MEDS: Enoxaparin 40 MG/0.4 ML Syringe SUBCUT SCH (21:32)
[2018-11-26] MEDS: Sodium Chloride 0.9% 1,000 ML IV SCH (02:18)
[2018-11-26] MEDS: Acetaminophen/HYDROcodone 325-5 MG Tab PO PRN ×3 (02:19→17:31)
[2018-11-26] MEDS: Clindamycin Phosphate in D5W 300 MG in Premix Bag 1 BAG IV SCH ×8 (02:20→18:41)
--- NOTE | 2018-11-26 02:53 | PCM.PRNOTE ---
- Free Text/Narrative Note: the pts IV came out and the nurses tried multiple times and was not able to access the pt, I attempted x 2 without success. I called [facility] and spoke with the PRODUCT SUPPORT SALES REPRESENTATIVE and she advised they do not insert PIC lines on the weekends. This pt has cellulitis of the lower ext, has had an elevated lactic acid and renal insufficiency , the pt is getting IV fluids and IV antibiotics, I discussed the possibility of a central line and after discussing this with the pt and providing the R/B and S/E of having and not having a central line the pt agreed. Verbal and written consent was obtained, The pt was placed in Trendelenburg position, the left neck was prepped with chlorhexidine, the pt was draped in the usual fashion, following sterile technique and using US guidance, a triple lumen cath was placed in the Left IJ x 1 attempt without problems, the lines were aspirated for blood and flushed with NS, the line was sutured in place and a sterile dressing applied, a CXR confirmed placement, the catheter is flush with the skin, it is in place but 2cm more would be more idea , no pneumothorax noted.
[2018-11-26] MEDS: Pantoprazole 40 MG Tab.CR PO SCH (06:58)
[2018-11-26] MEDS: Aspirin 81 MG Tab.EC PO SCH (07:03)
[2018-11-26] MEDS: Clopidogrel 75 MG Tab PO SCH (07:04)
[2018-11-26] MEDS: Furosemide 80 MG Tab PO SCH (07:04)
[2018-11-26] MEDS: metFORMIN 500 MG Tab.ER PO SCH ×2 (07:04→20:08)
[2018-11-26] MEDS: Lisinopril 20 MG Tab PO SCH (07:05)
[2018-11-26] MEDS: Cholecalciferol (Vitamin D3) 25 MCG Tab PO SCH ×2 (07:05→20:08)
[2018-11-26] MEDS: Gabapentin 300 MG Cap PO SCH (07:05)
[2018-11-26] MEDS: Multivitamin Tab PO SCH (07:05)
[2018-11-26] MEDS: VILAZODONE 10 MG PO SCH (07:06)
[2018-11-26] MEDS: Formoterol/Mometasone 100-5 MCG 8.8 GM Inhaler IH SCH ×2 (07:08→20:09)
[2018-11-26 08:13] LABS: CHLORIDE,CL 102 mEq/L (98-106)
[2018-11-26] MEDS: Insulin Glargine,Human Rec. Analog 100 Units/ML 3 ML Pen SUBCUT SCH ×2 (08:13→22:12)
[2018-11-26] MEDS: Insulin Lispro 100 Units/ML 3 ML Vial SUBCUT SCH ×2 (08:17→22:19)
[2018-11-26 08:20] LABS: SODIUM,NA 140 mEq/L (136-145)
[2018-11-26] MEDS ORDERED: Sodium Chloride 0.9% 10 ML Syringe FLUSH PRN (09:19)
--- NOTE | 2018-11-26 09:24 | PCM.PN ---
- General Info Date of Service: 11/26/18 - Review of Systems General: Reports: No Symptoms. Denies: Fever HEENT: Reports: No Symptoms Pulmonary: Reports: No Symptoms Cardiovascular: Reports: No Symptoms Gastrointestinal: Reports: No Symptoms Genitourinary: Reports: No Symptoms Skin: Reports: Other (redness lower ext) - Patient Data Vitals - Most Recent: Last Vital Signs Temp 37.1 C 11/26/18 07:12 Pulse 75 11/26/18 07:12 Resp 18 11/26/18 07:12 BP 121/60 11/26/18 07:12 Pulse Ox 97 11/26/18 07:12 Weight - Most Recent: 153.405 kg I&O - Last 24 Hours: Intake & Output 11/25/18 11/26/18 11/26/18 22:59 06:59 14:59 Intake Total 50 790 Balance 50 790 Lab Results Last 24 Hours: Laboratory Results - last 24 hr 11/25/18 11/25/18 11/25/18 Range/Units 11:57 17:29 20:48 Sodium (136-145) mEq/L Potassium (3.5-5.0) mEq/L Chloride (98-106) mEq/L Carbon Dioxide (21-32) mmol/L BUN (7-18) mg/dL Creatinine (0.7-1.3) mg/dL Est Cr Clr Drug Dosing mL/min Estimated GFR (MDRD) (>=60) mL/min Glucose (75-99) mg/dL POC Glucose 113 H 108 H 195 H (75-105) mg/dl Calcium (8.4-10.1) mg/dL 11/26/18 11/26/18 Range/Units 04:17 07:41 Sodium 140 (136-145) mEq/L Potassium 4.1 (3.5-5.0) mEq/L Chloride 102 (98-106) mEq/L Carbon Dioxide 31 (21-32) mmol/L BUN 15 (7-18) mg/dL Creatinine 0.9 (0.7-1.3) mg/dL Est Cr Clr Drug Dosing 96.18 mL/min Estimated GFR (MDRD) > 60 (>=60) mL/min Glucose 153 H (75-99) mg/dL POC Glucose 143 H (75-105) mg/dl Calcium 8.4 (8.4-10.1) mg/dL Med Orders - Current: Current Medications Acetaminophen (Tylenol) 650 mg PO Q4H PRN PRN Reason: Pain (Mild 1-3)/fever Hydrocodone Bitart/Acetaminophen ([place] 325-5 Mg) 2 tab PO Q4H PRN PRN Reason: Pain (moderate 4-6) Last Admin: 11/26/18 07:05 Dose: 2 tab Albuterol (Ventolin Hfa) 0 gm INH Q6H PRN PRN Reason: Dyspnea Albuterol/Ipratropium (Duoneb 3.0-0.5 Mg/3 Ml) 3 ml NEB Q6H PRN PRN Reason: Dyspnea Aspirin (Halfprin) 81 mg PO DAILY [facility] Last Admin: 11/26/18 07:03 Dose: 81 mg Budesonide (Pulmicort) 0.5 mg INH BID PRN PRN Reason: Shortness of Breath Cholecalciferol (Vitamin D3) 25 mcg PO BID [facility] Last Admin: 11/26/18 07:05 Dose: 25 mcg Clopidogrel Bisulfate (Plavix) 75 mg PO DAILY [facility] Last Admin: 11/26/18 07:04 Dose: 75 mg Docusate Sodium (Colace) 100 mg PO BID PRN PRN Reason: Constipation Enoxaparin Sodium (Lovenox) 40 mg SUBCUT Q24H [facility] Last Admin: 11/25/18 21:32 Dose: 40 mg Furosemide (Lasix) 80 mg PO DAILY [facility] Last Admin: 11/26/18 07:04 Dose: 80 mg Gabapentin (Neurontin) 600 mg PO QAM [facility] Last Admin: 11/26/18 07:05 Dose: 600 mg Clindamycin Phosphate 300 mg/ (Premix) 50 mls @ 100 mls/hr IV Q6H [facility] Last Admin: 11/26/18 07:07 Dose: 100 mls/hr Sodium Chloride (Normal Saline) 1,000 mls @ 50 mls/hr IV ASDIRECTED [facility] Last Admin: 11/26/18 02:18 Dose: 50 mls/hr Ibuprofen (Motrin) 200 mg PO Q4H PRN PRN Reason: Pain Last Admin: 11/24/18 20:50 Dose: 200 mg Insulin Glargine (Lantus Solostar) 75 units SUBCUT [facility] Last Admin: 11/26/18 08:13 Dose: 75 units Insulin Glargine (Lantus Solostar) 70 units SUBCUT QPM [facility] Last Admin: 11/25/18 22:07 Dose: 35 units Insulin Human Lispro (Humalog) 70 unit SUBCUT QAM [facility] Last Admin: 11/26/18 08:17 Dose: 70 unit Insulin Human Lispro (Humalog) 60 unit SUBCUT QPM [facility] Last Admin: 11/25/18 22:05 Dose: Not Given Lisinopril (Prinivil) 40 mg PO DAILY [facility] Last Admin: 11/26/18 07:05 Dose: 40 mg Magnesium Oxide (Magnesium Oxide) 500 mg PO BID [facility] Last Admin: 11/26/18 07:04 Dose: 500 mg Metformin HCl (Glucophage Xr) 1,000 mg PO BID [facility] Last Admin: 11/26/18 07:04 Dose: 1,000 mg Metoprolol Succinate (Toprol Xl) 100 mg PO QPM [facility] Last Admin: 11/25/18 21:32 Dose: 100 mg Mometasone Furoate/Formoterol Fumar (Dulera 100-5 Mcg) 2 puff IH BID [facility] Last Admin: 11/26/18 07:08 Dose: 2 puff Morphine Sulfate (Morphine) 2 mg IVPUSH Q2H PRN PRN Reason: Pain (severe 7-10) Multivitamins/Minerals/Vitamin C (Tab-A-Hector) 1 tab PO DAILY [facility] Last Admin: 11/26/18 07:05 Dose: 1 tab Ptom Vilazodone ([Viibryd] 10mg Tab) 10 mg PO DAILY [facility] Last Admin: 11/26/18 07:06 Dose: 10 mg Ondansetron HCl (Zofran) 4 mg IV Q6H PRN PRN Reason: Nausea/Vomiting Pantoprazole Sodium (Protonix) 40 mg PO ACBREAKFAST [facility] Last Admin: 11/26/18 06:58 Dose: 40 mg Sodium Chloride (Saline Flush) 10 ml FLUSH ASDIRECTED PRN PRN Reason: Keep Vein Open Temazepam (Restoril) 15 mg PO BEDTIME PRN PRN Reason: Sleep Discontinued Medications Bupropion HCl (Wellbutrin Xl) 75 mg PO DAILY [facility] Last Admin: 11/25/18 07:30 Dose: 75 mg Heparin Sodium (Porcine) (Heparin Lock Flush 100 Units/Ml) Confirm Administered Dose 1,500 units .ROUTE .STK-MED ONE Stop: 11/26/18 01:49 Last Admin: 11/26/18 03:04 Dose: Not Given Insulin Human Lispro (Humalog) 35 unit SUBCUT ONETIME ONE Stop: 11/25/18 09:01 Last Admin: 11/25/18 08:52 Dose: 35 units - Exam General: Alert, Oriented Neck: Supple Lungs: Clear to Auscultation, Normal Respiratory Effort Cardiovascular: Regular Rate, Regular Rhythm GI/Abdominal Exam: Soft, Non-Tender Back Exam: Normal Inspection, Full Range of Motion Extremities: Normal Range of Motion, Normal Capillary Refill, Other ( cellulitiswer ext) Peripheral Pulses: 2+: Radial (L), Radial (R), Dorsalis Pedis (L), Dorsalis Pedis (R) Skin: Warm, Dry, Intact Neurological: No New Focal Deficit Psy/Mental Status: Alert, Normal Affect, Normal Mood - Problem List & Annotations (1) Cellulitis of left lower extremity SNOMED Code(s): 237095330 Code(s): L03.116 - CELLULITIS OF LEFT LOWER LIMB Status: Acute Priority: High Current Visit: No - Problem List Review Problem List Initiated/Reviewed/Updated: Yes - My Orders Last 24 Hours: My Active Orders 11/26/18 Chest 1V Frontal [CR] Routine 11/26/18 09:19 Sodium Chloride 0.9% [Saline Flush] 10 ml FLUSH ASDIRECTED PRN Convert IV to Saline Lock [OM.PC] Routine - Plan Plan:: will DC IV fluids, renal function is normal, pt is drinking fluids well, will do routine flushes for central line per police and continue IV antibiotics, will plan to schedule PIC line if will need extended days of IV antibx, tx plan will be monitored and adjusted by James Solitario PA-c and Dr. Hampton
[2018-11-26] MEDS: Enoxaparin 40 MG/0.4 ML Syringe SUBCUT SCH (20:07)
[2018-11-26] MEDS: Metoprolol Succinate 100 MG Tab.ER PO SCH (20:07)
[2018-11-26] MEDS ORDERED: Insulin Lispro 100 Units/ML 3 ML Vial SUBCUT ONE (23:30)
[2018-11-27] MEDS: Clindamycin Phosphate in D5W 300 MG in Premix Bag 1 BAG IV SCH ×8 (00:17→18:42)
[2018-11-27] MEDS: Acetaminophen/HYDROcodone 325-5 MG Tab PO PRN ×4 (04:15→21:07)
[2018-11-27] MEDS: Formoterol/Mometasone 100-5 MCG 8.8 GM Inhaler IH SCH ×2 (08:24→20:54)
[2018-11-27] MEDS: Lisinopril 20 MG Tab PO SCH (08:24)
[2018-11-27] MEDS: metFORMIN 500 MG Tab.ER PO SCH ×2 (08:27→20:45)
[2018-11-27] MEDS: Gabapentin 300 MG Cap PO SCH (08:27)
[2018-11-27] MEDS: Aspirin 81 MG Tab.EC PO SCH (08:28)
[2018-11-27] MEDS: Clopidogrel 75 MG Tab PO SCH (08:28)
[2018-11-27] MEDS: Pantoprazole 40 MG Tab.CR PO SCH (08:28)
[2018-11-27] MEDS: Furosemide 80 MG Tab PO SCH (08:28)
[2018-11-27] MEDS: Multivitamin Tab PO SCH (08:28)
[2018-11-27] MEDS: VILAZODONE 10 MG PO SCH (08:29)
[2018-11-27] MEDS: Cholecalciferol (Vitamin D3) 25 MCG Tab PO SCH ×2 (08:29→20:45)
[2018-11-27] MEDS: Insulin Glargine,Human Rec. Analog 100 Units/ML 3 ML Pen SUBCUT SCH ×2 (08:34→20:53)
[2018-11-27] MEDS: Insulin Lispro 100 Units/ML 3 ML Vial SUBCUT SCH ×2 (08:35→20:53)
[2018-11-27] MEDS: Enoxaparin 40 MG/0.4 ML Syringe SUBCUT SCH (20:44)
[2018-11-27] MEDS: Metoprolol Succinate 100 MG Tab.ER PO SCH (20:45)
[2018-11-27] MEDS ORDERED: Insulin Lispro 100 Units/ML 3 ML Vial SUBCUT ONE (22:30)
[2018-11-28] MEDS: Clindamycin Phosphate in D5W 300 MG in Premix Bag 1 BAG IV SCH ×10 (00:06→23:52)
[2018-11-28] MEDS: Pantoprazole 40 MG Tab.CR PO SCH (06:09)
[2018-11-28] MEDS: Acetaminophen/HYDROcodone 325-5 MG Tab PO PRN ×2 (06:11→18:37)
[2018-11-28] MEDS: Insulin Lispro 100 Units/ML 3 ML Vial SUBCUT SCH ×5 (08:35→18:41)
[2018-11-28] MEDS: Clopidogrel 75 MG Tab PO SCH (08:45)
[2018-11-28] MEDS: Lisinopril 20 MG Tab PO SCH (08:46)
[2018-11-28] MEDS: Furosemide 80 MG Tab PO SCH (08:46)
[2018-11-28] MEDS: Aspirin 81 MG Tab.EC PO SCH (08:46)
[2018-11-28] MEDS: metFORMIN 500 MG Tab.ER PO SCH ×2 (08:46→20:18)
[2018-11-28] MEDS: Multivitamin Tab PO SCH (08:46)
[2018-11-28] MEDS: Gabapentin 300 MG Cap PO SCH (08:47)
[2018-11-28] MEDS: Cholecalciferol (Vitamin D3) 25 MCG Tab PO SCH ×2 (08:47→20:18)
[2018-11-28] MEDS: VILAZODONE 10 MG PO SCH (08:50)
[2018-11-28 09:27] LABS: CHLORIDE,CL 103 mEq/L (98-106); SODIUM,NA 140 mEq/L (136-145)
[2018-11-28] MEDS: Formoterol/Mometasone 100-5 MCG 8.8 GM Inhaler IH SCH ×2 (09:34→20:17)
[2018-11-28] MEDS: Insulin Glargine,Human Rec. Analog 100 Units/ML 3 ML Pen SUBCUT SCH ×2 (09:35→20:47)
[2018-11-28] MEDS: Enoxaparin 40 MG/0.4 ML Syringe SUBCUT SCH (20:16)
[2018-11-28] MEDS: Metoprolol Succinate 100 MG Tab.ER PO SCH (20:19)
[2018-11-29] MEDS: Clindamycin Phosphate in D5W 300 MG in Premix Bag 1 BAG IV SCH ×2 (06:01)
[2018-11-29] MEDS: Pantoprazole 40 MG Tab.CR PO SCH (06:01)
[2018-11-29] MEDS: Clopidogrel 75 MG Tab PO SCH (07:36)
[2018-11-29] MEDS: Lisinopril 20 MG Tab PO SCH (07:36)
[2018-11-29] MEDS: metFORMIN 500 MG Tab.ER PO SCH (07:36)
[2018-11-29] MEDS: Multivitamin Tab PO SCH (07:37)
[2018-11-29] MEDS: Gabapentin 300 MG Cap PO SCH (07:37)
[2018-11-29] MEDS: Aspirin 81 MG Tab.EC PO SCH (07:37)
[2018-11-29] MEDS: Furosemide 80 MG Tab PO SCH (07:37)
[2018-11-29] MEDS: VILAZODONE 10 MG PO SCH (07:38)
[2018-11-29] MEDS: Insulin Lispro 100 Units/ML 3 ML Vial SUBCUT SCH ×2 (07:39→07:41)
[2018-11-29] MEDS: Formoterol/Mometasone 100-5 MCG 8.8 GM Inhaler IH SCH (07:40)
[2018-11-29] MEDS: Insulin Glargine,Human Rec. Analog 100 Units/ML 3 ML Pen SUBCUT SCH (07:50)
[2018-11-29 07:52] VITALS: BP 155/84
[2018-11-29 09:16] VITALS: PULSE 59
--- NOTE | 2018-11-29 21:24 | PCM.DCSUM1 ---
Discharge Summary - Hospital Course Free Text/Narrative:: Patient admitted for cellulitis of left lower extremity, transferred to swing bed for ongoing IV antibiotics. Initially was placed on Ancef but did not show great improvement with that. Did have issues with acute changes of kidney function, creatinine spiked up to 2.4. WAs given IV fluids and creatinine decreased to 1.2. Blood sugars have been variable, running low while on his usual dose of insulin. Reduced to 25 units TID and continued usual dose of Lantus. As redness and swelling was not improving, was switched to IV Cleocin. WBC steadily improving as well as CRP during acute stay. Diagnosis: Stroke: No Modified [place] Scale: No Symptoms at All Modified Dileep Scale Score: 0 - Discharge Data Discharge Date: 11/29/18 Discharge Disposition: Home, Self-Care 01 Condition: Fair - Patient Summary/Data Complications: none Hospital Course: Patient doing well. Has had slow improvement of leg. REdness persists yet has had improvement of swelling, warmth and pain. Is now afebrile. AMbulating without difficulty. WBC down to 12, CRP 7.4. Blood sugars stable. Will discharge home. Continue oral Cleocin. Follow up at the [facility] as previously scheduled. - Patient Instructions Diet: Diabetic Diet Activity: As Tolerated - Discharge Plan *PRESCRIPTION DRUG MONITORING PROGRAM REVIEWED*: No *COPY OF PRESCRIPTION DRUG MONITORING REPORT IN PATIENT ELDA: No Prescriptions/Med Rec: Clindamycin HCl [Cleocin HCl] 300 mg PO DAILY #40 capsule Home Medications: Home Meds Albuterol Sulfate [Proair Respiclick] 90 mcg IH Q6H PRN 04/08/15 [History] Aspirin [Adult Low Dose Aspirin EC] 81 mg PO DAILY 04/08/15 [History] Cholecalciferol (Vitamin D3) [Vitamin D3] 1,000 unit PO BID 04/08/15 [History] Clopidogrel Bisulfate [Clopidogrel] 75 mg PO DAILY 04/08/15 [History] Furosemide 80 mg PO DAILY 04/08/15 [History] Gabapentin [Neurontin] 600 mg PO QAM 04/08/15 [History] Ibuprofen 1 tab PO TID PRN 04/08/15 [History] Insulin Aspart [NovoLOG] 70 unit SUBCUT QAM 04/08/15 [History] Insulin Glarg,Human.Rec.Analog [Lantus] 70 unit SQ QAM 04/08/15 [History] Ipratropium/Albuterol Sulfate [Iprat-Albut 0.5-3(2.5) mg/3 ml] 1 unit NEB Q6HR PRN 04/08/15 [History] Lisinopril 40 mg PO DAILY 04/08/15 [History] Magnesium Oxide 420 mg PO BID 04/08/15 [History] Multivitamin [Multi-Vitamin Daily] 1 tab PO DAILY 04/08/15 [History] Omeprazole 20 mg PO DAILY 04/08/15 [History] metFORMIN HCl [Metformin HCl] 1,000 mg PO BID 04/08/15 [History] Gabapentin [Neurontin] 900 mg PO BEDTIME 04/14/15 [History] Budesonide [Pulmicort Flexhaler] 2 puff IH BID PRN 03/12/16 [History] Insulin Aspart [NovoLOG] 60 unit SUBCUT QPM 03/12/16 [History] Insulin Glargine,Hum.Rec.Anlog [Lantus Solostar] 70 unit SQ QPM 03/12/16 [ History] Areds 2 1 tab PO DAILY 09/17/16 [History] Metoprolol Succinate 100 mg PO QPM 09/17/16 [History] buPROPion [Wellbutrin] 300 mg PO DAILY 11/20/18 [History] Ferrous Sulfate 325 mg PO BID 11/26/18 [History] Ranitidine HCl 150 mg PO BID 11/26/18 [History] Tamsulosin HCl 0.4 mg PO DAILY 11/26/18 [History] Clindamycin HCl [Cleocin HCl] 300 mg PO DAILY #40 capsule 11/29/18 [Rx] Clindamycin HCl [Cleocin HCl] 300 mg PO QID #40 capsule 11/29/18 [Rx] Referrals: Esperanza Bowens MD [Ordering Only Provider] - (Follow up with Dr. Mary Bowens in 10 days) - Discharge Summary/Plan Comment DC Time >30 min.: No - General Info Date of Service: 11/29/18 Admission Dx/Problem (Free Text: Admission Diagnosis/Problem Admission Diagnosis/Problem Cellulitis Functional Status: Reports: Pain Controlled, Tolerating Diet, Ambulating - Review of Systems General: Reports: Fatigue. Denies: Fever, Weakness HEENT: Reports: No Symptoms Pulmonary: Denies: Shortness of Breath, Cough Cardiovascular: Reports: Edema. Denies: Chest Pain, Lightheadedness Gastrointestinal: Denies: Abdominal Pain, Nausea, Vomiting Genitourinary: Reports: No Symptoms Musculoskeletal: Reports: Leg Pain Skin: Reports: Other (redness to left leg) Neurological: Reports: No Symptoms - Patient Data Vitals - Most Recent: Last Vital Signs Temp 98.7 F 11/29/18 08:00 Pulse 59 L 11/29/18 08:00 Resp 20 11/29/18 08:00 BP 155/84 H 11/29/18 08:00 Pulse Ox 97 11/29/18 08:00 Weight - Most Recent: 338 lb 3.2 oz I&O - Last 24 hours: Intake & Output 11/29/18 11/29/18 11/29/18 06:59 14:59 22:59 Intake Total 50 Balance 50 Lab Results - Last 24 hrs: Laboratory Results - last 24 hr 11/29/18 Range/Units 07:35 POC Glucose 64 L (75-105) mg/dl Med Orders - Current: Current Medications Discontinued Medications Acetaminophen (Tylenol) 650 mg PO Q4H PRN PRN Reason: Pain (Mild 1-3)/fever Hydrocodone Bitart/Acetaminophen ([place] 325-5 Mg) 2 tab PO Q4H PRN PRN Reason: Pain (moderate 4-6) Last Admin: 11/28/18 18:37 Dose: 2 tab Albuterol (Ventolin Hfa) 0 gm INH Q6H PRN PRN Reason: Dyspnea Albuterol/Ipratropium (Duoneb 3.0-0.5 Mg/3 Ml) 3 ml NEB Q6H PRN PRN Reason: Dyspnea Aspirin (Halfprin) 81 mg PO DAILY [facility] Last Admin: 11/29/18 07:37 Dose: 81 mg Budesonide (Pulmicort) 0.5 mg INH BID PRN PRN Reason: Shortness of Breath Bupropion HCl (Wellbutrin Xl) 75 mg PO DAILY [facility] Last Admin: 11/25/18 07:30 Dose: 75 mg Cholecalciferol (Vitamin D3) 25 mcg PO BID [facility] Last Admin: 11/28/18 20:18 Dose: 25 mcg Clopidogrel Bisulfate (Plavix) 75 mg PO DAILY [facility] Last Admin: 11/29/18 07:36 Dose: 75 mg Docusate Sodium (Colace) 100 mg PO BID PRN PRN Reason: Constipation Enoxaparin Sodium (Lovenox) 40 mg SUBCUT Q24H [facility] Last Admin: 11/28/18 20:16 Dose: 40 mg Furosemide (Lasix) 80 mg PO DAILY [facility] Last Admin: 11/29/18 07:37 Dose: 80 mg Gabapentin (Neurontin) 600 mg PO QAM [facility] Last Admin: 11/29/18 07:37 Dose: 600 mg Heparin Sodium (Porcine) (Heparin Lock Flush 100 Units/Ml) Confirm Administered Dose 1,500 units .ROUTE .STK-MED ONE Stop: 11/26/18 01:49 Last Admin: 11/26/18 03:04 Dose: Not Given Heparin Sodium (Porcine) (Heparin Lock Flush 100 Units/Ml) 500 units FLUSH ASDIRECTED PRN PRN Reason: Other Last Admin: 11/29/18 06:03 Dose: 500 units Clindamycin Phosphate 300 mg/ (Premix) 50 mls @ 100 mls/hr IV Q6H [facility] Last Admin: 11/29/18 06:01 Dose: 100 mls/hr Sodium Chloride (Normal Saline) 1,000 mls @ 50 mls/hr IV ASDIRECTED [facility] Stop: 11/26/18 09:20 Last Admin: 11/26/18 02:18 Dose: 50 mls/hr Ibuprofen (Motrin) 200 mg PO Q4H PRN PRN Reason: Pain Last Admin: 11/24/18 20:50 Dose: 200 mg Insulin Glargine (Lantus Solostar) [facility] Last Admin: 11/29/18 07:50 Dose: 75 units Insulin Glargine (Lantus Solostar) 70 units SUBCUT QPM [facility] Last Admin: 11/28/18 20:47 Dose: 70 units Insulin Human Lispro (Humalog) [facility]UT [facility] Last Admin: 11/28/18 08:35 Dose: Not Given Insulin Human Lispro (Humalog) 60 unit SUBCUT QPM [facility] Last Admin: 11/27/18 20:53 Dose: Not Given Insulin Human Lispro (Humalog) 35 unit SUBCUT ONETIME ONE Stop: 11/25/18 09:01 Last Admin: 11/25/18 08:52 Dose: 35 units Insulin Human Lispro (Humalog) 4 unit SUBCUT ONETIME ONE Stop: 11/27/18 22:31 Insulin Human Lispro (Humalog) 4 unit SUBCUT ONETIME ONE Stop: 11/26/18 23:31 Last Admin: 11/27/18 00:22 Dose: 4 units Insulin Human Lispro (Humalog) 25 unit SUBCUT [facility] Last Admin: 11/29/18 07:41 Dose: 25 units Insulin Human Lispro (Humalog) 0 unit SUBCUT TIDAC PEND[facility]; Protocol Last Admin: 11/29/18 07:39 Dose: Not Given Lisinopril (Prinivil) 40 mg PO DAILY [facility] Last Admin: 11/29/18 07:36 Dose: 40 mg Magnesium Oxide (Magnesium Oxide) 500 mg PO BID [facility] Last Admin: 11/29/18 07:37 Dose: 500 mg Metformin HCl (Glucophage Xr) 1,000 mg PO BID [facility] Last Admin: 11/29/18 07:36 Dose: 1,000 mg Metoprolol Succinate (Toprol Xl) 100 mg PO QPM [facility] Last Admin: 11/28/18 20:19 Dose: 100 mg Mometasone Furoate/Formoterol Fumar (Dulera 100-5 Mcg) 2 puff IH BID [facility] Last Admin: 11/29/18 07:40 Dose: 2 puff Morphine Sulfate (Morphine) 2 mg IVPUSH Q2H PRN PRN Reason: Pain (severe 7-10) Multivitamins/Minerals/Vitamin C (Tab-A-Hector) 1 tab PO DAILY [facility] Last Admin: 11/29/18 07:37 Dose: 1 tab Ptom Vilazodone ([Viibryd] 10mg Tab) 10 mg PO DAILY [facility] Last Admin: 11/29/18 07:38 Dose: 10 mg Ondansetron HCl (Zofran) 4 mg IV Q6H PRN PRN Reason: Nausea/Vomiting Pantoprazole Sodium (Protonix) 40 mg PO ACBREAKFAST [facility] Last Admin: 11/29/18 06:01 Dose: 40 mg Sodium Chloride (Saline Flush) 10 ml FLUSH ASDIRECTED PRN PRN Reason: Keep Vein Open Temazepam (Restoril) 15 mg PO BEDTIME PRN PRN Reason: Sleep - Exam General: Reports: Alert, Oriented HEENT: Reports: Mucous Membr. Moist/[place] Neck: Reports: Supple Lungs: Reports: Clear to Auscultation, Normal Respiratory Effort Cardiovascular: Reports: Regular Rate, Regular Rhythm GI/Abdominal Exam: Normal Bowel Sounds, Soft, Non-Tender Extremities: Normal Inspection, Leg Pain, Increased Warmth (patient noted to have some improvement of redness and edema to left lower extremity. Does still have warmth but it has improved. Less tender than prior. ), Redness Wound/Incisions: Reports: Erythema Improving Neurological: Reports: No New Focal Deficit
== END 2018-11-29 10:40 | disposition home or self-care (01) | DRG 603 ==
LOC: CC.MS 12:33 → UNDOADMIN 12:34
PROVIDERS: ADMIT Family Medicine; ATTEND Family Medicine
PROC: 05HN33Z Insertion of Infusion Device into Left Internal Jugular Vein, Percutaneous Approach (ICD-10-PCS; principal; 2018-11-24)
PROC: 3E04329 Introduction of Other Anti-infective into Central Vein, Percutaneous Approach (ICD-10-PCS; 2018-11-24)
DX: L03.116 Cellulitis of left lower limb (principal); I10 Essential (primary) hypertension; I25.2 Old myocardial infarction; R94.4 Abnormal results of kidney function studies; E78.00 Pure hypercholesterolemia, unspecified; E11.42 Type 2 diabetes mellitus with diabetic polyneuropathy; E66.9 Obesity, unspecified; Z87.891 Personal history of nicotine dependence; Z88.1 Allergy status to other antibiotic agents; Z79.02 Long term (current) use of antithrombotics/antiplatelets; Z79.82 Long term (current) use of aspirin; Z79.4 Long term (current) use of insulin; Z79.899 Other long term (current) drug therapy
CPT/HCPCS: 36415; 71045; 80048; 82962; 85025; 86140; 94640; A9270-GY; J1642; J1650; J1815; J1815-GY; J3490; J7030

== ENCOUNTER → 2020-06-21 | Day surgery (SDC) | payer MEDICARE, OTHER ==
[~2020-06-21] MED LIST: Ketamine 200 MG/20 ML MDV ONE; Lactated Ringers 1,000 ML IV SCH; Midazolam 1 MG/ML 2 ML SDV ONE; Phenylephrine 1% 10 MG/ML SDV ONE; Propofol 200 MG/20 ML SDV ONE
[2020-06-21 08:21] VITALS: BP 127/67; PULSE 87
--- NOTE | 2020-06-21 10:50 | OR ---
DATE OF OPERATION: 06/21/2020 PREOPERATIVE DIAGNOSIS: HISTORY OF POLYPS. POSTOPERATIVE DIAGNOSIS: HISTORY OF POLYPS. SURGEON: Kavin Hampton MD PROCEDURE: DIAGNOSTIC COLONOSCOPY. ANESTHESIA: MAC. COMPLICATIONS: None. SPECIMEN: None. FINDINGS: 1. Full-length colonoscopy. 2. Minimal sigmoid diverticulosis. 3. No signs of polyp recurrence. RECOMMENDATIONS: Followup colonoscopy routine in 10 years. INDICATIONS: The patient has a history of polyps in the past. I believe it has been 5 or 6 years since his last endoscopy. He was sent for a surveillance scope. DESCRIPTION OF PROCEDURE: The patient was prepped and draped, placed in the left lateral decubitus position. A lubricated Olympus colonoscope was inserted and easily advanced to the cecum. Direct visualization of the ileocecal valve and appendiceal orifice was accomplished. The bowel prep was adequate. Upon withdrawal of the scope, cecum, ascending and transverse colon appeared benign. The patient does have some scattered diverticula throughout most of the left colon, very mild in severity. No inflammatory changes were seen throughout the whole length of the colon. I could find no signs of polyps, masses, ulceration or bleeding sites. No vascular abnormalities or signs of colitis. The rectal vault was benign. Retroflexion showed no perianal lesions. Air was suctioned. Scope was removed without complication. EMILIA/KEDAR /[id number]
== END ==
LOC: CC.SDS 06:44
PROVIDERS: ATTEND Family Medicine
DX: Z12.11 Encounter for screening for malignant neoplasm of colon (principal); K57.30 Diverticulosis of large intestine without perforation or abscess without bleeding; G47.33 Obstructive sleep apnea (adult) (pediatric); I10 Essential (primary) hypertension; E11.42 Type 2 diabetes mellitus with diabetic polyneuropathy; I25.2 Old myocardial infarction; E55.9 Vitamin D deficiency, unspecified; E66.01 Morbid (severe) obesity due to excess calories; I25.10 Atherosclerotic heart disease of native coronary artery without angina pectoris; Z68.42 Body mass index [BMI] 45.0-49.9, adult; Z86.010 Personal history of colon polyps; J45.909 Unspecified asthma, uncomplicated; H40.9 Unspecified glaucoma; K21.9 Gastro-esophageal reflux disease without esophagitis; G56.00 Carpal tunnel syndrome, unspecified upper limb; E78.5 Hyperlipidemia, unspecified; H90.6 Mixed conductive and sensorineural hearing loss, bilateral; Z01.812 Encounter for preprocedural laboratory examination; H93.19 Tinnitus, unspecified ear; Z88.1 Allergy status to other antibiotic agents; Z20.822 Contact with and (suspected) exposure to COVID-19; Z79.4 Long term (current) use of insulin; M19.90 Unspecified osteoarthritis, unspecified site; Z95.5 Presence of coronary angioplasty implant and graft; Z87.891 Personal history of nicotine dependence; Z98.890 Other specified postprocedural states; Z79.899 Other long term (current) drug therapy
CPT/HCPCS: 00811; 45378; J2250; J2370; J2704; J7120

== ENCOUNTER 2023-01-16 09:05 | Emergency (ER) | payer OTHER, MEDICARE ==
[2023-01-16] MEDS ORDERED: Sodium Chloride 0.9% 10 ML Syringe FLUSH PRN (09:43)
[2023-01-16 10:00] LABS: BASOPHILS ABSOLUTE AUTO 0.02 10^3/uL (0.00-0.50); BASOPHILS PERCENT AUTO 0.2 % (0-1); EOSINOPHILS ABSOLUTE AUTO 0.19 10^3/uL (0.00-1.50); EOSINOPHILS PERCENT AUTO 2.2 % (0-6); HEMATOCRIT 50.9 % (42.0-52.0); HEMOGLOBIN 16.6 g/dL (14.0-18.0); IMMATURE GRAN ABSOLUTE AUTO 0.04 10^3/uL (0.00-0.49); IMMATURE GRAN PERCENT AUTO 0.5 % (0.0-4.9); LYMPHOCYTES ABSOLUTE AUTO 2.57 10^3/uL (0.60-5.00); LYMPHOCYTES PERCENT AUTO 29.4 % (24-44); MEAN CORPUSCULAR HEMOGLOBIN 28.8 pg (27.0-32.0); MEAN CORPUSCULAR HGB CONC 32.6 g/dL (32.0-36.0); MEAN CORPUSCULAR VOLUME 88.2 fL (83.0-97.0); MONOCYTES ABSOLUTE AUTO 0.96 10^3/uL (0.00-1.50); NEUTROPHILS ABSOLUTE AUTO 4.95 x10^3/uL (1.80-8.00); NEUTROPHILS PERCENT AUTO 56.7 % (41-71); PLATELET COUNT,PLT 214 10^3/uL (150-400); RED BLOOD CELL COUNT 5.77 x10^6/uL (4.50-6.00); WHITE BLOOD CELL COUNT,WBC 8.7 10^3/uL (4.0-11.0)
[2023-01-16 10:01] LABS: BILIRUBIN,URINE NEGATIVE (NEGATIVE); COLOR,URINE YELLOW (YELLOW); GLUCOSE,URINE >=1000 mg/dL (NEGATIVE); KETONES,URINE NEGATIVE (NEGATIVE); LEUKOCYTE ESTERASE,URINE NEGATIVE (NEGATIVE); NITRITE,URINE NEGATIVE (NEGATIVE); OCCULT BLOOD,URINE LARGE (NEGATIVE); PH,URINE 5.5 (4.5-8.0); PROTEIN,URINE NEGATIVE (NEGATIVE); UROBILINOGEN,URINE 0.2 EU/dL (0.2-1.0)
[2023-01-16] MEDS ORDERED: Ondansetron 4 MG/2 ML SDV IVPUSH STA (10:03)
[2023-01-16] MEDS ORDERED: Naloxone 2 MG/2 ML Syringe IVPUSH PRN (10:06)
[2023-01-16] MEDS ORDERED: Morphine 2 MG/ML SYRINGE IM ONE (10:06)
[2023-01-16 10:14] LABS: APPEARANCE,URINE SLIGHTLY CLOUDY (CLEAR); BACTERIA,URINE OCCASIONAL /HPF (NOT SEEN); RBC,URINE >100 /HPF (0-5); SQUAMOUS EPITHELIAL CELLS,UR OCCASIONAL /HPF (NOT SEEN); WBC,URINE NOT SEEN /HPF (0-5)
[2023-01-16 10:25] LABS: ALBUMIN 3.6 g/dL (3.4-5.0); BILIRUBIN TOTAL 0.3 mg/dL (0.0-1.0); CALCIUM 9.4 mg/dL (8.4-10.1); CREATININE 1.1 mg/dL (0.7-1.3); EST CRCL DRUG DOSING (CG) 74.65 mL/min; POTASSIUM,K 4.4 mEq/L (3.5-5.0); PROTEIN TOTAL,TP 7.9 g/dL (6.4-8.2)
[2023-01-16] MEDS ORDERED: Sodium Chloride 0.9% 1,000 ML IV SCH (12:00)
[2023-01-16] MEDS ORDERED: Ketorolac 30 MG/ML SDV IVPUSH ONE (13:04)
[2023-01-16] MEDS ORDERED: Acetaminophen/oxyCODONE 325-5 MG Tab PO PRN (14:48)
[2023-01-16 16:54] VITALS: BP 140/78; PULSE 76
== END 2023-01-16 15:00 | disposition home or self-care (01) ==
LOC: CC.ED 09:05
DX: N20.2 Calculus of kidney with calculus of ureter (principal); I10 Essential (primary) hypertension; J44.9 Chronic obstructive pulmonary disease, unspecified; E78.00 Pure hypercholesterolemia, unspecified; E11.42 Type 2 diabetes mellitus with diabetic polyneuropathy; E66.9 Obesity, unspecified; Z68.42 Body mass index [BMI] 45.0-49.9, adult; Z87.891 Personal history of nicotine dependence; Z90.49 Acquired absence of other specified parts of digestive tract; Z88.1 Allergy status to other antibiotic agents; Z79.82 Long term (current) use of aspirin; Z79.4 Long term (current) use of insulin; Z79.899 Other long term (current) drug therapy; Z20.822 Contact with and (suspected) exposure to COVID-19
CPT/HCPCS: 36415; 74018; 74176; 80053; 81001; 83605; 83690; 83880; 85025; 96361; 96372; 96374; 96375; 99284; 99284-25; A9270-GY; J1885; J2270; J2405; J7030; U0002